=== PATIENT | female | born 1950 | race African-American/Black ===

== ENCOUNTER 2018-11-17 06:22 | Emergency (ER) | payer MEDICARE, OTHER ==
[~2018-11-17] VITALS: Ht 162.6 cm; Wt 63.5 kg
[~2018-11-17 06:22] MED LIST: ALENDRONATE SOD70 MG ORAL; BACTRIM DS TAB1 EAC1 ORAL; BACTRIM-DS1 EA PO; CYCLOBENZAPRINE10 MG ORAL; FOLIC ACID1 MG ORAL; IBUPROFEN600 MG ORAL; LANTUS SOL100 UNIT/1 SUBQ; LEVAQUIN750 MG ORAL; LEVEMIR FL100 UNIT/1 SUBQ; LEVOTHYROXINE50 MCG ORAL; METFORMIN HCL500 M1 ORAL; MULTIVITAMINS1 EAC2 ORAL; NORCO 5-325 TA1 EACH ORAL; OMEGA-3100 M1 PO; OMEPRAZOLE20 M2 ORAL; OMEPRAZOLE20 M3 ORAL; PREDNISONE10 MG ORAL; PREDNISONE5 MG ORAL; TRAMADOL HCL50 MG ORAL; VALIUM5 MG ORAL
[2018-11-17 06:29] VITALS: BP 121/70
[2018-11-17] MEDS ORDERED: Sodium Chloride 500ML 500 ML IV ONE (06:45)
[2018-11-17 07:16] LABS: ANION GAP 11 mmol/L (5-15); BLOOD UREA NITROGEN 25 mg/dL (7-18); CALCIUM 9.2 MG/DL (8.5-10.1); CARBON DIOXIDE 22 MMOL/L (21-32); CHLORIDE 102 MMOL/L (98-107); POTASSIUM 4.1 MMOL/L (3.5-5.1); SODIUM 135 MMOL/L (136-145)
[2018-11-17 07:18] LABS: BASOPHILS % (AUTO) 2.4 % (0.0-2.0); EOSINOPHILS % (AUTO) 1.7 % (0.0-3.0); HEMATOCRIT 32.5 % (37.0-47.0); HEMOGLOBIN 10.8 G/DL (12.0-16.0); LYMPHOCYTES % (AUTO) 37.9 % (20.0-45.0); MEAN CORPUSCULAR VOLUME 98 FL (80-99); MONOCYTES % (AUTO) 9.7 % (1.0-10.0); NEUTROPHILS % (AUTO) 48.3 % (45.0-75.0); PLATELET COUNT 150 K/UL (150-450); RED BLOOD COUNT 3.31 M/UL (4.20-5.40); RED CELL DISTRIBUTION WIDTH 11.9 % (11.6-14.8); WHITE BLOOD COUNT 6.9 K/UL (4.8-10.8)
[2018-11-17 07:21] LABS: ALANINE AMINOTRANSFERASE 68 U/L (12-78); ALBUMIN 3.4 G/DL (3.4-5.0); ALBUMIN/GLOBULIN RATIO 0.7 (1.0-2.7); ALKALINE PHOSPHATASE 50 U/L (46-116); ASPARTATE AMINO TRANSFERASE 72 U/L (15-37); BILIRUBIN,TOTAL 0.6 MG/DL (0.2-1.0)
[2018-11-17] MEDS ORDERED: METFORMIN HCL500 M1 ORAL (08:05)
[2018-11-17] MEDS ORDERED: SYNTHROID50 MCG ORAL (08:05)
[2018-11-17 08:12] VITALS: BP 136/65
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
== END 2018-11-17 08:22 | disposition home or self-care (01) ==
LOC: EDBD 06:22 → EMR 07:40
DX: Z76.0 Encounter for issue of repeat prescription (principal); F41.9 Anxiety disorder, unspecified; Z88.0 Allergy status to penicillin; E11.9 Type 2 diabetes mellitus without complications; K21.9 Gastro-esophageal reflux disease without esophagitis
CPT/HCPCS: 36415; 80053; 80307; 85025; 99284; G0480; 80329

== ENCOUNTER 2020-07-19 13:54 | Inpatient (IN) | payer MEDICARE, OTHER ==
[~2020-07-19] VITALS: Ht 154.9 cm; Wt 55.8 kg
[~2020-07-19 13:54] MED LIST changes: +SYNTHROID50 MCG ORAL
[2020-07-19 14:00] VITALS: BP 134/70
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
[2020-07-19] MEDS ORDERED: Metoclopramide 10mg/2ml Inj IVP ONE (14:15)
[2020-07-19] MEDS ORDERED: DiphenhydrAMINE 50mg/ml Inj IVP ONE (14:15)
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
[2020-07-19 14:47] LABS: HEMATOCRIT 22.3 % (37.0-47.0); HEMOGLOBIN 7.1 G/DL (12.0-16.0); MEAN CORPUSCULAR VOLUME 93 FL (80-99); PLATELET COUNT 131 K/UL (150-450); RED CELL DISTRIBUTION WIDTH 13.3 % (11.6-14.8); WHITE BLOOD COUNT 8.6 K/UL (4.8-10.8)
[2020-07-19 14:47] LABS: APPEARANCE,URINE SLIGHTLY CLOUDY; BILIRUBIN, URINE NEGATIVE (NEGATIVE); COLOR,URINE PALE YELLOW; GLUCOSE, URINE (UA) NEGATIVE (NEGATIVE); KETONES,URINE NEGATIVE (NEGATIVE); LEUKOCYTE ESTERASE ,URINE NEGATIVE (NEGATIVE); NITRITE,URINE NEGATIVE (NEGATIVE); PH,URINE 5 (4.5-8.0); PROTEIN,URINE 2+ (NEGATIVE); UROBILINOGEN,URINE NORMAL MG/DL (0.0-1.0)
[2020-07-19 14:55] LABS: INR 1.2 (0.9-1.1)
[2020-07-19 15:10] LABS: ANION GAP 19 mmol/L (5-15); BLOOD UREA NITROGEN 79 mg/dL (7-18); CALCIUM 9.3 MG/DL (8.5-10.1); CARBON DIOXIDE 15 MMOL/L (21-32); CHLORIDE 109 MMOL/L (98-107); CREATININE 5.5 MG/DL (0.55-1.30); POTASSIUM 3.7 MMOL/L (3.5-5.1); SODIUM 142 MMOL/L (136-145)
--- NOTE | 2020-07-19 15:26 | Diagnostic Imaging Report ---
Procedure: XRAY Chest 1v Reason for study: Shortness of breath. Comparison films: 10/31/2018. FINDINGS: A single one view chest is obtained. Vascularity is normal. The lung concepcion are clear bilaterally. Cardiac and mediastinal silhouette are within normal limits. CP angles are sharp. Old healed fracture deformity of the right humeral shaft noted. Fixation rods and screws noted in the proximal lumbar spine. IMPRESSION: NO ACUTE CARDIOPULMONARY DISEASE.
[2020-07-19 15:27] LABS: ALANINE AMINOTRANSFERASE 34 U/L (12-78); ALBUMIN 3.5 G/DL (3.4-5.0); ALBUMIN/GLOBULIN RATIO 0.8 (1.0-2.7); ALKALINE PHOSPHATASE 38 U/L (46-116); AMYLASE 117 U/L (25-115); ASPARTATE AMINO TRANSFERASE 39 U/L (15-37); BILIRUBIN,TOTAL 0.5 MG/DL (0.2-1.0); CREATINE KINASE 207 U/L (26-308); FERRITIN 20 NG/ML (8-388); LACTATE DEHYDROGENASE 229 U/L (81-234)
--- NOTE | 2020-07-19 15:40 | NUR ---
ED Nurse Note: Typing and screening specimen sent.
[2020-07-19 16:02] VITALS: BP 127/80
--- NOTE | 2020-07-19 16:02 | NUR ---
ED Nurse Note: Collected covid19 swab and repeat lactic acid then sent.
--- NOTE | 2020-07-19 17:38 | NUR ---
ED Nurse Note: REPORT GIVEN TO ARTURO MILIAN
[2020-07-19 17:50] VITALS: BP 135/70
--- NOTE | 2020-07-19 17:50 | NUR ---
ED Nurse Note: Patient transferred to Med Surg unit with all her belongings sent with her. Stable for transport.
--- NOTE | 2020-07-19 17:50 | NUR ---
NURSE NOTES: Received patient into room 406 bed 2,alert and oriented x4,respirations unlabored.Patient state she is blind in the right eye and has partial sight in the left eye.Patient will need assist.Will notify DR of patient room number and for orders Bed alarm on,call light within reach
[2020-07-19 18:21] VITALS: BP 140/70
[2020-07-19] MEDS ORDERED: HydrALAZINE 25mg tab ORAL PRN (19:00)
[2020-07-19] MEDS ORDERED: Metoclopramide 10mg/2ml Inj IVP PRN (19:00)
--- NOTE | 2020-07-19 19:25 | NUR ---
NURSE NOTES: Received report from Yary MORRIS.
--- NOTE | 2020-07-19 19:25 | NUR ---
NURSE NOTES: Received pt. in bed, awake, alert and oriented x4. Breathing even and unlabored. No sob noted. Denies any pain at this time. Pt. able to verbalize the reason of her admission. Body assessment done, no skin breakdown noted. Oriented to hospital policies and inside her room.Admission orders was in place by Dr. Zaragoza. Orders carried out. Pt. was placed NPO, made her aware and verbalized understanding. Started ivf of 1/2 NS x 50cc/hr, infusing well. Will continue with plan of care. Rojas stoll called and is aware of pt. being admitted.
[2020-07-19] MEDS ORDERED: Varibar Honey 250ml MC PRN (19:45)
[2020-07-19] MEDS ORDERED: Varibar Thin Liquid powder 148gm MC PRN (19:45)
[2020-07-19] MEDS ORDERED: Varibar Nectar 240ml MC PRN (19:45)
[2020-07-19] MEDS ORDERED: Varibar Pudding 230ml MC PRN (19:45)
--- NOTE | 2020-07-19 19:45 | NUR ---
NURSE HAND-OFF: VIC RN Important Events on Shift:[] Patient Status: [] Diet: [] Pending Orders: [] Pending Results/Labs:[] Pending MD notification:[] Latest Vital Signs: Temperature 97.7 , Pulse 86 , B/P 140 /70 , Respiratory Rate 18 , O2 SAT 99 , Room Air, O2 Flow Rate . Vital Sign Comment: [] Latest English Fall Score: Fall Risk: Safety Measures: Call light Within Reach, Bed Alarm , Side Rails Side Rails x2, Bed position . Fall Precautions: Yellow Socks Yellow Gown Door Sign Patient Fall Education Report given to [].
[2020-07-19] MEDS ORDERED: Dextrose 50% 25ml Syringe IV PRN (22:00)
[2020-07-19 22:43] VITALS: BP 107/67
[2020-07-19] MEDS: Insulin NovoLOG Flexpen S/S (insulin sensitive) SUBQ SCH (23:00)
[2020-07-19 23:03] VITALS: BP 107/77
[2020-07-19] MEDS ORDERED: D5 1/2NS 1,000 ML IV SCH (23:45)
--- NOTE | 2020-07-20 01:09 | NUR ---
NURSE NOTES: Pt. comfortable @ all times. Denies any pain. Due meds given. Slept @ long intervals. Vitals signs monitored. BS checked =106; IVF changed to D5 1/2 NS x 50 cc/hr as ordered. NPO instructed and verbalized understanding. Will continue to monitor.
[2020-07-20 04:00] VITALS: BP 119/74
[2020-07-20] MEDS: Sodium Citrate 30ml ORAL SCH ×4 (05:53→19:02)
[2020-07-20] MEDS: Insulin NovoLOG Flexpen S/S (insulin sensitive) SUBQ SCH ×3 (05:54→16:30)
[2020-07-20 06:36] LABS: HEMATOCRIT 20.5 % (37.0-47.0); MEAN CORPUSCULAR VOLUME 93 FL (80-99); PLATELET COUNT 107 K/UL (150-450); RED BLOOD COUNT 2.21 M/UL (4.20-5.40); RED CELL DISTRIBUTION WIDTH 12.7 % (11.6-14.8); WHITE BLOOD COUNT 7.5 K/UL (4.8-10.8)
[2020-07-20 06:45] LABS: HEMOGLOBIN 6.7 G/DL (12.0-16.0)
[2020-07-20 07:14] LABS: ALANINE AMINOTRANSFERASE 31 U/L (12-78); ALBUMIN 3.3 G/DL (3.4-5.0); ALBUMIN/GLOBULIN RATIO 0.8 (1.0-2.7); ALKALINE PHOSPHATASE 37 U/L (46-116); ANION GAP 17 mmol/L (5-15); ASPARTATE AMINO TRANSFERASE 36 U/L (15-37); BILIRUBIN,TOTAL 0.5 MG/DL (0.2-1.0); BLOOD UREA NITROGEN 69 mg/dL (7-18); CALCIUM 8.4 MG/DL (8.5-10.1); CARBON DIOXIDE 16 MMOL/L (21-32); CHLORIDE 116 MMOL/L (98-107); CHOLESTEROL 138 MG/DL (< 200); CREATINE KINASE 162 U/L (26-308); GAMMA GLUTAMYL TRANSPEPTIDASE 33 U/L (5-85); HDL CHOLESTEROL 33 MG/DL (40-60); PHOSPHORUS 3.3 MG/DL (2.5-4.9); POTASSIUM 3.9 MMOL/L (3.5-5.1); SODIUM 149 MMOL/L (136-145); TRIGLYCERIDES 104 MG/DL (30-150)
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
--- NOTE | 2020-07-20 07:35 | NUR ---
NURSE NOTES: Hgb was called in by lab=6.[address] Mohan and made aware, ordered to consult Dr. Nunez, collect stool for guaiac x 3. Orders taken and carried out. Called Dr. Nunez and made aware, ordered to transfuse x 1PRBC.Endorsed to Yary MORRIS.
--- NOTE | 2020-07-20 07:40 | NUR ---
NURSE HAND-OFF: Important Events on Shift:admission process, low hgb Patient Status: Diet: NPO except ice chips and meds Pending Orders: Pending Results/Labs: Pending MD notification: Latest Vital Signs: Temperature 98.4 , Pulse 85 , B/P 119 /74 , Respiratory Rate 18 , O2 SAT 95 , Room Air, O2 Flow Rate . Vital Sign Comment: Latest English Fall Score: 55 Fall Risk: High Risk Safety Measures: Call light Within Reach, Bed Alarm Zone 2, Side Rails Side Rails x2, Bed position Low and Locked. Fall Precautions: Yellow Socks Yellow Gown Door Sign Patient Fall Education Report given to Yary MORRIS.
[2020-07-20 07:50] LABS: % IRON SATURATION 19 % (15-50); IRON 73 ug/dL (50-175); TOTAL IRON BINDING CAPACITY 383 ug/dL (250-450)
[2020-07-20 08:00] VITALS: BP 145/75
--- NOTE | 2020-07-20 08:00 | NUR ---
NURSE NOTES: patient alert and oriented,respirations unlabored.IV fluids infusing as ordered.Dockery catheter is in place with yellow urine noted,sediments noted in drainage tube.Patient is NPO for schedule test.Bed alarm on,call light within reach.
[2020-07-20 08:18] LABS: INR 1.3 (0.9-1.1)
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
--- NOTE | 2020-07-20 09:25 | NUR ---
RD ASSESSMENT & RECOMMENDATIONS SEE CARE ACTIVITY FOR COMPLETE ASSESSMENT DAILY ESTIMATED NEEDS: Needs based on Renal, 52kg 25-35 kcals/kg 5505-1415 total kcals 1-1.5 g protein/kg 52-78 g total protein 25-30 mL/kg 1656-1761 total fluid mLs NUTRITION DIAGNOSIS: Altered nutrition related lab values r/t Clinical status as evidenced by Hgb 6.7, elev Na 149, elev BUN 69, elev Creat 5.0. CURRENT DIET: NPO PO DIET RECOMMENDATIONS: rec LOW NA DIET / texture per BUNCHER OPERATOR ADDITIONAL RECOMMENDATIONS: 1) Maintain daily wts on calibrated bed scale 2) F/up w/ H&P 3) Pt adm w/ renal failure-> monitor lytes 4) Add NEPRO qdaily w/ diet 5) Monitor BG, need for carb control diet
[2020-07-20] MEDS: Docusate 100mg cap ORAL SCH ×3 (09:44→19:02)
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
[2020-07-20] MEDS ORDERED: Iron Sucrose 200 MG in NS 110 ML IV ONE (11:00)
--- NOTE | 2020-07-20 11:49 | Diagnostic Imaging Report ---
EXAM: ULTRASOUND US Renal Comp CLINICAL HISTORY: Abdominal pain. COMPARISON: None TECHNIQUE: Ultrasound examination of the kidneys includes grayscale images, and color and spectral doppler analysis. FINDINGS: The right kidney measures 9.1 x 4.9 x 4.4 cm and the left kidney measures 7.7 x 4.4 x 3.3 cm. Kidneys appear echogenic likely reflecting medical renal disease. There is no hydronephrosis or stone seen bilaterally. Urinary bladder is empty with Nails catheter in place IMPRESSION: SMALL LEFT KIDNEY. BOTH KIDNEYS APPEAR ECHOGENIC LIKELY REFLECTING MEDICAL RENAL DISEASE. NO OBSTRUCTIVE UROPATHY. 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
[2020-07-20 12:00] VITALS: BP 142/70
--- NOTE | 2020-07-20 12:00 | History and Physical Report ---
DATE OF ADMISSION: 07/19/2020 TIME SEEN: 10 a.m. CONSULTANTS: 1. Dr. Nunze. 2. Almas Champion MD. 3. Severiano Stanton MD. CHIEF COMPLAINT: Failure to thrive, weakness, nausea, acute renal failure, severe anemia. BRIEF HISTORY: This is a 70-year-old female who lives at home presents with one week of increased weakness, nausea, and came to [place], diagnosed with severe anemia at 6.7, also acute renal failure, and failure to thrive. The patient was admitted to medical floor. Currently, calm in room, slightly weak, no complaint. REVIEW OF SYSTEMS: No chest pain. No shortness of breath. Slight nausea. No vomiting. No diarrhea. PAST MEDICAL HISTORY: Includes diabetes, arthritis, anemia. PAST SURGICAL HISTORY: Right eye. MEDICATIONS: Epoetin, allopurinol, docusate sodium, magnesium, levothyroxine, insulin, pantoprazole, hydralazine, Reglan. ALLERGIES: Penicillin. SOCIAL HISTORY: No smoking. No alcohol. No intravenous drug abuse. FAMILY HISTORY: Noncontributory. PHYSICAL EXAMINATION: GENERAL: Slightly anxious in bed, oriented x2, in no acute distress. VITAL SIGNS: Temperature 98, pulse 84, respiratory rate 18, blood pressure 119/74. CARDIOVASCULAR: No murmur. LUNGS: Distant and clear. ABDOMEN: Bowel sound positive. Nontender. Nondistended. EXTREMITIES: No cyanosis or edema. NEUROLOGIC: The patient moves all extremities, slightly weak. LABORATORY DATA: Labs at this time show hemoglobin and hematocrit of 7.1 and 22 now is 6.7 and 20, otherwise platelets 107, thrombocytopenia. BMP shows sodium 149, chloride 119, CO2 16, BUN and creatinine 5.0, glucose 133. Calcium 8.4, magnesium 1.5. BMP is 969. Albumin 3.3. INR is 1.3 and PTT is 25. Urinalysis shows 3+ blood, 2+ protein. Urine toxicology is negative. ASSESSMENT: 1. Acute renal failure. 2. Weakness. 3. Nausea. 4. Anemia. 5. Thrombocytopenia. 6. Failure to thrive. 7. Right eye blind. 8. Malnutrition. 9. Diabetes. 10. Arthritis. PLAN: 1. Transfuse as needed. 2. Nephrology followup. 3. IV fluids. 4. Blood sugar control. 5. Pain control. 6. 7. CBC and BMP in the morning. 8. Dietary evaluation. 9. PT evaluation. Danyel Mohan D.O. DR: Rafy JOB#: [id number] CC:
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
--- NOTE | 2020-07-20 15:09 | NUR ---
NURSE NOTES:patient stated that her blood type did not match the type and cross from the lab. Patient stated that she is O+ and not A+. patient is alert and oriented x4. Placed another order for the type and cross to verify patient type and cross.
[2020-07-20 16:00] VITALS: BP 127/63
--- NOTE | 2020-07-20 16:22 | Cardiology Report ---
APPROVED REPORT EXAM: Two-dimensional and M-mode echocardiogram with Doppler and color Doppler. INDICATION Congestive Heart Failure M-Mode DIMENSIONS IVSd1.0 (0.7-1.1cm)Left Atrium (MM)3.7 (1.6-4.0cm) LVDd4.1 (3.5-5.6cm)Aortic Root3.1 (2.0-3.7cm) PWd1.0 (0.7-1.1cm)Aortic Cusp Exc.2.0 (1.5-2.0cm) IVSs1.7 cmEPSS0.3 (>1.0cm) LVDs2.7 (2.5-4.0cm) PWs1.1 cm <Conclusion> Normal left ventricular chamber size, systolic function and wall motion. Left ventricular ejection fraction estimated to be 65-70%. Mild left ventricular hypertrophy by 2-D. No evidence of pericardial effusion. All other cardiac chamber sizes are within normal limits. Focal aortic valve sclerosis with adequate cusp excursion. Thickened mitral valve leaflets with normal excursion. Mild mitral annulus and aortic root calcification. Pulmonic valve not well visualized. Normal tricuspid valve structure. IVC at normal size and collapsing with respiration. A color flow and spectral Doppler study was performed and revealed: No aortic insufficiency. Trace mitral regurgitation. Mitral diastolic velocities suggest reduced left ventricular relaxation c/w mild LV diastolic dysfunction (Grade I ). Trace to mild tricuspid regurgitation. Tricuspid systolic velocities suggests peak right ventricular systolic pressure of 30 mmHg. Pulmonic regurgitation present.
--- NOTE | 2020-07-20 16:29 | Cardiology Report ---
APPROVED REPORT EKG Measurement Heart [id number] <Conclusion> Normal sinus rhythm Left anterior fascicular block Nonspecific ST and T wave abnormality Abnormal ECG
--- NOTE | 2020-07-20 16:32 | NUR ---
NURSE NOTES: Received phone call from [facility] Abi, she rechecked type and cross. Patient's blood type is A+ , unable to give o+ since there is A+ blood in [facility]. machine shorthand reporter endorsed to primary nurse Yary to follow up.
--- NOTE | 2020-07-20 16:46 | NUR ---
NURSE NOTES: Patient was typed and screen again to verify blood type,lab results state that patient is A positive.Patient still does no believe that this results is correct,patient refusing transfusion,will notify DR Mills
--- NOTE | 2020-07-20 17:50 | NUR ---
NURSE NOTES: DR Nunez and DR Dumont aware of patient concern regarding Blood transfusion and Blood type and Patient refusing blood transfusion. DR Nunez aware of order of patient to received Iron Sucrose IV and okay to give as ordered.Patient concern about constipation and wants to receive Iron Sucrose later.Patient wants to have a bowel movement first.
--- NOTE | 2020-07-20 19:40 | NUR ---
NURSE HAND-OFF: Colin MORRIS Important Events on Shift:[]Blood transfusion pending,patient refusing DRs aware Patient Status: [] Diet: [ Renal ] Pending Orders: [Blood transfusion ] Pending Results/Labs:[] Pending MD notification:[] Latest Vital Signs: Temperature 98.4 , Pulse 87 , B/P 127 /63 , Respiratory Rate 18 , O2 SAT 99 , Room Air, O2 Flow Rate . Vital Sign Comment: [] Latest English Fall Score: 55 Fall Risk: High Risk Safety Measures: Call light Within Reach, Bed Alarm Zone 2, Side Rails Side Rails x2, Bed position Low and Locked. Fall Precautions: Yellow Socks Yellow Gown Door Sign y Patient Fall Education Report given to [].
[2020-07-20 20:00] VITALS: BP 142/74
--- NOTE | 2020-07-20 20:02 | NUR ---
NURSE NOTES: Pt. received from ARTURO Pringle. Pt. AAOx4, on room air, breathing even and unlabored, no complaints of pain, no indications of respiratory distress at this time. Pt. complaining of constipation, will follow up with ordered interventions. Endorsed by day shift RN pt refused blood transfusion, MD Nunez and MD Champion aware, will discuss concerns with pt. IV noted left AC 20g intact and patent running D5W at 75 cc. Bed low and locked, side rails x2 up, bed alarm active, and call light in reach.
[2020-07-20] MEDS: Epoetin Alfa-EPBX (NON ESRD)10,000 unit/ml vial SUBQ SCH (20:57)
--- NOTE | 2020-07-20 21:15 | NUR ---
NURSE NOTES: Discussed with pt. concern for need for venofer and blood transfusion. Pt. concerned with wanting strong bowel movement before receiving venofer. Discussed risks vs. benefits regarding not receiving interventions for low hemoglobin and pt. acknowledged and verbalized understanding. Will continue to give pt. education.
--- NOTE | 2020-07-20 23:00 | NUR ---
NURSE NOTES: Pt. with small walnut sized bowel movement, still complaining of constipation and abdominal discomfort. Discussed MD's order for venofer and pt. continues to refuse administration until complete relief of abdominal symptoms. Discussed concerns with low hemoglobin and need to follow up with MD's orders.
[2020-07-21] VITALS: BP 139/69
[2020-07-21] MEDS: Sodium Citrate 30ml ORAL SCH ×5 (00:50→23:34)
[2020-07-21 04:00] VITALS: BP 133/69
[2020-07-21] MEDS: Insulin NovoLOG Flexpen S/S (insulin sensitive) SUBQ SCH ×3 (05:49→16:35)
--- NOTE | 2020-07-21 06:31 | NUR ---
NURSE NOTES: Provided education on blood transfusion procedure, discussed pt's past type in screen in 2018 documented in pt.'s chart indicating pt. is A positive, and reinforced indication for blood transfusion as related to low hemoglobin. Discussed with pt. to voice concerns with Dr. Nunez.
[2020-07-21 06:48] LABS: HEMATOCRIT 18.3 % (37.0-47.0); MEAN CORPUSCULAR VOLUME 91 FL (80-99); PLATELET COUNT 87 K/UL (150-450); RED BLOOD COUNT 2.01 M/UL (4.20-5.40); RED CELL DISTRIBUTION WIDTH 12.5 % (11.6-14.8); WHITE BLOOD COUNT 9.1 K/UL (4.8-10.8)
[2020-07-21 06:50] LABS: HEMOGLOBIN 6.2 G/DL (12.0-16.0)
--- NOTE | 2020-07-21 06:53 | NUR ---
NURSE NOTES: Critical lab of hgb 6.2 received from Elke in lab, will notify primary and Dr. Nunez.
--- NOTE | 2020-07-21 06:59 | NUR ---
NURSE NOTES: Message left for Dr. Mohan and Dr. Saucedo, awaiting return call and orders.
[2020-07-21 07:08] LABS: CALCIUM 8.2 MG/DL (8.5-10.1); CREATININE 4.9 MG/DL (0.55-1.30); POTASSIUM 3.8 MMOL/L (3.5-5.1)
--- NOTE | 2020-07-21 07:14 | NUR ---
NURSE HAND-OFF: Important Events on Shift:[small bowel movement with first ob stool sent, pt. with hbg 6.[address] Mohan and Dr Nunez, awaiting return call, provided education regarding needed blood transfusion] Patient Status: Awake and alert Diet: renal Pending Orders: na Pending Results/Labs:ob stool Pending MD notification: notification of hgb 6.2 Latest Vital Signs: Temperature 97.0 , Pulse 89 , B/P 133 /69 , Respiratory Rate 18 , O2 SAT 95 , Room Air, O2 Flow Rate . Vital Sign Comment: stable Latest English Fall Score: 55 Fall Risk: High Risk Safety Measures: Call light Within Reach, Bed Alarm Zone 1, Side Rails Side Rails x2, Bed position Low and Locked. Fall Precautions: Yellow Socks Yellow Gown Door Sign Patient Fall Education Report given to .
--- NOTE | 2020-07-21 07:30 | NUR ---
NURSE NOTES: Received patient in bed eating breakfast, patient is awake, alert, oriented x4, no sign of distress, on RA,Denies any pain or discomfort at this time,IVF patent and infusing well, explained patient the doctor ordered 2 Units of blood transfusion her HGB IS 6.2 But patient stated, I'm going to think about it , I will let you know if I'm ready . On fall precaution, Bed low and locked, side rails x2 up, bed alarm active, and call light in reach. kiana faye
--- NOTE | 2020-07-21 07:49 | NUR ---
HAND-OFF: Report given to ARTURO Smith; 2 units pRBC ordered from Dr. Nunez.
[2020-07-21 08:09] VITALS: BP 125/67
[2020-07-21] MEDS: Nephrovite tab (Rena-Vite) ORAL SCH (08:51)
--- NOTE | 2020-07-21 08:51 | NUR ---
nurse notes im giving medications to patient , and explaining patient the necessity of getting blood transfusion patient stated I will let you know ,explained also to patient Dr Couch ordered 2 Units of BT, But still patient stated I dont want to get it yet, I will let you know so still refusing blood transfusion kiana faye
[2020-07-21] MEDS: Docusate 100mg cap ORAL SCH ×3 (08:52→17:22)
[2020-07-21] MEDS: Thiamine 100mg tab ORAL SCH (08:52)
[2020-07-21 12:11] VITALS: BP 110/59
--- NOTE | 2020-07-21 12:20 | NUR ---
nurse notes tried to convice again for Blood transfusion patient still not decided kiana faye
--- NOTE | 2020-07-21 13:29 | General Progress Note ---
Subjective Constitutional: Reports: weakness Allergies: Coded Allergies: PENICILLINS (Verified Allergy, Severe, Rash, 12/23/13) PENICILLIN G (Unverified Allergy, Unknown, 11/17/18) All Systems: reviewed and negative except above Subjective calm in room, refusing transfusion Objective Last 24 Hour Vital Signs Date Time Temp Pulse Resp B/P (MAP) Pulse Ox O2 Delivery O2 Flow Rate FiO2 07/21/20 12:11 98.5 76 18 110/59 (76) 98 07/21/20 08:09 98.4 88 19 125/67 (86) 95 07/21/20 07:30 Room Air Room Air 07/21/20 04:00 97.0 89 18 133/69 (90) 95 07/21/20 00:00 97.9 91 20 139/69 (92) 100 07/20/20 21:00 Room Air Room Air 07/20/20 20:00 97.5 89 18 142/74 (96) 99 07/20/20 16:00 98.4 87 18 127/63 (84) 99 Intake and Output 07/20/20 07/21/20 19:00 07:00 Intake Total 1635 ml 1300 ml Output Total 600 ml 800 ml Balance 1035 ml 500 ml Intake Oral 960 ml 400 ml IV Total 675 ml 900 ml Output Urine Total 600 ml 800 ml # Bowel Movements 1 Laboratory Tests 07/20/20 23:00: Stool Occult Blood Positive 07/21/20 04:00: Urine Eosinophils None seen 07/21/20 05:33: POC Whole Blood Glucose 145H 07/21/20 05:50: White Blood Count 9.1, Red Blood Count 2.01L, Hemoglobin 6.2*L, Hematocrit 18.3L , Mean Corpuscular Volume 91, Mean Corpuscular Hemoglobin 30.7, Mean Corpuscular Hemoglobin Concent 33.6, Red Cell Distribution Width 12.5, Platelet Count 87L, Mean Platelet Volume 5.4L, Neutrophils (%) (Auto) , Lymphocytes (%) (Auto) , Monocytes (%) (Auto) , Eosinophils (%) (Auto) , Basophils (%) (Auto) , Differential Total Cells Counted 100, Neutrophils % (Manual) 56, Lymphocytes % (Manual) 37, Monocytes % (Manual) 7, Eosinophils % (Manual) 0, Basophils % (Manual) 0, Band Neutrophils 0, Platelet Estimate DecreasedL, Platelet Morp hology Normal, Hypochromasia 4+, Anisocytosis 1+, Spherocytes 2+, Sodium Level 138#, Potassium Level 3.8, Chloride Level 106, Carbon Dioxide Level 18L, Anion Gap 14, Blood Urea Nitrogen 60H, Creatinine 4.9H, Estimat Glomerular Filtration Rate 10.7, Glucose Level 143H, Calcium Level 8.2L Height (Feet): 5 Height (Inches): 1.00 Weight (Pounds): 120 General Appearance: lethargic EENT: normal ENT inspection Neck: normal alignment Cardiovascular: normal peripheral pulses, normal rate, regular rhythm Respiratory/Chest: chest wall non-tender, lungs clear, normal breath sounds Abdomen: normal bowel sounds, non tender, soft Extremities: normal inspection Edema: no edema noted Arm (L), no edema noted Arm (R), no edema noted Leg (L), no edema noted Leg (R), no edema noted Pedal (L), no edema noted Pedal (R), no edema noted Generalized Neurologic: responsive, motor weakness Skin: normal pigmentation, warm/dry Assessment/Plan Problem List: (1) Weakness ICD Codes: R53.1 - Weakness SNOMED: 94229531 (2) DM (diabetes mellitus) ICD Codes: E11.9 - Type 2 diabetes mellitus without complications SNOMED: 81143625 (3) Anemia ICD Codes: D64.9 - Anemia, unspecified SNOMED: 771527129 Qualifiers: Qualified Codes: D64.9 - Anemia, unspecified (4) Acute renal failure ICD Codes: N17.9 - Acute kidney failure, unspecified SNOMED: 35694127 Qualifiers: Qualified Codes: N17.9 - Acute kidney failure, unspecified (5) FTT (failure to thrive) in adult ICD Codes: R62.7 - Adult failure to thrive SNOMED: 511313676 Status: unchanged Assessment/Plan: pt diet gi f/u transfuse prn cbc bmp am psyc Danyel Tate DO Jul 21, 2020 13:29
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
[2020-07-21] MEDS ORDERED: LORazepam 1mg tab ORAL PRN (15:15)
--- NOTE | 2020-07-21 15:26 | Nephrology Progress Note ---
Assessment/Plan Problem List: (1) Renal failure (ARF), acute on chronic (2) Acute renal failure (3) Anemia in chronic kidney disease (CKD) (4) FTT (failure to thrive) in adult (5) DM (diabetes mellitus) Assessment Renal failure most likely acute on chronic Anemia, most likely anemia of chronic disease History of diabetes, Plan 2D echocardiogram monitor results noted Kidney ultrasound, results noted Nails catheter Urine studies Avoid nephrotoxic's Anemia work-up Subcu Epogen IV iron Transfusion, patient refused transfusion. She does not believe that the type and crossmatch at the [facility] matches her blood group and type Per orders Kidney ultrasound results: SMALL LEFT KIDNEY. BOTH KIDNEYS APPEAR ECHOGENIC LIKELY REFLECTING MEDICAL RENAL DISEASE. NO OBSTRUCTIVE UROPATHY. 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 2D echocardiogram results: Normal left ventricular chamber size, systolic function and wall motion. Left ventricular ejection fraction estimated to be 65-70%. Mild left ventricular hypertrophy by 2-D. Subjective ROS Limited/Unobtainable: No Constitutional: Reports: malaise, weakness Objective Objective Last 24 Hour Vital Signs Date Time Temp Pulse Resp B/P (MAP) Pulse Ox O2 Delivery O2 Flow Rate FiO2 07/21/20 12:11 98.5 76 18 110/59 (76) 98 07/21/20 08:09 98.4 88 19 125/67 (86) 95 07/21/20 07:30 Room Air Room Air 07/21/20 04:00 97.0 89 18 133/69 (90) 95 07/21/20 00:00 97.9 91 20 139/69 (92) 100 07/20/20 21:00 Room Air Room Air 07/20/20 20:00 97.5 89 18 142/74 (96) 99 07/20/20 16:00 98.4 87 18 127/63 (84) 99 Intake and Output 07/20/20 07/21/20 19:00 07:00 Intake Total 1635 ml 1300 ml Output Total 600 ml 800 ml Balance 1035 ml 500 ml Intake Oral 960 ml 400 ml IV Total 675 ml 900 ml Output Urine Total 600 ml 800 ml # Bowel Movements 1 Laboratory Tests 07/20/20 23:00: Stool Occult Blood Positive 07/21/20 04:00: Urine Eosinophils None seen 07/21/20 05:33: POC Whole Blood Glucose 145H 07/21/20 05:50: White Blood Count 9.1, Red Blood Count 2.01L, Hemoglobin 6.2*L, Hematocrit 18.3L , Mean Corpuscular Volume 91, Mean Corpuscular Hemoglobin 30.7, Mean Corpuscular Hemoglobin Concent 33.6, Red Cell Distribution Width 12.5, Platelet Count 87L, Mean Platelet Volume 5.4L, Neutrophils (%) (Auto) , Lymphocytes (%) (Auto) , Monocytes (%) (Auto) , Eosinophils (%) (Auto) , Basophils (%) (Auto) , Differential Total Cells Counted 100, Neutrophils % (Manual) 56, Lymphocytes % (Manual) 37, Monocytes % (Manual) 7, Eosinophils % (Manual) 0, Basophils % (Manual) 0, Band Neutrophils 0, Platelet Estimate DecreasedL, Platelet Morphology Normal, Hypochromasia 4+, Anisocytosis 1+, Spherocytes 2+, Sodium Level 138#, Potassium Level 3.8, Chloride Level 106, Carbon Dioxide Level 18L, Anion Gap 14, Blood Urea Nitrogen 60H, Creatinine 4.9H, Estimat Glomerular Filtration Rate 10.7, Glucose Level 143H, Calcium Level 8.2L Height (Feet): 5 Height (Inches): 1.00 Weight (Pounds): 120 General Appearance: no apparent distress, lethargic Cardiovascular: normal rate Respiratory/Chest: decreased breath sounds Abdomen: soft Almas Champion MD Jul 21, 2020 15:26
[2020-07-21 16:09] VITALS: BP 103/54
[2020-07-21] MEDS: Memantine 5 MG TAB ORAL SCH (17:22)
--- NOTE | 2020-07-21 18:25 | NUR ---
NURSE NOTES Patient agreed to have blood transfusion consent signed CHANTEL MORRIS
--- NOTE | 2020-07-21 19:20 | NUR ---
NURSE HAND-OFF: Important Events on Shift:[ Patient signed consent for blood transfusion] Patient Status: [on going] Diet: [renal diet] Pending Orders: [ blood transfusion] Pending Results/Labs:[labs in am] Pending MD notification:[none] Latest Vital Signs: Temperature 98.8 , Pulse 75 , B/P 103 /54 , Respiratory Rate 17 , O2 SAT 98 , Room Air, O2 Flow Rate . Vital Sign Comment: [stable] Latest English Fall Score: 55 Fall Risk: High Risk Safety Measures: Call light Within Reach, Bed Alarm Zone 1, Side Rails Side Rails x2, Bed position Low and Locked. Fall Precautions: Yellow Socks Yellow Gown Door Sign Patient Fall Education Report given to [ARTURO Lunsford]. ARTURO GOLDEN
[2020-07-21 20:00] VITALS: BP 128/63
--- NOTE | 2020-07-21 20:06 | NUR ---
NURSE NOTES: RECEIVED PATIENT ARTURO ACUNA. PATIENT IS AWAKE, AAOX4, ON ROOM AIR, NO ACUTE DISTRESS NOTED. PIV ON LEFT AC 20G INTACT AND PATENT. NAILS CATH IN PLACE, DRAINING WELL, YELLOW URINE NOTED. BLOOD TRANSFUSION PENDING, AWAITING FOR BLOOD BANK TO PREPARE ORDERS. WILL FOLLOW UP. BED IS LOCKED AND LOW, BED ALARMS ACTIVE, SIDE RAILS UPX2 AND CALL LIGHT IS WITHIN REACH. WILL CONTINUE TO MONITOR.
[2020-07-21] MEDS: Iron Sucrose 100 MG in NS 55 ML IV SCH (21:00)
--- NOTE | 2020-07-21 22:10 | NUR ---
NURSE NOTES: PREPARING PATIENT FOR 1 UNIT OF BLOOD TRANSFUSION. PRE-TRANFUSION VS: BP 138/61, HR 91, TEMP. 99.0. PATIENT CONSENT REVIEWED. BLOOD TRANSFUSION EDUCATION GIVEN. BLOOD WAS VERIFIED BY 2-RNS. WILL CONTINUE TO MONITOR PATIENT CLOSELY.
--- NOTE | 2020-07-21 22:30 | NUR ---
NURSE NOTES: 15-MINUTES POST BLOOD TRANSFUSION VS: BP 141/66, HR 89, TEMP. 99.0. NO ADVERSE REACTIONS OBSERVED. PATIENT IS IN STABLE CONDITION. INCREASED INFUSION RATE FROM 70 TO 100ML. PATIENT IS TOLERATING TRANSFUSION WELL. WILL CONTINUE TO MONITOR CLOSELY.
[2020-07-22] VITALS: BP 141/66
--- NOTE | 2020-07-22 02:10 | NUR ---
NURSE NOTES: POST TRANSFUSION VS: BP 154/81, HR 89, TEMP. 99.3. NO ADVERSE REACTIONS NOTED. PATIENT IS IN STABLE CONDITION.
--- NOTE | 2020-07-22 03:00 | NUR ---
NURSE NOTES: PATIENT IS RECEIVING ANOTHER 1 UNIT OF PRBC ORDERED. PRE-TRANSFUSION VS: BP 153/71, HR 91, TEMP 97.7. PATIENT CONSENT REVIEWED. BLOOD TRANSFUSION EDUCATION GIVEN. BLOOD WAS VERIFIED BY 2-RNS METHOD WITH CHARGE NURSE WEST. WILL CONTINUE TO MONITOR PATIENT CLOSELY.
--- NOTE | 2020-07-22 03:20 | NUR ---
NURSE NOTES: 15 MINUTES POST TRANSFUSION VS: BP 150/76, HR 90, TEMP. 97.7. PATIENT DENIES SOB, DENIES CHILLS, DENIES CHEST PAIN AND LOWER BACK PAIN. NO ADVERSE REACTIONS NOTED. PATIENT IS IN STABLE CONDITION. WILL CONTINUE TO MONITOR PATIENT CLOSELY.
[2020-07-22 04:00] VITALS: BP 152/78
--- NOTE | 2020-07-22 04:00 | NUR ---
NURSE NOTES: INCREASED BLOOD INFUSION RATE FROM 100 TO 120ML. PATIENT IS TOLERATING TRANSFUSION WELL. WILL CONTINUE TO MONITOR CLOSELY.
[2020-07-22] MEDS: Sodium Citrate 30ml ORAL SCH ×3 (05:45→17:33)
[2020-07-22] MEDS: Insulin NovoLOG Flexpen S/S (insulin sensitive) SUBQ SCH ×3 (05:45→17:33)
--- NOTE | 2020-07-22 05:50 | NUR ---
NURSE NOTES: BLOOD TRANSFUSION COMPLETED. PATIENT IS IN STABLE CONDITION. NO ADVERSE REACTIONS NOTED. WILL CONTINUE TO MONITOR.
--- NOTE | 2020-07-22 07:18 | NUR ---
NURSE NOTES: Received report from Izzy, RN. Patient received lying in hospital bed sitting upright. Patient is AAO x 4, able to make needs known, on bedrest, on RA in no apparent respiratory distress. Pt has purulent drainage on R eye. C/o slight nausea and pain of 5/10 on abdominal area. Refuses pain medications at this time. 2units of PRBCs received last night. Pending lab results for H/H. Pt has desai in place draining yellow clear urine. pIV to LFA 20g asymptomatic, patent. Bed locked, in lowest position, and call light within reach. Will continue POC.
--- NOTE | 2020-07-22 07:36 | Initial Psychiatric Evaluation ---
Psychiatry Consultation Psychiatry Consultation Chief Complaint: Generalized Weakness History of Present Illness: 70-year-old female patient does have some confusion and some disorganized th ought process and generalized weakness seems not understand the severity of her medical illness. 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 Allergies: Coded Allergies: PENICILLINS (Verified Allergy, Severe, Rash, 12/23/13) PENICILLIN G (Unverified Allergy, Unknown, 11/17/18) Medication History Scheduled Folic Acid* (Folic Acid*), 1 MG ORAL DAILY, (Reported) Levothyroxine Sodium* (Levothyroxine Sodium*), 50 MCG ORAL DAILY, (Reported) Metformin Hcl* (Metformin Hcl*), 500 MG ORAL TWICE A DAY Multivitamins* (Multivitamins*), 1 TAB ORAL DAILY, (Reported) Omeprazole (Omeprazole), 20 MG ORAL BID, (Reported) Scheduled PRN Tramadol Hcl* (Ultram*), 50 MG ORAL Q6H PRN for For Pain Discontinued Medications Alendronate Sodium* (Fosamax*), 70 MG ORAL ONCE A WEEK, (Reported) Discontinued Reason: Pt stopped taking med Insulin Detemir (Levemir Flexpen), 18 UNITS SUBQ BEDTIME Discontinued Reason: Pt stopped taking med Insulin Glargine (Lantus), 10 SUBQ BEFORE MEALS AND HS, (Reported) Discontinued Reason: Pt stopped taking med Insulin Glargine (Lantus), 10 SUBQ BEDTIME, (Reported) Discontinued Reason: Pt stopped taking med Insulin Glargine (Lantus), 0 SUBQ BEDTIME, (Reported) Discontinued Reason: Pt stopped taking med Levofloxacin* (Levaquin*), 750 MG ORAL DAILY, (Reported) Discontinued Reason: Pt stopped taking med Rye-3 Fatty Acids (Rye-3), 100 MG PO, (Reported) Discontinued Reason: Pt stopped taking med Prednisone (Prednisone), 5 MG ORAL DAILY Discontinued Reason: Pt stopped taking med Prednisone* (Prednisone*), 10 MG ORAL DAILY, (Reported) Discontinued Reason: Pt stopped taking med Objective Data Height (Feet): 5 Height (Inches): 1.00 Weight (Pounds): 120 Appearance: well groomed Behavior Mannerisms: poor eye contact Affect: constricted Mood: euthymic Speech: dysarthric Thought Process: logical Thought Content: delusions of grandiosity Perceptual Disturbances: auditory Suicidal Ideation: no plan Assessment/Plan Assessment/Plan: Patient appears to be still confused disorganized at times still does not understand the severity of her medical illness will continue to help her with anxiety to reduce agitation and anxiety Linda Jack MD Jul 22, 2020 07:36
--- NOTE | 2020-07-22 07:36 | NUR ---
NURSE HAND-OFF: Important Events on Shift: 2 UNITS PRBC TRANSFUSED Patient Status: STABLE Diet: CCHO MED Pending Orders: N.A Pending Results/Labs: CBC,CMP Pending MD notification: N/A Latest Vital Signs: Temperature 98.1 , Pulse 89 , B/P 152 /78 , Respiratory Rate 20 , O2 SAT 99 , Room Air, O2 Flow Rate . Vital Sign Comment: STABLE Latest English Fall Score: 55 Fall Risk: High Risk Safety Measures: Call light Within Reach, Bed Alarm Zone 1, Side Rails Side Rails x2, Bed position Low and Locked. Fall Precautions: Yellow Socks Yellow Gown Door Sign Patient Fall Education Report given to ARTURO JACOB.
[2020-07-22 08:00] VITALS: BP 137/71
[2020-07-22] MEDS: Thiamine 100mg tab ORAL SCH (08:53)
[2020-07-22] MEDS: Nephrovite tab (Rena-Vite) ORAL SCH (08:53)
[2020-07-22] MEDS: Docusate 100mg cap ORAL SCH ×3 (08:53→17:33)
[2020-07-22] MEDS: Memantine 5 MG TAB ORAL SCH ×2 (08:53→17:33)
[2020-07-22 09:24] LABS: HEMATOCRIT 27.8 % (37.0-47.0); HEMOGLOBIN 9.5 G/DL (12.0-16.0); MEAN CORPUSCULAR VOLUME 88 FL (80-99); PLATELET COUNT 90 K/UL (150-450); RED BLOOD COUNT 3.15 M/UL (4.20-5.40); RED CELL DISTRIBUTION WIDTH 13.3 % (11.6-14.8)
[2020-07-22 09:33] LABS: CALCIUM 8.2 MG/DL (8.5-10.1); CREATININE 4.9 MG/DL (0.55-1.30); POTASSIUM 3.3 MMOL/L (3.5-5.1)
[2020-07-22 09:48] LABS: ALANINE AMINOTRANSFERASE 26 U/L (12-78); ALBUMIN 2.6 G/DL (3.4-5.0); ALKALINE PHOSPHATASE 39 U/L (46-116); ASPARTATE AMINO TRANSFERASE 34 U/L (15-37); BILIRUBIN,DIRECT 0.3 MG/DL (0.0-0.3); BILIRUBIN,TOTAL 1.1 MG/DL (0.2-1.0); PHOSPHORUS 2.9 MG/DL (2.5-4.9)
--- NOTE | 2020-07-22 10:48 | Nephrology Progress Note ---
Assessment/Plan Problem List: (1) Renal failure (ARF), acute on chronic (2) Acute renal failure (3) Anemia in chronic kidney disease (CKD) (4) FTT (failure to thrive) in adult (5) DM (diabetes mellitus) Assessment Renal failure most likely acute on chronic Anemia, most likely anemia of chronic disease History of diabetes, Plan July 22: Patient transfused 2 units of packed RBCs. Hemoglobin higher. Blood pressure medication adjusted. IV fluid discontinued. Nails catheter discontinued. Potassium supplement given. GFR 10. Continue to monitor renal parameters and electrolytes. Will discuss again the need for dialysis treatment. Physical therapy treatment ordered. Previously: 2D echocardiogram monitor results noted Kidney ultrasound, results noted Nails catheter Urine studies Avoid nephrotoxic's Anemia work-up Subcu Epogen IV iron Transfusion, patient refused transfusion. She does not believe that the type and crossmatch at the [facility] matches her blood group and type Per orders Kidney ultrasound results: SMALL LEFT KIDNEY. BOTH KIDNEYS APPEAR ECHOGENIC LIKELY REFLECTING MEDICAL RENAL DISEASE. NO OBSTRUCTIVE UROPATHY. 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 2D echocardiogram results: Normal left ventricular chamber size, systolic function and wall motion. Left ventricular ejection fraction estimated to be 65-70%. Mild left ventricular hypertrophy by 2-D. Subjective ROS Limited/Unobtainable: No Constitutional: Reports: malaise Objective Objective Last 24 Hour Vital Signs Date Time Temp Pulse Resp B/P (MAP) Pulse Ox O2 Delivery O2 Flow Rate FiO2 07/22/20 08:00 97.9 92 19 137/71 (93) 98 07/22/20 04:00 98.1 89 20 152/78 (102) 99 07/22/20 00:00 99.0 89 18 141/66 (91) 100 07/21/20 21:00 Room Air Room Air 07/21/20 20:00 97.5 91 18 128/63 (84) 99 07/21/20 16:09 98.8 75 17 103/54 (70) 98 07/21/20 12:11 98.5 76 18 110/59 (76) 98 Intake and Output 07/21/20 07/22/20 19:00 07:00 Intake Total 1310 ml Output Total 1600 ml Balance 1310 ml -1600 ml IV Total 750 ml Other 560 ml Output Urine Total 1600 ml # Bowel Movements 1 Laboratory Tests 07/22/20 08:30: White Blood Count 10.0, Red Blood Count 3.15L, Hemoglobin 9.5#L, Hematocrit 27.8#L, Mean Corpuscular Volume 88, Mean Corpuscular Hemoglobin 30.2, Mean Corpuscular Hemoglobin Concent 34.2, Red Cell Distribution Width 13.3, Platelet Count 90L, Mean Platelet Volume 6.4L, Neutrophils (%) (Auto) , Lymphocytes (%) (Auto) , Monocytes (%) (Auto) , Eosinophils (%) (Auto) , Basophils (%) (Auto) , Differential Total Cells Counted 100, Neutrophils % (Manual) 67, Lymphocytes % (Manual) 27, Monocytes % (Manual) 5, Eosinophils % (Manual) 0, Basophils % (Manual) 1, Band Neutrophils 0, Platelet Estimate DecreasedL, Platelet Morphology Normal, Hypochromasia 1+, Uric Acid 7.9H, Phosphorus Level 2.9, Total Bilirubin 1.1H, Direct Bilirubin 0.3, Aspartate Amino Transf (AST/SGOT) 34, Alanine Aminotransferase (ALT/SGPT) 26, Alkaline Phosphatase 39L, Total Protein 6.2L, Albumin 2.6L 07/22/20 08:45: Sodium Level 136, Potassium Level 3.3L, Chloride Level 101, Carbon Dioxide Level 18L, Anion Gap 17H, Blood Urea Nitrogen 60H, Creatinine 4.9H, Estimat Glomerular Filtration Rate 10.7, Glucose Level 244#H, Calcium Level 8.2L Height (Feet): 5 Height (Inches): 1.00 Weight (Pounds): 120 General Appearance: no apparent distress, other - Feels stronger Cardiovascular: normal rate Respiratory/Chest: decreased breath sounds Abdomen: soft Almas Champion MD Jul 22, 2020 10:48
--- NOTE | 2020-07-22 11:02 | General Progress Note ---
Subjective Constitutional: Reports: weakness Allergies: Coded Allergies: PENICILLINS (Verified Allergy, Severe, Rash, 12/23/13) PENICILLIN G (Unverified Allergy, Unknown, 11/17/18) All Systems: reviewed and negative except above Subjective sleepy in bed Objective Last 24 Hour Vital Signs Date Time Temp Pulse Resp B/P (MAP) Pulse Ox O2 Delivery O2 Flow Rate FiO2 07/22/20 08:00 97.9 92 19 137/71 (93) 98 07/22/20 04:00 98.1 89 20 152/78 (102) 99 07/22/20 00:00 99.0 89 18 141/66 (91) 100 07/21/20 21:00 Room Air Room Air 07/21/20 20:00 97.5 91 18 128/63 (84) 99 07/21/20 16:09 98.8 75 17 103/54 (70) 98 07/21/20 12:11 98.5 76 18 110/59 (76) 98 Intake and Output 07/21/20 07/22/20 19:00 07:00 Intake Total 1310 ml Output Total 1600 ml Balance 1310 ml -1600 ml IV Total 750 ml Other 560 ml Output Urine Total 1600 ml # Bowel Movements 1 Laboratory Tests 07/22/20 08:30: White Blood Count 10.0, Red Blood Count 3.15L, Hemoglobin 9.5#L, Hematocrit 27.8#L, Mean Corpuscular Volume 88, Mean Corpuscular Hemoglobin 30.2, Mean Corpuscular Hemoglobin Concent 34.2, Red Cell Distribution Width 13.3, Platelet Count 90L, Mean Platelet Volume 6.4L, Neutrophils (%) (Auto) , Lymphocytes (%) (Auto) , Monocytes (%) (Auto) , Eosinophils (%) (Auto) , Basophils (%) (Auto) , Differential Total Cells Counted 100, Neutrophils % (Manual) 67, Lymphocytes % (Manual) 27, Monocytes % (Manual) 5, Eosinophils % (Manual) 0, Basophils % (Manual) 1, Band Neutrophils 0, Platelet Estimate DecreasedL, Platelet Morphology Normal, Hypochromasia 1+, Uric Acid 7.9H, Phosphorus Level 2.9, Total Bilirubin 1.1H, Direct Bilirubin 0.3, Aspartate Amino Transf (AST/SGOT) 34, Alanine Aminotransferase (ALT/SGPT) 26, Alkaline Phosphatase 39L, Total Protein 6.2L, Albumin 2.6L 07/22/20 08:45: Sodium Level 136, Potassium Level 3.3L, Chloride Level 101, Carbon Dioxide Level 18L, Anion Gap 17H, Blood Urea Nitrogen 60H, Creatinine 4.9H, Estimat Glomerular Filtration Rate 10.7, Glucose Level 244#H, Calcium Level 8.2L Height (Feet): 5 Height (Inches): 1.00 Weight (Pounds): 120 General Appearance: lethargic EENT: normal ENT inspection Neck: normal alignment Cardiovascular: normal peripheral pulses, normal rate, regular rhythm Respiratory/Chest: chest wall non-tender, lungs clear, normal breath sounds Abdomen: normal bowel sounds, non tender, soft Extremities: normal inspection Edema: no edema noted Arm (L), no edema noted Arm (R), no edema noted Leg (L), no edema noted Leg (R), no edema noted Pedal (L), no edema noted Pedal (R), no edema noted Generalized Neurologic: motor weakness Skin: normal pigmentation, warm/dry Assessment/Plan Problem List: (1) Weakness ICD Codes: R53.1 - Weakness SNOMED: 82643562 (2) DM (diabetes mellitus) ICD Codes: E11.9 - Type 2 diabetes mellitus without complications SNOMED: 60660102 (3) Anemia ICD Codes: D64.9 - Anemia, unspecified SNOMED: 708568615 Qualifiers: Qualified Codes: D64.9 - Anemia, unspecified (4) Acute renal failure ICD Codes: N17.9 - Acute kidney failure, unspecified SNOMED: 78530337 Qualifiers: Qualified Codes: N17.9 - Acute kidney failure, unspecified (5) FTT (failure to thrive) in adult ICD Codes: R62.7 - Adult failure to thrive SNOMED: 441303601 Status: stable, progressing Assessment/Plan: pt diet gi f/u transfuse prn cbc bmp am dc plan w Danyel Cobian DO Jul 22, 2020 11:02
[2020-07-22 12:00] VITALS: BP 143/83
--- NOTE | 2020-07-22 12:11 | NUR ---
DISCHARGE PLANNING PATIENT HAS BEEN REFERRED TO [facility] P: [phone] EMAIL: [email or web address]
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
--- NOTE | 2020-07-22 13:38 | NUR ---
CASE MANAGEMENT:REVIEW SI;ACUTE RENAL FAILURE. FTT. DM. 99.0 92 20 152/78 98% ON RA K+ 3.3 BUN 60 CR 4.9 BG 244 IS;BICITRA PO TID REGLAN PO TID K-DUR PO ONCE IRON SUCROSE IV QD THIAMINE PO QD EPOETIN DEAN SUBQ M-W-F SYNTHROID PO QD PROTONIX PO Q12 INSULIN NOVOLOG SUBQ TID TRANSFUSED 2 UNITS PRBC (07/21/20) MED SURG STATUS DCP;FROM HOME PLAN; DC PLAN HOME WITH [facility]
--- NOTE | 2020-07-22 13:50 | NUR ---
PT EVALUATION NOTE Patient seen for initial evaluation and treatment initiated. Patient presents with generalized weakness and impaired ability to perform mobility tasks safely. Patient requires mod assist to come to sitting at EOB. Sitting balance is fair with tendency of patient to lean backwards and requiring intermittent assistance to maintain sitting balance. Patient with limited sitting tolerance, c/o fatigue and declined OOB activities. Patient will benefit from skilled inpatient PT intervention to increase strength and postural stability for improved level of functional mobility. Recommend discharge to SNF for continued rehab once medically cleared by MD. Patient lives alone in a second floor apartment without elevator access. Patient may benefit from use of a FWW for household ambulation vs crutches. Addendum: 07/22/20 at 1435 by DESTINY HEARD PT Amended: Links added.
[2020-07-22 16:00] VITALS: BP 139/75
--- NOTE | 2020-07-22 16:16 | NUR ---
*-*DISCHARGE PLANNING*-* PATIENT HAS BEEN REFERRED TO: [facility] P: [phone] [facility] P: [phone] [facility] P: [phone]
--- NOTE | 2020-07-22 16:33 | NUR ---
*-*DISCHARGE PLANNING*-* PATIENT HAS BEEN REFERRED TO: [facility] P: [phone] FOR NURSE TO NURSE REPORT ROOM# 214. [facility] SET FOR WILL CALL S/W ROOSEVELT [id number]
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
--- NOTE | 2020-07-22 16:45 | NUR ---
TACTICAL AIR CONTROL PARTY MANAGER NOTE S/W PATIENT AT BEDSIDE IN RE TO RECOMMENDATION FOR SNF PLACEMENT. PATIENT UNSURE OF PLACEMENT AT THIS TIME AND WANTS TO WAIT FOR HER DAUGHTER TO DISCUSS SNF. PATIENT REQUESTED THAT THIS CM CALL HER BROTHER ESEQUIEL @ [phone]. S/W ESEQUIEL AND INFORMED OF SNF ORDER. PER ESEQUIEL, HE WILL CONTACT PATIENTS DAUGHTER AND HAVE HER CALL [facility] TO SPEAK WITH THIS CM RN ENDOSCOPY. CALL BACK RECEIVED FROM PATIENTS DAUGHTER AMANADYRESTUARDO AND INFORMED OF SNF ORDER. PATIENTS DAUGHTER IN AGREEMENT.DAUGHTER ALSO PROVIDED CONTACT # [phone].
--- NOTE | 2020-07-22 17:16 | NUR ---
CHANGE MANAGEMENT LEAD NOTE DR LITTLE INFORMED PATIENT ACCEPTED TO [facility] CRDonn BURGESS
--- NOTE | 2020-07-22 18:33 | NUR ---
NURSE HAND-OFF: Important Events on Shift: Pt seen by PT today and recommended for SNF placement d/t only able to sit on EOB. Dockery catheter DC'd during shift. Attempted to have BM today but was unsuccessful. K repleted, josefina BS 187 Patient Status: stable Diet: CCHO Med Pending Orders: n/a Pending Results/Labs: labs in AM tomorrow Pending MD notification: n/a Latest Vital Signs: Temperature 97.4 , Pulse 81 , B/P 139 /75 , Respiratory Rate 18 , O2 SAT 97 , Room Air, O2 Flow Rate . Vital Sign Comment: stable, continue to monitor Latest English Fall Score: 55 Fall Risk: High Risk Safety Measures: Call light Within Reach, Bed Alarm Zone 1, Side Rails Side Rails x2, Bed position Low and Locked. Fall Precautions: Yellow Socks Yellow Gown Door Sign Patient Fall Education.
--- NOTE | 2020-07-22 19:25 | NUR ---
HAND-OFF: Report given to ARTURO Magana. Endorsed POC.
[2020-07-22 20:00] VITALS: BP 152/84
[2020-07-22] MEDS: Iron Sucrose 100 MG in NS 55 ML IV SCH (20:56)
[2020-07-22] MEDS: Epoetin Alfa-EPBX (NON ESRD)10,000 unit/ml vial SUBQ SCH (20:56)
[2020-07-22] MEDS: Erythromycin Opth Ointment 1gm RIGHT EYE SCH (20:58)
[2020-07-23] VITALS (7 sets, daily range): BP systolic 134–154; BP diastolic 69–86
[2020-07-23 05:35] LABS: HEMATOCRIT 27.8 % (37.0-47.0); HEMOGLOBIN 9.6 G/DL (12.0-16.0); MEAN CORPUSCULAR VOLUME 87 FL (80-99); PLATELET COUNT 84 K/UL (150-450); RED BLOOD COUNT 3.17 M/UL (4.20-5.40); RED CELL DISTRIBUTION WIDTH 13.4 % (11.6-14.8); WHITE BLOOD COUNT 9.4 K/UL (4.8-10.8)
[2020-07-23] MEDS: Insulin NovoLOG Flexpen S/S (insulin sensitive) SUBQ SCH ×3 (05:50→17:09)
[2020-07-23 06:13] LABS: ALBUMIN 2.6 G/DL (3.4-5.0); ALBUMIN/GLOBULIN RATIO 0.7 (1.0-2.7); BILIRUBIN,TOTAL 0.5 MG/DL (0.2-1.0); CALCIUM 8.4 MG/DL (8.5-10.1); CREATININE 4.9 MG/DL (0.55-1.30); PHOSPHORUS 3.3 MG/DL (2.5-4.9); POTASSIUM 3.6 MMOL/L (3.5-5.1)
--- NOTE | 2020-07-23 07:30 | NUR ---
RD ASSESSMENT & RECOMMENDATIONS SEE CARE ACTIVITY FOR COMPLETE ASSESSMENT DAILY ESTIMATED NEEDS: Needs based on ARF without HD, 52kg 25-35 kcals/kg 9715-4385 total kcals 0.6-1.0 g protein/kg 30-52 (increase w/ renal improvement) g total protein 25-30 mL/kg 9177-2812 total fluid mLs NUTRITION DIAGNOSIS: Altered nutition related lab values r/t clinical status, DM as evidenced by Hgb 6.7->9.6, elev Na 149 -> wnl, elev BUN 69->63, elev Creat 5.0->4.9, elev BGs (133, 244, 143). 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
--- NOTE | 2020-07-23 07:43 | NUR ---
NURSE HAND-OFF: Important Events on Shift: STABLE Patient Status: STABLE Diet: RENAL Pending Orders: N/A Pending Results/Labs: [facility] Pending MD notification:N/A Latest Vital Signs: Temperature 98.6 , Pulse 91 , B/P 154 /86 , Respiratory Rate 18 , O2 SAT 97 , Room Air, O2 Flow Rate . Vital Sign Comment: STABLE Latest English Fall Score: 55 Fall Risk: High Risk Safety Measures: Call light Within Reach, Bed Alarm Zone 1, Side Rails Side Rails x2, Bed position Low and Locked. Fall Precautions: Yellow Socks Yellow Gown Door Sign Patient Fall Education Report given to ARTURO MILIAN.
--- NOTE | 2020-07-23 08:00 | NUR ---
NURSE NOTES: Patient is awake and alert and oriented,respirations unlabored. Patient sitting up up in bed and eating breakfast.patient state she is feeling better.Bed alarm is on,call light within reach.
[2020-07-23] MEDS: Erythromycin Opth Ointment 1gm RIGHT EYE SCH ×4 (08:51→21:41)
[2020-07-23] MEDS: Thiamine 100mg tab ORAL SCH (08:51)
[2020-07-23] MEDS: Nephrovite tab (Rena-Vite) ORAL SCH (08:51)
[2020-07-23] MEDS: Memantine 5 MG TAB ORAL SCH ×2 (08:52→18:53)
[2020-07-23] MEDS: Lacri-Lube Opth Oint 3.5gm BOTH EYES SCH ×3 (08:52→19:00)
[2020-07-23] MEDS: Docusate 100mg cap ORAL SCH ×3 (08:52→18:53)
[2020-07-23] MEDS: Sodium Citrate 30ml ORAL SCH ×3 (08:55→18:53)
--- NOTE | 2020-07-23 09:50 | General Progress Note ---
Subjective Constitutional: Reports: weakness Allergies: Coded Allergies: PENICILLINS (Verified Allergy, Severe, Rash, 12/23/13) PENICILLIN G (Unverified Allergy, Unknown, 11/17/18) All Systems: reviewed and negative except above Subjective sleepy in bed Objective Last 24 Hour Vital Signs Date Time Temp Pulse Resp B/P (MAP) Pulse Ox O2 Delivery O2 Flow Rate FiO2 07/23/20 04:00 98.6 91 18 154/86 (108) 97 07/23/20 00:00 98.1 89 18 151/78 (102) 98 07/22/20 21:00 Room Air Room Air 07/22/20 20:00 98.7 90 18 152/84 (106) 99 07/22/20 16:00 97.4 81 18 139/75 (96) 97 07/22/20 12:00 98.6 88 17 143/83 (103) 98 Intake and Output 07/22/20 07/23/20 19:00 07:00 Intake Total 240 ml Output Total 950 ml Balance -710 ml IV Total 240 ml Output Urine Total 950 ml # Voids 2 # Bowel Movements 3 Laboratory Tests 07/23/20 04:30: White Blood Count 9.4, Red Blood Count 3.17L, Hemoglobin 9.6L, Hematocrit 27.8L, Mean Corpuscular Volume 87, Mean Corpuscular Hemoglobin 30.4, Mean Corpuscular Hemoglobin Concent 34.8, Red Cell Distribution Width 13.4, Platelet Count 84L, Mean Platelet Volume 5.9L, Neutrophils (%) (Auto) , Lymphocytes (%) (Auto) , Monocytes (%) (Auto) , Eosinophils (%) (Auto) , Basophils (%) (Auto) , Neutrophils % (Manual) [Pending], Lymphocytes % (Manual) [Pending], Platelet Estimate [Pending], Platelet Morphology [Pending], Sodium Level 138, Potassium Level 3.6, Chloride Level 102, Carbon Dioxide Level 21, Anion Gap 15, Blood Urea Nitrogen 63H, Creatinine 4.9H, Estimat Glomerular Filtration Rate 10.7, Glucose Level 133#H, Uric Acid 6.9, Calcium Level 8.4L, Phosphorus Level 3.3, Magnesium Level 1.8, Total Bilirubin 0.5, Aspartate Amino Transf (AST/SGOT) 40H, Alanine Aminotransferase (ALT/SGPT) 29, Alkaline Phosphatase 38L, C-Reactive Protein, Quantitative 0.8, Pro-B-Type Natriuretic Peptide 1097H, Total Protein 6.4, Albumin 2.6L, Globulin 3.8, Albumin/Globulin Ratio 0.7L Height (Feet): 5 Height (Inches): 1.00 Weight (Pounds): 120 General Appearance: lethargic EENT: normal ENT inspection Neck: normal alignment Cardiovascular: normal peripheral pulses, normal rate, regular rhythm Respiratory/Chest: chest wall non-tender, lungs clear, normal breath sounds Abdomen: normal bowel sounds, non tender, soft Extremities: normal inspection Edema: no edema noted Arm (L), no edema noted Arm (R), no edema noted Leg (L), no edema noted Leg (R), no edema noted Pedal (L), no edema noted Pedal (R), no edema noted Generalized Neurologic: motor weakness Skin: normal pigmentation, warm/dry Assessment/Plan Problem List: (1) Weakness ICD Codes: R53.1 - Weakness SNOMED: 95509416 (2) DM (diabetes mellitus) ICD Codes: E11.9 - Type 2 diabetes mellitus without complications SNOMED: 86493131 (3) Anemia ICD Codes: D64.9 - Anemia, unspecified SNOMED: 076822756 Qualifiers: Qualified Codes: D64.9 - Anemia, unspecified (4) Acute renal failure ICD Codes: N17.9 - Acute kidney failure, unspecified SNOMED: 99384296 Qualifiers: Qualified Codes: N17.9 - Acute kidney failure, unspecified (5) FTT (failure to thrive) in adult ICD Codes: R62.7 - Adult failure to thrive SNOMED: 801803549 Status: stable, progressing Assessment/Plan: pt diet gi f/u transfuse prn cbc bmp am dc plan w Danyel Cobian DO Jul 23, 2020 09:50
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
--- NOTE | 2020-07-23 12:33 | Initial Psychiatric Evaluation ---
Psychiatry Consultation Psychiatry Consultation Chief Complaint: Generalized Weakness History of Present Illness: 70-year-old female patient she has altered mental status confusion generalized weakness and failure to thrive she has a declining cognition below her baseline secondary to the stress of her medical illnesses why her attending has requested daily psychiatric consultation she was seen and assessed at bedside still confused disorganized and poor insight into her medical and psychiatric condition Mental status examination: This is a 70-year-old female her appearance is disheveled to irritable agitated affect restricted intellect for mood depressed anxious motor activity psychomotor agitation attention span is poor because she cannot do [facility] backwards orientation x2 person place not time situation speech nonsensical thought processes are illogical thought content Insight and judgment is poor Allergies: Coded Allergies: PENICILLINS (Verified Allergy, Severe, Rash, 12/23/13) PENICILLIN G (Unverified Allergy, Unknown, 11/17/18) Medication History Scheduled Folic Acid* (Folic Acid*), 1 MG ORAL DAILY, (Reported) Levothyroxine Sodium* (Levothyroxine Sodium*), 50 MCG ORAL DAILY, (Reported) Metformin Hcl* (Metformin Hcl*), 500 MG ORAL TWICE A DAY Multivitamins* (Multivitamins*), 1 TAB ORAL DAILY, (Reported) Omeprazole (Omeprazole), 20 MG ORAL BID, (Reported) Scheduled PRN Tramadol Hcl* (Ultram*), 50 MG ORAL Q6H PRN for For Pain Discontinued Medications Alendronate Sodium* (Fosamax*), 70 MG ORAL ONCE A WEEK, (Reported) Discontinued Reason: Pt stopped taking med Insulin Detemir (Levemir Flexpen), 18 UNITS SUBQ BEDTIME Discontinued Reason: Pt stopped taking med Insulin Glargine (Lantus), 10 SUBQ BEFORE MEALS AND HS, (Reported) Discontinued Reason: Pt stopped taking med Insulin Glargine (Lantus), 10 SUBQ BEDTIME, (Reported) Discontinued Reason: Pt stopped taking med Insulin Glargine (Lantus), 0 SUBQ BEDTIME, (Reported) Discontinued Reason: Pt stopped taking med Levofloxacin* (Levaquin*), 750 MG ORAL DAILY, (Reported) Discontinued Reason: Pt stopped taking med [place]-3 Fatty Acids ([place]-3), 100 MG PO, (Reported) Discontinued Reason: Pt stopped taking med Prednisone (Prednisone), 5 MG ORAL DAILY Discontinued Reason: Pt stopped taking med Prednisone* (Prednisone*), 10 MG ORAL DAILY, (Reported) Discontinued Reason: Pt stopped taking med Objective Data Height (Feet): 5 Height (Inches): 1.00 Weight (Pounds): 120 Assessment/Plan Assessment/Plan: Patient appears to be still confused disorganized at times still does not understand the severity of her medical illness will continue to help her with anxiety to reduce agitation and anxiety Linda Jack MD Jul 23, 2020 12:33
--- NOTE | 2020-07-23 13:28 | Hematology/Onc Progress Note ---
Assessment/Plan Assessment/Plan Assessment and Recs # Anemia due to iron deficiency v gi bleed v chronic disease --> anemia panel has been reviewed --> hgb goal >7 --> has been started on epogen and iron --> hgb trennd 7.1-->6.7-->9.6 --> r/o hemolysis --> stool ob++ --> blood transfusions: 2 units 07/21, # Thrombocytopenia rule out underlying infection, consumptive process, does have hepatitis C --> plt trend 131-->106 --> hiv negative, hep C++ --> us abd as needed --> baseline of 90--120 is noted --> if bleeding, consider plt transfusion # Coagulopathy likely related to chronic hep c --> rx underlying hep c once discharged # Acute renal failure --> as per renal --> workup as needed --> hd prn # Abd pain, genearlized weakness --> per gi care # Dvt ppx scds Appreciate consultation and dw Rn Subjective Allergies: Coded Allergies: PENICILLINS (Verified Allergy, Severe, Rash, 12/23/13) PENICILLIN G (Unverified Allergy, Unknown, 11/17/18) Subjective 07/23 s/p 2 units, hgb 9.6, hiv negative, iv iron, no distress Objective Objective Current Medications Medications (Trade) Dose Ordered Sig/Irma Route PRN Reason Start Time Stop Time Status Last Admin Dose Admin Allopurinol (allopurinoL) 300 mg DAILY ORAL 07/20/20 10:00 08/19/20 09:59 07/23/20 08:51 Artificial Tears (Lacri-Lube) 1 applic BID BOTH EYES 07/23/20 09:00 08/22/20 08:59 07/23/20 10:14 Dextrose (Dextrose 50%) 25 ml Q30M PRN IV Hypoglycemia 07/19/20 22:00 08/18/20 21:56 Dextrose (Dextrose 50%) 50 ml Q30M PRN IV hypoglycemia 07/19/20 22:00 08/18/20 21:59 Docusate Sodium (Colace) 100 mg THREE TIMES A DAY ORAL 07/20/20 09:00 08/19/20 08:59 07/23/20 13:12 Epoetin Jose (Epoetin Jose-EPBX(NON ESRD)) 10,000 unit SAT-SAT-SAT SUBQ 07/20/20 21:00 10/18/20 20:59 07/22/20 20:56 Erythromycin (Ilotycin) 1 applic FOUR TIMES A DAY RIGHT EYE 07/22/20 21:00 07/29/20 20:59 07/23/20 13:12 Hydralazine HCl (Apresoline) 25 mg Q4H PRN ORAL bp over 160 syst 07/19/20 19:00 10/17/20 18:59 Insulin Aspart (NovoLOG) No Dose BEFORE MEALS SUBQ 07/19/20 23:00 10/17/20 22:59 07/23/20 12:11 Iron Sucrose 100 mg/Sodium Chloride 60 ml @ 240 mls/hr BEDTIME IV 07/21/20 21:00 07/25/20 21:14 07/22/20 20:56 Levothyroxine Sodium (Synthroid) 50 mcg ACBREAKFAST ORAL 07/20/20 06:30 08/19/20 06:29 07/23/20 05:50 Lorazepam (Ativan) 1 mg Q6H PRN ORAL For Anxiety 07/21/20 15:15 07/28/20 15:14 Memantine (Namenda) 5 mg BID ORAL 07/21/20 18:00 08/20/20 17:59 07/23/20 08:52 Metoclopramide HCl (Reglan) 5 mg BEFORE MEALS ORAL 07/22/20 11:30 08/21/20 11:29 07/23/20 12:08 Metoclopramide HCl (Reglan) 10 mg Q6H PRN IVP Nausea & Vomiting 07/19/20 19:00 08/18/20 18:59 Pantoprazole (Protonix) 40 mg EVERY 12 HOURS ORAL 07/19/20 21:00 08/18/20 20:59 07/23/20 08:52 Sodium Citrate (Bicitra) 30 ml TID ORAL 07/22/20 13:00 08/19/20 00:00 07/23/20 13:12 Thiamine HCl (Vitamin B1) 100 mg DAILY ORAL 07/21/20 09:00 08/20/20 08:59 07/23/20 08:51 Vitamin B Complex/ Vit C/Folic Acid (Nephrovite) 1 tab DAILY ORAL 07/21/20 09:00 08/20/20 08:59 07/23/20 08:51 Last 24 Hour Vital Signs Date Time Temp Pulse Resp B/P (MAP) Pulse Ox O2 Delivery O2 Flow Rate FiO2 07/23/20 12:16 98.4 88 18 134/69 (90) 98 07/23/20 09:00 Room Air Room Air 07/23/20 08:00 98.6 91 18 134/70 (91) 98 07/23/20 04:00 98.6 91 18 154/86 (108) 97 07/23/20 00:00 98.1 89 18 151/78 (102) 98 07/22/20 21:00 Room Air Room Air 07/22/20 20:00 98.7 90 18 152/84 (106) 99 07/22/20 16:00 97.4 81 18 139/75 (96) 97 07/22/20 12:00 98.6 88 17 143/83 (103) 98 07/22/20 09:00 Room Air Room Air 07/22/20 08:00 97.9 92 19 137/71 (93) 98 07/22/20 04:00 98.1 89 20 152/78 (102) 99 07/22/20 00:00 99.0 89 18 141/66 (91) 100 07/21/20 21:00 Room Air Room Air 07/21/20 20:00 97.5 91 18 128/63 (84) 99 07/21/20 16:09 98.8 75 17 103/54 (70) 98 Intake and Output 07/22/20 07/23/20 19:00 07:00 Intake Total 240 ml Output Total 950 ml Balance -710 ml IV Total 240 ml Output Urine Total 950 ml # Voids 2 # Bowel Movements 3 Labs Test 07/20/20 23:00 07/21/20 04:00 07/21/20 05:33 07/21/20 05:50 Stool Occult Blood Positive (NEGATIVE) Urine Eosinophils None seen (NONE SEEN) POC Whole Blood Glucose 145 MG/DL (74-106) White Blood Count 9.1 K/UL (4.8-10.8) Red Blood Count 2.01 M/UL (4.20-5.40) Hemoglobin 6.2 G/DL (12.0-16.0) Hematocrit 18.3 % (37.0-47.0) Mean Corpuscular Volume 91 FL (80-99) Mean Corpuscular Hemoglobin 30.7 PG (27.0-31.0) Mean Corpuscular Hemoglobin Concent 33.6 G/DL (32.0-36.0) Red Cell Distribution Width 12.5 % (11.6-14.8) Platelet Count 87 K/UL (150-450) Mean Platelet Volume 5.4 FL (6.5-10.1) Neutrophils (%) (Auto) % (45.0-75.0) Lymphocytes (%) (Auto) % (20.0-45.0) Monocytes (%) (Auto) % (1.0-10.0) Eosinophils (%) (Auto) % (0.0-3.0) Basophils (%) (Auto) % (0.0-2.0) Differential Total Cells Counted 100 Neutrophils % (Manual) 56 % (45-75) Lymphocytes % (Manual) 37 % (20-45) Monocytes % (Manual) 7 % (1-10) Eosinophils % (Manual) 0 % (0-3) Basophils % (Manual) 0 % (0-2) Band Neutrophils 0 % (0-8) Platelet Estimate Decreased Platelet Morphology Normal Hypochromasia 4+ Anisocytosis 1+ Spherocytes 2+ Sodium Level 138 MMOL/L (136-145) Potassium Level 3.8 MMOL/L (3.5-5.1) Chloride Level 106 MMOL/L (98-107) Carbon Dioxide Level 18 MMOL/L (21-32) Anion Gap 14 mmol/L (5-15) Blood Urea Nitrogen 60 mg/dL (7-18) Creatinine 4.9 MG/DL (0.55-1.30) Estimat Glomerular Filtration Rate 10.7 mL/min (>60) Glucose Level 143 MG/DL (74-106) Calcium Level 8.2 MG/DL (8.5-10.1) Test 07/22/20 08:30 07/22/20 08:45 07/23/20 04:30 White Blood Count 10.0 K/UL (4.8-10.8) 9.4 K/UL (4.8-10.8) Red Blood Count 3.15 M/UL (4.20-5.40) 3.17 M/UL (4.20-5.40) Hemoglobin 9.5 G/DL (12.0-16.0) 9.6 G/DL (12.0-16.0) Hematocrit 27.8 % (37.0-47.0) 27.8 % (37.0-47.0) Mean Corpuscular Volume 88 FL (80-99) 87 FL (80-99) Mean Corpuscular Hemoglobin 30.2 PG (27.0-31.0) 30.4 PG (27.0-31.0) Mean Corpuscular Hemoglobin Concent 34.2 G/DL (32.0-36.0) 34.8 G/DL (32.0-36.0) Red Cell Distribution Width 13.3 % (11.6-14.8) 13.4 % (11.6-14.8) Platelet Count 90 K/UL (150-450) 84 K/UL (150-450) Mean Platelet Volume 6.4 FL (6.5-10.1) 5.9 FL (6.5-10.1) Neutrophils (%) (Auto) % (45.0-75.0) % (45.0-75.0) Lymphocytes (%) (Auto) % (20.0-45.0) % (20.0-45.0) Monocytes (%) (Auto) % (1.0-10.0) % (1.0-10.0) Eosinophils (%) (Auto) % (0.0-3.0) % (0.0-3.0) Basophils (%) (Auto) % (0.0-2.0) % (0.0-2.0) Differential Total Cells Counted 100 100 Neutrophils % (Manual) 67 % (45-75) 74 % (45-75) Lymphocytes % (Manual) 27 % (20-45) 17 % (20-45) Monocytes % (Manual) 5 % (1-10) 8 % (1-10) Eosinophils % (Manual) 0 % (0-3) 1 % (0-3) Basophils % (Manual) 1 % (0-2) 0 % (0-2) Band Neutrophils 0 % (0-8) 0 % (0-8) Platelet Estimate Decreased Decreased Platelet Morphology Normal Normal Hypochromasia 1+ Uric Acid 7.9 MG/DL (2.6-7.2) 6.9 MG/DL (2.6-7.2) Phosphorus Level 2.9 MG/DL (2.5-4.9) 3.3 MG/DL (2.5-4.9) Total Bilirubin 1.1 MG/DL (0.2-1.0) 0.5 MG/DL (0.2-1.0) Direct Bilirubin 0.3 MG/DL (0.0-0.3) Aspartate Amino Transf (AST/SGOT) 34 U/L (15-37) 40 U/L (15-37) Alanine Aminotransferase (ALT/SGPT) 26 U/L (12-78) 29 U/L (12-78) Alkaline Phosphatase 39 U/L (46-116) 38 U/L (46-116) Total Protein 6.2 G/DL (6.4-8.2) 6.4 G/DL (6.4-8.2) Albumin 2.6 G/DL (3.4-5.0) 2.6 G/DL (3.4-5.0) Sodium Level 136 MMOL/L (136-145) 138 MMOL/L (136-145) Potassium Level 3.3 MMOL/L (3.5-5.1) 3.6 MMOL/L (3.5-5.1) Chloride Level 101 MMOL/L (98-107) 102 MMOL/L (98-107) Carbon Dioxide Level 18 MMOL/L (21-32) 21 MMOL/L (21-32) Anion Gap 17 mmol/L (5-15) 15 mmol/L (5-15) Blood Urea Nitrogen 60 mg/dL (7-18) 63 mg/dL (7-18) Creatinine 4.9 MG/DL (0.55-1.30) 4.9 MG/DL (0.55-1.30) Estimat Glomerular Filtration Rate 10.7 mL/min (>60) 10.7 mL/min (>60) Glucose Level 244 MG/DL (74-106) 133 MG/DL (74-106) Calcium Level 8.2 MG/DL (8.5-10.1) 8.4 MG/DL (8.5-10.1) Red Blood Cell Morphology Normal Magnesium Level 1.8 MG/DL (1.8-2.4) C-Reactive Protein, Quantitative 0.8 mg/dL (0.00-0.90) Pro-B-Type Natriuretic Peptide 1097 pg/mL (0-125) Globulin 3.8 g/dL Albumin/Globulin Ratio 0.7 (1.0-2.7) Height (Feet): 5 Height (Inches): 1.00 Weight (Pounds): 120 Objective PE General: thin, Chronically Ill HEENT: right eye other - Enucleated; left eye Scleral Injection - Green discharge Resp: lungs clear, normal breath sounds Cardiovascular: regular rate, rhythm Gastrointestinal: no guarding, no rebound, tenderness Musculoskeletal: back normal, moves extm spontaneously Neurologic: alert, oriented - X2, sensory intact, motor weakness - Generalized, speech normal Psychiatric: no suicidal/homicidal ideation, depressed affect, anxious Skin: warm/dry Yohan Nunez MD Jul 23, 2020 13:28
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
--- NOTE | 2020-07-23 15:08 | Nephrology Progress Note ---
Assessment/Plan Problem List: (1) Renal failure (ARF), acute on chronic (2) Acute renal failure (3) Anemia in chronic kidney disease (CKD) (4) FTT (failure to thrive) in adult (5) DM (diabetes mellitus) Assessment Renal failure most likely acute on chronic Anemia, most likely anemia of chronic disease History of diabetes, Plan July 23: Clinically stable. Labs reviewed.. Medication list reviewed. Discussed regarding initiation of dialysis. Patient is still indecisive. July 22: Patient transfused 2 units of packed RBCs. Hemoglobin higher. B lood pressure medication adjusted. IV fluid discontinued. Nails catheter discontinued. Potassium supplement given. GFR 10. Continue to monitor renal parameters and electrolytes. Will discuss again the need for dialysis treatment. Physical therapy treatment ordered. Previously: 2D echocardiogram monitor results noted Kidney ultrasound, results noted Nails catheter Urine studies Avoid nephrotoxic's Anemia work-up Subcu Epogen IV iron Transfusion, patient refused transfusion. She does not believe that the type and crossmatch at the [employer] matches her blood group and type Per orders Kidney ultrasound results: SMALL LEFT KIDNEY. BOTH KIDNEYS APPEAR ECHOGENIC LIKELY REFLECTING MEDICAL RENAL DISEASE. NO OBSTRUCTIVE UROPATHY. 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 2D echocardiogram results: Normal left ventricular chamber size, systolic function and wall motion. Left ventricular ejection fraction estimated to be 65-70%. Mild left ventricular hypertrophy by 2-D. Subjective ROS Limited/Unobtainable: No Constitutional: Reports: malaise Objective Objective Last 24 Hour Vital Signs Date Time Temp Pulse Resp B/P (MAP) Pulse Ox O2 Delivery O2 Flow Rate FiO2 07/23/20 12:16 98.4 88 18 134/69 (90) 98 07/23/20 09:00 Room Air Room Air 07/23/20 08:00 98.6 91 18 134/70 (91) 98 07/23/20 04:00 98.6 91 18 154/86 (108) 97 07/23/20 00:00 98.1 89 18 151/78 (102) 98 07/22/20 21:00 Room Air Room Air 07/22/20 20:00 98.7 90 18 152/84 (106) 99 07/22/20 16:00 97.4 81 18 139/75 (96) 97 Intake and Output 07/22/20 07/23/20 19:00 07:00 Intake Total 240 ml Output Total 950 ml Balance -710 ml IV Total 240 ml Output Urine Total 950 ml # Voids 2 # Bowel Movements 3 Current Medications Medications (Trade) Dose Ordered Sig/Irma Route PRN Reason Start Time Stop Time Status Last Admin Dose Admin Allopurinol (allopurinoL) 300 mg DAILY ORAL 07/20/20 10:00 08/19/20 09:59 07/23/20 08:51 Artificial Tears (Lacri-Lube) 1 applic BID BOTH EYES 07/23/20 09:00 08/22/20 08:59 07/23/20 10:14 Dextrose (Dextrose 50%) 25 ml Q30M PRN IV Hypoglycemia 07/19/20 22:00 08/18/20 21:56 Dextrose (Dextrose 50%) 50 ml Q30M PRN IV hypoglycemia 07/19/20 22:00 08/18/20 21:59 Docusate Sodium (Colace) 100 mg THREE TIMES A DAY ORAL 07/20/20 09:00 08/19/20 08:59 07/23/20 13:12 Epoetin Jose (Epoetin Jose-EPBX(NON ESRD)) 10,000 unit MON-SAT-SAT SUBQ 07/20/20 21:00 10/18/20 20:59 07/22/20 20:56 Erythromycin (Ilotycin) 1 applic FOUR TIMES A DAY RIGHT EYE 07/22/20 21:00 07/29/20 20:59 07/23/20 13:12 Hydralazine HCl (Apresoline) 25 mg Q4H PRN ORAL bp over 160 syst 07/19/20 19:00 10/17/20 18:59 Insulin Aspart (NovoLOG) No Dose BEFORE MEALS SUBQ 07/19/20 23:00 10/17/20 22:59 07/23/20 12:11 Iron Sucrose 100 mg/Sodium Chloride 60 ml @ 240 mls/hr BEDTIME IV 07/21/20 21:00 07/25/20 21:14 07/22/20 20:56 Levothyroxine Sodium (Synthroid) 50 mcg ACBREAKFAST ORAL 07/20/20 06:30 08/19/20 06:29 07/23/20 05:50 Lorazepam (Ativan) 1 mg Q6H PRN ORAL For Anxiety 07/21/20 15:15 07/28/20 15:14 Memantine (Namenda) 5 mg BID ORAL 07/21/20 18:00 08/20/20 17:59 07/23/20 08:52 Metoclopramide HCl (Reglan) 5 mg BEFORE MEALS ORAL 07/22/20 11:30 08/21/20 11:29 07/23/20 12:08 Metoclopramide HCl (Reglan) 10 mg Q6H PRN IVP Nausea & Vomiting 07/19/20 19:00 08/18/20 18:59 Pantoprazole (Protonix) 40 mg EVERY 12 HOURS ORAL 07/19/20 21:00 08/18/20 20:59 07/23/20 08:52 Sodium Citrate (Bicitra) 30 ml TID ORAL 07/22/20 13:00 08/19/20 00:00 07/23/20 13:12 Thiamine HCl (Vitamin B1) 100 mg DAILY ORAL 07/21/20 09:00 08/20/20 08:59 07/23/20 08:51 Vitamin B Complex/ Vit C/Folic Acid (Nephrovite) 1 tab DAILY ORAL 07/21/20 09:00 08/20/20 08:59 07/23/20 08:51 Laboratory Tests 07/23/20 04:30: White Blood Count 9.4, Red Blood Count 3.17L, Hemoglobin 9.6L, Hematocrit 27.8L, Mean Corpuscular Volume 87, Mean Corpuscular Hemoglobin 30.4, Mean Corpuscular Hemoglobin Concent 34.8, Red Cell Distribution Width 13.4, Platelet Count 84L, Mean Platelet Volume 5.9L, Neutrophils (%) (Auto) , Lymphocytes (%) (Auto) , Monocytes (%) (Auto) , Eosinophils (%) (Auto) , Basophils (%) (Auto) , Differential Total Cells Counted 100, Neutrophils % (Manual) 74, Lymphocytes % (Manual) 17L, Monocytes % (Manual) 8, Eosinophils % (Manual) 1, Basophils % (Manual) 0, Band Neutrophils 0, Platelet Estimate DecreasedL, Platelet Morphology Normal, Red Blood Cell Morphology Normal, Sodium Level 138, Potassium Level 3.6, Chloride Level 102, Carbon Dioxide Level 21, Anion Gap 15, Blood Urea Nitrogen 63H, Creatinine 4.9H, Estimat Glomerular Filtration Rate 10.7, Glucose Level 133#H, Uric Acid 6.9, Calcium Level 8.4L, Phosphorus Level 3.3, Magnesium Level 1.8, Total Bilirubin 0.5, Aspartate Amino Transf (AST/SGOT) 40H, Alanine Aminotransferase (ALT/SGPT) 29, Alkaline Phosphatase 38L, C-Reactive Protein, Quantitative 0.8, Pro-B-Type Natriuretic Peptide 1097H, Total Protein 6.4, Albumin 2.6L, Globulin 3.8, Albumin/Globulin Ratio 0.7L Height (Feet): 5 Height (Inches): 1.00 Weight (Pounds): 120 General Appearance: no apparent distress Cardiovascular: normal rate Respiratory/Chest: decreased breath sounds Abdomen: soft Objective No change Almas Champion MD Jul 23, 2020 15:08
--- NOTE | 2020-07-23 18:00 | NUR ---
NURSE NOTES: Patient resting no complaints at this time.Bed alarm on,call light within reach.
--- NOTE | 2020-07-23 19:44 | NUR ---
NURSE HAND-OFF: Angelito MORRIS Important Events on Shift:[] Patient Status: [] Diet: []renal diet Pending Orders: [] Pending Results/Labs:[] Pending MD notification:[] Latest Vital Signs: Temperature 98.2 , Pulse 88 , B/P 137 /72 , Respiratory Rate 18 , O2 SAT 100 , Room Air, O2 Flow Rate . Vital Sign Comment: [] Latest English Fall Score: 55 Fall Risk: High Risk Safety Measures: Call light Within Reach, Bed Alarm Zone 1, Side Rails Side Rails x2, Bed position Low and Locked. Fall Precautions: Yellow Socks y Yellow Gown y Door Sign y Patient Fall Education Report given to []. Important Events on Shift:[] Patient Status: [] Diet: [] Pending Orders: [] Pending Results/Labs:[] Pending MD notification:[] Latest Vital Signs: Temperature 98.2 , Pulse 88 , B/P 137 /72 , Respiratory Rate 18 , O2 SAT 100 , Room Air, O2 Flow Rate . Vital Sign Comment: [] Latest Enlgish Fall Score: 55 Fall Risk: High Risk Safety Measures: Call light Within Reach, Bed Alarm Zone 1, Side Rails Side Rails x2, Bed position Low and Locked. Fall Precautions: Yellow Socks y Yellow Gown y Door Sign y Patient Fall Education Report given to [].
--- NOTE | 2020-07-23 20:00 | NUR ---
NURSE NOTES: Patient received in bed, awake. No signs of acute distress. IV is intact. Call light in reach. Will continue with plan of care.
[2020-07-23] MEDS: Iron Sucrose 100 MG in NS 55 ML IV SCH (20:12)
[2020-07-24 04:27] VITALS: BP 149/79
[2020-07-24] MEDS: Insulin NovoLOG Flexpen S/S (insulin sensitive) SUBQ SCH ×3 (06:04→16:41)
[2020-07-24 07:22] LABS: HEMATOCRIT 25.3 % (37.0-47.0); HEMOGLOBIN 8.7 G/DL (12.0-16.0); MEAN CORPUSCULAR VOLUME 88 FL (80-99); PLATELET COUNT 89 K/UL (150-450); RED BLOOD COUNT 2.86 M/UL (4.20-5.40); RED CELL DISTRIBUTION WIDTH 13.2 % (11.6-14.8); WHITE BLOOD COUNT 9.1 K/UL (4.8-10.8)
--- NOTE | 2020-07-24 07:32 | NUR ---
NURSE HAND-OFF: Important Events on Shift:[none] Patient Status: [eating, stable] Diet: [Renal] Pending Orders: [n/a] Pending Results/Labs:[see labs] Pending MD notification:[] Latest Vital Signs: Temperature 98.4 , Pulse 86 , B/P 149 /79 , Respiratory Rate 18 , O2 SAT 99 , Room Air, O2 Flow Rate . Vital Sign Comment: [stable] Latest English Fall Score: 55 Fall Risk: High Risk Safety Measures: Call light Within Reach, Bed Alarm Zone 1, Side Rails Side Rails x2, Bed position Low and Locked. Fall Precautions: Yellow Socks Yellow Gown Door Sign Patient Fall Education Report given to [Rosalba RN].
--- NOTE | 2020-07-24 07:45 | NUR ---
NURSE NOTES: Report received from ARTURO Eaton. Patient observed to be awake, alert, and oriented x4. Currently on room, no s/sx of SOB/Distress, no c/o any pain or gi/gu discomfort. IV site located on LFA g20, asymptomatic, inplace and intact. Bed placed on lowest and locked position, call light placed within reach and will continue to monitor.
[2020-07-24 07:53] LABS: CALCIUM 8.6 MG/DL (8.5-10.1); CREATININE 5.2 MG/DL (0.55-1.30); POTASSIUM 3.7 MMOL/L (3.5-5.1)
[2020-07-24 08:00] VITALS: BP 131/70
[2020-07-24] MEDS: Sodium Citrate 30ml ORAL SCH ×2 (09:02→12:01)
[2020-07-24] MEDS: Lacri-Lube Opth Oint 3.5gm BOTH EYES SCH ×2 (09:02→18:03)
[2020-07-24] MEDS: Nephrovite tab (Rena-Vite) ORAL SCH (09:03)
[2020-07-24] MEDS: Erythromycin Opth Ointment 1gm RIGHT EYE SCH ×4 (09:03→20:18)
[2020-07-24] MEDS: Thiamine 100mg tab ORAL SCH (09:03)
[2020-07-24] MEDS: Memantine 5 MG TAB ORAL SCH ×2 (09:03→18:03)
[2020-07-24] MEDS: Docusate 100mg cap ORAL SCH ×3 (09:03→18:03)
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
--- NOTE | 2020-07-24 09:43 | Initial Psychiatric Evaluation ---
Psychiatry Consultation Psychiatry Consultation Chief Complaint: Generalized Weakness History of Present Illness: 70yo female who is confused and disorganized with failure to thrive. She will continue to be followed by psychiatry to improve her cognition closer to her baseline, improve her mood and thus hopefully improve her appetitie. Allergies: Coded Allergies: PENICILLINS (Verified Allergy, Severe, Rash, 12/23/13) PENICILLIN G (Unverified Allergy, Unknown, 11/17/18) Medication History Scheduled Folic Acid* (Folic Acid*), 1 MG ORAL DAILY, (Reported) Levothyroxine Sodium* (Levothyroxine Sodium*), 50 MCG ORAL DAILY, (Reported) Metformin Hcl* (Metformin Hcl*), 500 MG ORAL TWICE A DAY Multivitamins* (Multivitamins*), 1 TAB ORAL DAILY, (Reported) Omeprazole (Omeprazole), 20 MG ORAL BID, (Reported) Scheduled PRN Tramadol Hcl* (Ultram*), 50 MG ORAL Q6H PRN for For Pain Discontinued Medications Alendronate Sodium* (Fosamax*), 70 MG ORAL ONCE A WEEK, (Reported) Discontinued Reason: Pt stopped taking med Insulin Detemir (Levemir Flexpen), 18 UNITS SUBQ BEDTIME Discontinued Reason: Pt stopped taking med Insulin Glargine (Lantus), 10 SUBQ BEFORE MEALS AND HS, (Reported) Discontinued Reason: Pt stopped taking med Insulin Glargine (Lantus), 10 SUBQ BEDTIME, (Reported) Discontinued Reason: Pt stopped taking med Insulin Glargine (Lantus), 0 SUBQ BEDTIME, (Reported) Discontinued Reason: Pt stopped taking med Levofloxacin* (Levaquin*), 750 MG ORAL DAILY, (Reported) Discontinued Reason: Pt stopped taking med [place]-3 Fatty Acids ([place]-3), 100 MG PO, (Reported) Discontinued Reason: Pt stopped taking med Prednisone (Prednisone), 5 MG ORAL DAILY Discontinued Reason: Pt stopped taking med Prednisone* (Prednisone*), 10 MG ORAL DAILY, (Reported) Discontinued Reason: Pt stopped taking med Objective Data Height (Feet): 5 Height (Inches): 1.00 Weight (Pounds): 120 Appearance: disheveled Behavior Mannerisms: difficulty R/T interviewer Affect: expansive Mood: depressed Speech: dysarthric Thought Process: disorganized Thought Content: delusions (specify) Perceptual Disturbances: hallucinations Suicidal Ideation: not present Assessment/Plan Assessment/Plan: Patient appears to be still confused disorganized at times still does not understand the severity of her medical illness will continue to help her with anxiety to reduce agitation and anxiety Linda Jack MD Jul 24, 2020 09:43
--- NOTE | 2020-07-24 09:51 | General Progress Note ---
Subjective Constitutional: Reports: weakness Allergies: Coded Allergies: PENICILLINS (Verified Allergy, Severe, Rash, 12/23/13) PENICILLIN G (Unverified Allergy, Unknown, 11/17/18) All Systems: reviewed and negative except above Subjective sleepy in bed Objective Last 24 Hour Vital Signs Date Time Temp Pulse Resp B/P (MAP) Pulse Ox O2 Delivery O2 Flow Rate FiO2 07/24/20 09:00 Room Air Room Air 07/24/20 08:00 97.0 92 20 131/70 (90) 97 07/24/20 04:27 98.4 86 18 149/79 (102) 99 07/23/20 23:46 98.6 90 18 146/78 (100) 97 07/23/20 21:00 Room Air Room Air 07/23/20 20:00 98.4 89 18 139/74 (95) 97 07/23/20 16:59 98.2 88 18 137/72 (93) 100 07/23/20 12:16 98.4 88 18 134/69 (90) 98 Intake and Output 07/23/20 07/24/20 19:00 07:00 Intake Total 720 ml 260 ml Output Total 200 ml Balance 520 ml 260 ml Intake Oral 720 ml 200 ml IV Total 60 ml Output Urine Total 200 ml # Voids 2 Laboratory Tests 07/24/20 06:10: White Blood Count 9.1, Red Blood Count 2.86L, Hemoglobin 8.7L, Hematocrit 25.3L, Mean Corpuscular Volume 88, Mean Corpuscular Hemoglobin 30.5, Mean Corpuscular Hemoglobin Concent 34.6, Red Cell Distribution Width 13.2, Platelet Count 89L, Mean Platelet Volume 7.3, Neutrophils (%) (Auto) , Lymphocytes (%) (Auto) , Monocytes (%) (Auto) , Eosinophils (%) (Auto) , Basophils (%) (Auto) , Differential Total Cells Counted 100, Neutrophils % (Manual) 72, Lymphocytes % (Manual) 17L, Monocytes % (Manual) 10, Eosinophils % (Manual) 1, Basophils % (Manual) 0, Band Neutrophils 0, Platelet Estimate DecreasedL, Platelet Morphology Normal, Hypochromasia 1+, Anisocytosis 1+, Sodium Level 140, Potassium Level 3.7, Chloride Level 105, Carbon Dioxide Level 23, Anion Gap 12, Blood Urea Nitrogen 71H, Creatinine 5.2H, Estimat Glomerular Filtration Rate 9.9, Glucose Level 106, Calcium Level 8.6 Height (Feet): 5 Height (Inches): 1.00 Weight (Pounds): 120 General Appearance: lethargic EENT: normal ENT inspection Neck: normal alignment Cardiovascular: normal peripheral pulses, normal rate, regular rhythm Respiratory/Chest: chest wall non-tender, lungs clear, normal breath sounds Abdomen: normal bowel sounds, non tender, soft Extremities: normal inspection Edema: no edema noted Arm (L), no edema noted Arm (R), no edema noted Leg (L), no edema noted Leg (R), no edema noted Pedal (L), no edema noted Pedal (R), no edema noted Generalized Neurologic: motor weakness Skin: normal pigmentation, warm/dry Assessment/Plan Problem List: (1) Weakness ICD Codes: R53.1 - Weakness SNOMED: 29658483 (2) DM (diabetes mellitus) ICD Codes: E11.9 - Type 2 diabetes mellitus without complications SNOMED: 52232582 (3) Anemia ICD Codes: D64.9 - Anemia, unspecified SNOMED: 719979843 Qualifiers: Qualified Codes: D64.9 - Anemia, unspecified (4) Acute renal failure ICD Codes: N17.9 - Acute kidney failure, unspecified SNOMED: 14101541 Qualifiers: Qualified Codes: N17.9 - Acute kidney failure, unspecified (5) FTT (failure to thrive) in adult ICD Codes: R62.7 - Adult failure to thrive SNOMED: 516718350 Status: stable, progressing Assessment/Plan: pt diet gi f/u transfuse prn cbc bmp am dc plan w Danyel Cobian DO Jul 24, 2020 09:51
--- NOTE | 2020-07-24 11:33 | Hematology/Onc Progress Note ---
Assessment/Plan Assessment/Plan Assessment and Recs # Anemia due to iron deficiency v gi bleed v chronic disease --> anemia panel has been reviewed --> hgb goal >7 --> has been started on epogen and iron --> hgb trennd 7.1-->6.7-->9.6->8.7 --> r/o hemolysis --> stool ob++ --> blood transfusions: 2 units 07/21, # Thrombocytopenia rule out underlying infection, consumptive process, does have hepatitis C --> plt trend 131-->106-->89 --> hiv negative, hep C++ --> us abd as needed --> baseline of 90--120 is noted --> if bleeding, consider plt transfusion # Coagulopathy likely related to chronic hep c --> rx underlying hep c once discharged # Acute renal failure --> as per renal --> workup as needed --> hd prn # Abd pain, genearlized weakness --> per gi care # Dvt ppx scds Appreciate consultation and dw Rn Subjective Constitutional: Denies: no symptoms, chills, fever, malaise, weakness, other HEENT: Denies: no symptoms, eye pain, blurred vision, tearing, double vision, ear pain, ear discharge, nose pain, nose congestion, throat pain, throat swelling, mouth pain, mouth swelling, other Cardiovascular: Denies: no symptoms, chest pain, edema, irregular heart rate, lightheadedness, palpitations, syncope, other Respiratory: Denies: no symptoms, cough, shortness of breath, SOB with excertion, SOB at rest, sputum, wheezing, other Gastrointestinal/Abdominal: Denies: no symptoms, abdomen distended, abdominal pain, black stools, tarry stools, blood in stool, constipated, diarrhea, difficulty swallowing, nausea, poor appetite, poor fluid intake, rectal bleeding, vomiting, other Allergies: Coded Allergies: PENICILLINS (Verified Allergy, Severe, Rash, 12/23/13) PENICILLIN G (Unverified Allergy, Unknown, 11/17/18) Subjective 07/23 s/p 2 units, hgb 9.6, hiv negative, iv iron, no distress 07/24 labs are noted, no bleeding, hgb 8.7, plt 89 Objective Objective Current Medications Medications (Trade) Dose Ordered Sig/Irma Route PRN Reason Start Time Stop Time Status Last Admin Dose Admin Allopurinol (allopurinoL) 300 mg DAILY ORAL 07/20/20 10:00 08/19/20 09:59 07/24/20 09:02 Artificial Tears (Lacri-Lube) 1 applic BID BOTH EYES 07/23/20 09:00 08/22/20 08:59 07/24/20 09:02 Dextrose (Dextrose 50%) 25 ml Q30M PRN IV Hypoglycemia 07/19/20 22:00 08/18/20 21:56 Dextrose (Dextrose 50%) 50 ml Q30M PRN IV hypoglycemia 07/19/20 22:00 08/18/20 21:59 Docusate Sodium (Colace) 100 mg THREE TIMES A DAY ORAL 07/20/20 09:00 08/19/20 08:59 07/24/20 09:03 Epoetin Jose (Epoetin Jose-EPBX(NON ESRD)) 10,000 unit SAT-SAT-SAT SUBQ 07/20/20 21:00 10/18/20 20:59 07/22/20 20:56 Erythromycin (Ilotycin) 1 applic FOUR TIMES A DAY RIGHT EYE 07/22/20 21:00 07/29/20 20:59 07/24/20 09:03 Hydralazine HCl (Apresoline) 25 mg Q4H PRN ORAL bp over 160 syst 07/19/20 19:00 10/17/20 18:59 Insulin Aspart (NovoLOG) No Dose BEFORE MEALS SUBQ 07/19/20 23:00 10/17/20 22:59 07/23/20 17:09 Iron Sucrose 100 mg/Sodium Chloride 60 ml @ 240 mls/hr BEDTIME IV 07/21/20 21:00 07/25/20 21:14 07/23/20 20:12 Levothyroxine Sodium (Synthroid) 50 mcg ACBREAKFAST ORAL 07/20/20 06:30 08/19/20 06:29 07/24/20 06:04 Lorazepam (Ativan) 1 mg Q6H PRN ORAL For Anxiety 07/21/20 15:15 07/28/20 15:14 Memantine (Namenda) 5 mg BID ORAL 07/21/20 18:00 08/20/20 17:59 07/24/20 09:03 Metoclopramide HCl (Reglan) 5 mg BEFORE MEALS ORAL 07/22/20 11:30 08/21/20 11:29 07/24/20 06:04 Metoclopramide HCl (Reglan) 10 mg Q6H PRN IVP Nausea & Vomiting 07/19/20 19:00 08/18/20 18:59 Pantoprazole (Protonix) 40 mg EVERY 12 HOURS ORAL 07/19/20 21:00 08/18/20 20:59 07/24/20 09:03 Polyethylene Glycol/ Electrolytes (Golytely) 4,000 ml ONCE ORAL 07/24/20 16:00 07/24/20 23:59 Sodium Citrate (Bicitra) 30 ml TID ORAL 07/22/20 13:00 08/19/20 00:00 07/24/20 09:02 Thiamine HCl (Vitamin B1) 100 mg DAILY ORAL 07/21/20 09:00 08/20/20 08:59 07/24/20 09:03 Vitamin B Complex/ Vit C/Folic Acid (Nephrovite) 1 tab DAILY ORAL 07/21/20 09:00 08/20/20 08:59 07/24/20 09:03 Last 24 Hour Vital Signs Date Time Temp Pulse Resp B/P (MAP) Pulse Ox O2 Delivery O2 Flow Rate FiO2 07/24/20 09:00 Room Air Room Air 07/24/20 08:00 97.0 92 20 131/70 (90) 97 07/24/20 04:27 98.4 86 18 149/79 (102) 99 07/23/20 23:46 98.6 90 18 146/78 (100) 97 07/23/20 21:00 Room Air Room Air 07/23/20 20:00 98.4 89 18 139/74 (95) 97 07/23/20 16:59 98.2 88 18 137/72 (93) 100 07/23/20 12:16 98.4 88 18 134/69 (90) 98 07/23/20 09:00 Room Air Room Air 07/23/20 08:00 98.6 91 18 134/70 (91) 98 07/23/20 04:00 98.6 91 18 154/86 (108) 97 07/23/20 00:00 98.1 89 18 151/78 (102) 98 07/22/20 21:00 Room Air Room Air 07/22/20 20:00 98.7 90 18 152/84 (106) 99 07/22/20 16:00 97.4 81 18 139/75 (96) 97 07/22/20 12:00 98.6 88 17 143/83 (103) 98 Intake and Output 07/23/20 07/24/20 19:00 07:00 Intake Total 720 ml 260 ml Output Total 200 ml Balance 520 ml 260 ml Intake Oral 720 ml 200 ml IV Total 60 ml Output Urine Total 200 ml # Voids 2 Labs Test 07/22/20 08:30 07/22/20 08:45 07/23/20 04:30 07/24/20 06:10 White Blood Count 10.0 K/UL (4.8-10.8) 9.4 K/UL (4.8-10.8) 9.1 K/UL (4.8-10.8) Red Blood Count 3.15 M/UL (4.20-5.40) 3.17 M/UL (4.20-5.40) 2.86 M/UL (4.20-5.40) Hemoglobin 9.5 G/DL (12.0-16.0) 9.6 G/DL (12.0-16.0) 8.7 G/DL (12.0-16.0) Hematocrit 27.8 % (37.0-47.0) 27.8 % (37.0-47.0) 25.3 % (37.0-47.0) Mean Corpuscular Volume 88 FL (80-99) 87 FL (80-99) 88 FL (80-99) Mean Corpuscular Hemoglobin 30.2 PG (27.0-31.0) 30.4 PG (27.0-31.0) 30.5 PG (27.0-31.0) Mean Corpuscular Hemoglobin Concent 34.2 G/DL (32.0-36.0) 34.8 G/DL (32.0-36.0) 34.6 G/DL (32.0-36.0) Red Cell Distribution Width 13.3 % (11.6-14.8) 13.4 % (11.6-14.8) 13.2 % (11.6-14.8) Platelet Count 90 K/UL (150-450) 84 K/UL (150-450) 89 K/UL (150-450) Mean Platelet Volume 6.4 FL (6.5-10.1) 5.9 FL (6.5-10.1) 7.3 FL (6.5-10.1) Neutrophils (%) (Auto) % (45.0-75.0) % (45.0-75.0) % (45.0-75.0) Lymphocytes (%) (Auto) % (20.0-45.0) % (20.0-45.0) % (20.0-45.0) Monocytes (%) (Auto) % (1.0-10.0) % (1.0-10.0) % (1.0-10.0) Eosinophils (%) (Auto) % (0.0-3.0) % (0.0-3.0) % (0.0-3.0) Basophils (%) (Auto) % (0.0-2.0) % (0.0-2.0) % (0.0-2.0) Differential Total Cells Counted 100 100 100 Neutrophils % (Manual) 67 % (45-75) 74 % (45-75) 72 % (45-75) Lymphocytes % (Manual) 27 % (20-45) 17 % (20-45) 17 % (20-45) Monocytes % (Manual) 5 % (1-10) 8 % (1-10) 10 % (1-10) Eosinophils % (Manual) 0 % (0-3) 1 % (0-3) 1 % (0-3) Basophils % (Manual) 1 % (0-2) 0 % (0-2) 0 % (0-2) Band Neutrophils 0 % (0-8) 0 % (0-8) 0 % (0-8) Platelet Estimate Decreased Decreased Decreased Platelet Morphology Normal Normal Normal Hypochromasia 1+ 1+ Uric Acid 7.9 MG/DL (2.6-7.2) 6.9 MG/DL (2.6-7.2) Phosphorus Level 2.9 MG/DL (2.5-4.9) 3.3 MG/DL (2.5-4.9) Total Bilirubin 1.1 MG/DL (0.2-1.0) 0.5 MG/DL (0.2-1.0) Direct Bilirubin 0.3 MG/DL (0.0-0.3) Aspartate Amino Transf (AST/SGOT) 34 U/L (15-37) 40 U/L (15-37) Alanine Aminotransferase (ALT/SGPT) 26 U/L (12-78) 29 U/L (12-78) Alkaline Phosphatase 39 U/L (46-116) 38 U/L (46-116) Total Protein 6.2 G/DL (6.4-8.2) 6.4 G/DL (6.4-8.2) Albumin 2.6 G/DL (3.4-5.0) 2.6 G/DL (3.4-5.0) Sodium Level 136 MMOL/L (136-145) 138 MMOL/L (136-145) 140 MMOL/L (136-145) Potassium Level 3.3 MMOL/L (3.5-5.1) 3.6 MMOL/L (3.5-5.1) 3.7 MMOL/L (3.5-5.1) Chloride Level 101 MMOL/L (98-107) 102 MMOL/L (98-107) 105 MMOL/L (98-107) Carbon Dioxide Level 18 MMOL/L (21-32) 21 MMOL/L (21-32) 23 MMOL/L (21-32) Anion Gap 17 mmol/L (5-15) 15 mmol/L (5-15) 12 mmol/L (5-15) Blood Urea Nitrogen 60 mg/dL (7-18) 63 mg/dL (7-18) 71 mg/dL (7-18) Creatinine 4.9 MG/DL (0.55-1.30) 4.9 MG/DL (0.55-1.30) 5.2 MG/DL (0.55-1.30) Estimat Glomerular Filtration Rate 10.7 mL/min (>60) 10.7 mL/min (>60) 9.9 mL/min (>60) Glucose Level 244 MG/DL (74-106) 133 MG/DL (74-106) 106 MG/DL (74-106) Calcium Level 8.2 MG/DL (8.5-10.1) 8.4 MG/DL (8.5-10.1) 8.6 MG/DL (8.5-10.1) Red Blood Cell Morphology Normal Magnesium Level 1.8 MG/DL (1.8-2.4) C-Reactive Protein, Quantitative 0.8 mg/dL (0.00-0.90) Pro-B-Type Natriuretic Peptide 1097 pg/mL (0-125) Globulin 3.8 g/dL Albumin/Globulin Ratio 0.7 (1.0-2.7) Anisocytosis 1+ Height (Feet): 5 Height (Inches): 1.00 Weight (Pounds): 120 Objective PE General: thin, Chronically Ill HEENT: right eye other - Enucleated; left eye Scleral Injection - Green discharge Resp: lungs clear, normal breath sounds Cardiovascular: regular rate, rhythm Gastrointestinal: no guarding, no rebound, tenderness Musculoskeletal: back normal, moves extm spontaneously Neurologic: alert, oriented - X2, sensory intact, motor weakness - Generalized, speech normal Psychiatric: no suicidal/homicidal ideation, depressed affect, anxious Skin: warm/dry Yohan Nunez MD Jul 24, 2020 11:33
[2020-07-24 12:00] VITALS: BP 140/68
--- NOTE | 2020-07-24 13:38 | NUR ---
NURSE NOTES: Whitney from [employer] called and stated that patient was COVID negative.
[2020-07-24 16:00] VITALS: BP 139/70
[2020-07-24] MEDS ORDERED: Golytely 4L ORAL SCH (16:00)
--- NOTE | 2020-07-24 16:11 | Nephrology Progress Note ---
Assessment/Plan Problem List: (1) Renal failure (ARF), acute on chronic (2) Acute renal failure (3) Anemia in chronic kidney disease (CKD) (4) FTT (failure to thrive) in adult (5) DM (diabetes mellitus) Assessment Renal failure most likely acute on chronic Anemia, most likely anemia of chronic disease History of diabetes, Plan July 24: Patient agreed to dialysis- Consented for permacath. HD in am. July 23: Clinically stable. Labs reviewed.. Medication list reviewed. Discussed regarding initiation of dialysis. Patient is still indecisive. July 22: Patient transfused 2 units of packed RBCs. Hemoglobin higher. Blood pressure medication adjusted. IV fluid discontinued. Nails catheter discontinued. Potassium supplement given. GFR 10. Continue to monitor renal parameters and electrolytes. Will discuss again the need for dialysis treatment. Physical therapy treatment ordered. Previously: 2D echocardiogram monitor results noted Kidney ultrasound, results noted Nails catheter Urine studies Avoid nephrotoxic's Anemia work-up Subcu Epogen IV iron Transfusion, patient refused transfusion. She does not believe that the type and crossmatch at the [place] matches her blood group and type Per orders Kidney ultrasound results: SMALL LEFT KIDNEY. BOTH KIDNEYS APPEAR ECHOGENIC LIKELY REFLECTING MEDICAL RENAL DISEASE. NO OBSTRUCTIVE UROPATHY. 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 2D echocardiogram results: Normal left ventricular chamber size, systolic function and wall motion. Left ventricular ejection fraction estimated to be 65-70%. Mild left ventricular hypertrophy by 2-D. Subjective ROS Limited/Unobtainable: No Objective Objective Last 24 Hour Vital Signs Date Time Temp Pulse Resp B/P (MAP) Pulse Ox O2 Delivery O2 Flow Rate FiO2 07/24/20 12:00 97.2 86 18 140/68 (92) 98 07/24/20 09:00 Room Air Room Air 07/24/20 08:00 97.0 92 20 131/70 (90) 97 07/24/20 04:27 98.4 86 18 149/79 (102) 99 07/23/20 23:46 98.6 90 18 146/78 (100) 97 07/23/20 21:00 Room Air Room Air 07/23/20 20:00 98.4 89 18 139/74 (95) 97 07/23/20 16:59 98.2 88 18 137/72 (93) 100 Intake and Output 07/23/20 07/24/20 19:00 07:00 Intake Total 720 ml 260 ml Output Total 200 ml Balance 520 ml 260 ml Intake Oral 720 ml 200 ml IV Total 60 ml Output Urine Total 200 ml # Voids 2 Current Medications Medications (Trade) Dose Ordered Sig/Irma Route PRN Reason Start Time Stop Time Status Last Admin Dose Admin Allopurinol (allopurinoL) 300 mg DAILY ORAL 07/20/20 10:00 08/19/20 09:59 07/24/20 09:02 Artificial Tears (Lacri-Lube) 1 applic BID BOTH EYES 07/23/20 09:00 08/22/20 08:59 07/24/20 09:02 Dextrose (Dextrose 50%) 25 ml Q30M PRN IV Hypoglycemia 07/19/20 22:00 08/18/20 21:56 Dextrose (Dextrose 50%) 50 ml Q30M PRN IV hypoglycemia 07/19/20 22:00 08/18/20 21:59 Docusate Sodium (Colace) 100 mg THREE TIMES A DAY ORAL 07/20/20 09:00 08/19/20 08:59 07/24/20 12:01 Epoetin Jose (Epoetin Jose-EPBX(NON ESRD)) 10,000 unit MON-WED-SAT SUBQ 07/20/20 21:00 10/18/20 20:59 07/22/20 20:56 Erythromycin (Ilotycin) 1 applic FOUR TIMES A DAY RIGHT EYE 07/22/20 21:00 07/29/20 20:59 07/24/20 12:01 Hydralazine HCl (Apresoline) 25 mg Q4H PRN ORAL bp over 160 syst 07/19/20 19:00 10/17/20 18:59 Insulin Aspart (NovoLOG) No Dose BEFORE MEALS SUBQ 07/19/20 23:00 10/17/20 22:59 07/24/20 11:54 Iron Sucrose 100 mg/Sodium Chloride 60 ml @ 240 mls/hr BEDTIME IV 07/21/20 21:00 07/25/20 21:14 07/23/20 20:12 Levothyroxine Sodium (Synthroid) 50 mcg ACBREAKFAST ORAL 07/20/20 06:30 08/19/20 06:29 07/24/20 06:04 Lorazepam (Ativan) 1 mg Q6H PRN ORAL For Anxiety 07/21/20 15:15 07/28/20 15:14 Memantine (Namenda) 5 mg BID ORAL 07/21/20 18:00 08/20/20 17:59 07/24/20 09:03 Metoclopramide HCl (Reglan) 5 mg BEFORE MEALS ORAL 07/22/20 11:30 08/21/20 11:29 07/24/20 15:57 Metoclopramide HCl (Reglan) 10 mg Q6H PRN IVP Nausea & Vomiting 07/19/20 19:00 08/18/20 18:59 Pantoprazole (Protonix) 40 mg EVERY 12 HOURS ORAL 07/19/20 21:00 08/18/20 20:59 07/24/20 09:03 Polyethylene Glycol/ Electrolytes (Golytely) 4,000 ml ONCE ORAL 07/24/20 16:00 07/24/20 23:59 07/24/20 15:57 Thiamine HCl (Vitamin B1) 100 mg DAILY ORAL 07/21/20 09:00 08/20/20 08:59 07/24/20 09:03 Vitamin B Complex/ Vit C/Folic Acid (Nephrovite) 1 tab DAILY ORAL 07/21/20 09:00 08/20/20 08:59 07/24/20 09:03 Laboratory Tests 07/24/20 06:10: White Blood Count 9.1, Red Blood Count 2.86L, Hemoglobin 8.7L, Hematocrit 25.3L, Mean Corpuscular Volume 88, Mean Corpuscular Hemoglobin 30.5, Mean Corpuscular Hemoglobin Concent 34.6, Red Cell Distribution Width 13.2, Platelet Count 89L, Mean Platelet Volume 7.3, Neutrophils (%) (Auto) , Lymphocytes (%) (Auto) , Monocytes (%) (Auto) , Eosinophils (%) (Auto) , Basophils (%) (Auto) , Differential Total Cells Counted 100, Neutrophils % (Manual) 72, Lymphocytes % (Manual) 17L, Monocytes % (Manual) 10, Eosinophils % (Manual) 1, Basophils % (Manual) 0, Band Neutrophils 0, Platelet Estimate DecreasedL, Platelet Morphology Normal, Hypochromasia 1+, Anisocytosis 1+, Sodium Level 140, Potassium Level 3.7, Chloride Level 105, Carbon Dioxide Level 23, Anion Gap 12, Blood Urea Nitrogen 71H, Creatinine 5.2H, Estimat Glomerular Filtration Rate 9.9, Glucose Level 106, Calcium Level 8.6 Height (Feet): 5 Height (Inches): 1.00 Weight (Pounds): 120 General Appearance: no apparent distress Cardiovascular: normal rate Respiratory/Chest: lungs clear Abdomen: soft Objective No change Almas Champion MD Jul 24, 2020 16:11
--- NOTE | 2020-07-24 19:28 | NUR ---
NURSE NOTES: Received report from Rosalba RN. Rounding is done. Patient is a/ox4. Denied any pain at this time. No any distress noted at this time. Breathing is even and unlabored on RA. IV site is intact and patent. Bed is on alarm, locked, and lowest position. Call light within reach. Will continue to monitor.
--- NOTE | 2020-07-24 19:35 | NUR ---
NURSE HAND-OFF: Important Events on Shift:consents for HD, Tunnel catheter insertion, colonoscopy, and esophagogastroduodenoscopy obtained. Currently on bowel prep Patient Status: stable Diet: CLD and NPO at midnight Pending Orders: n/a Pending Results/Labs:n/a Pending MD notification:n/a Latest Vital Signs: Temperature 98.1 , Pulse 84 , B/P 139 /70 , Respiratory Rate 19 , O2 SAT 96 , Room Air, O2 Flow Rate . Vital Sign Comment: stable Latest English Fall Score: 55 Fall Risk: High Risk Safety Measures: Call light Within Reach, Bed Alarm Zone 1, Side Rails Side Rails x2, Bed position Low and Locked. Fall Precautions: Yellow Socks Yellow Gown Door Sign Patient Fall Education Report given to ARTURO Lai.
[2020-07-24 20:00] VITALS: BP 143/72
[2020-07-24] MEDS: Iron Sucrose 100 MG in NS 55 ML IV SCH (20:17)
--- NOTE | 2020-07-24 21:05 | NUR ---
NURSE NOTES: Called to Dr. Stanton that patient couldn't finish Golytely and had vomiting after taking golytely. Dr. Stanton ordered to change the prep to miralax and zofran 4mg IV q6 hrs prn. Will follow up.
[2020-07-24] MEDS ORDERED: Polyethylene Glycol 238gm bottle ORAL SCH (22:00)
[2020-07-25] VITALS (19 sets, daily range): BP systolic 127–172; BP diastolic 59–84
[2020-07-25] MEDS: Insulin NovoLOG Flexpen S/S (insulin sensitive) SUBQ SCH ×3 (05:47→16:30)
--- NOTE | 2020-07-25 06:35 | NUR ---
NURSE NOTES: patient had yellow watery stool with some of particles. Will continue to monitor.
[2020-07-25 07:15] LABS: BASOPHILS % (AUTO) 1.5 % (0.0-2.0); EOSINOPHILS % (AUTO) 1.1 % (0.0-3.0); HEMATOCRIT 27.1 % (37.0-47.0); HEMOGLOBIN 9.4 G/DL (12.0-16.0); LYMPHOCYTES % (AUTO) 18.3 % (20.0-45.0); MEAN CORPUSCULAR VOLUME 89 FL (80-99); MONOCYTES % (AUTO) 12.1 % (1.0-10.0); NEUTROPHILS % (AUTO) 67.1 % (45.0-75.0); PLATELET COUNT 107 K/UL (150-450); RED BLOOD COUNT 3.04 M/UL (4.20-5.40); RED CELL DISTRIBUTION WIDTH 13.5 % (11.6-14.8); WHITE BLOOD COUNT 8.8 K/UL (4.8-10.8)
--- NOTE | 2020-07-25 07:23 | NUR ---
NURSE HAND-OFF: Important Events on Shift:[Prepare for procedure] Patient Status: [stable] Diet: [NPO] Pending Orders: [N] Pending Results/Labs:[N] Pending MD notification:[N] Latest Vital Signs: Temperature 98.8 , Pulse 89 , B/P 138 /77 , Respiratory Rate 18 , O2 SAT 98 , Room Air, O2 Flow Rate . Vital Sign Comment: [STABLE] Latest English Fall Score: 55 Fall Risk: High Risk Safety Measures: Call light Within Reach, Bed Alarm Zone 1, Side Rails Side Rails x2, Bed position Low and Locked. Fall Precautions: Yellow Socks Yellow Gown Door Sign Patient Fall Education Report given to [De RN].
[2020-07-25 07:30] LABS: INR 1.2 (0.9-1.1)
[2020-07-25 07:32] LABS: CALCIUM 8.6 MG/DL (8.5-10.1); CREATININE 4.9 MG/DL (0.55-1.30); POTASSIUM 3.5 MMOL/L (3.5-5.1)
[2020-07-25 07:35] LABS: ALBUMIN 2.6 G/DL (3.4-5.0); ALBUMIN/GLOBULIN RATIO 0.7 (1.0-2.7); BILIRUBIN,TOTAL 0.5 MG/DL (0.2-1.0); PHOSPHORUS 3.1 MG/DL (2.5-4.9)
--- NOTE | 2020-07-25 07:52 | NUR ---
NURSE NOTES: Report received from Joelle/ARTURO Eaton. Patient seen on rounds, AxOx4, not in pain or distress. Nurse reports pt underwent bowel prep last night and had stool with some particles in AM for anticipated procedure. Pt has been NPO except meds since midnight and education reinforced. PIV on left forearm patent and intact. Pt is continent but requests to wear diaper this AM due to bowel prep. GI checklist initiated. Bed low and locked, siderails up x2, call light placed within reach and instructed to call nurse for assistance. Will continue to monitor.
--- NOTE | 2020-07-25 07:55 | NUR ---
NURSE NOTES: Spoke with Zackery chowdhury, dialysis nurse who confirmed she is aware of dialysis orders for today and advised to update her once tunnel catheter for dialysis access has been placed.
--- NOTE | 2020-07-25 08:16 | NUR ---
NURSE NOTES: Spoke with Heidi from GI lab, who confirmed pickup time for colonoscopy/EGD will be between 11:00-11:30 am today.
[2020-07-25] MEDS: Memantine 5 MG TAB ORAL SCH ×2 (08:26→18:15)
[2020-07-25] MEDS: Docusate 100mg cap ORAL SCH ×3 (08:26→18:15)
[2020-07-25] MEDS: Thiamine 100mg tab ORAL SCH (08:26)
[2020-07-25] MEDS: Nephrovite tab (Rena-Vite) ORAL SCH (08:26)
[2020-07-25] MEDS: Erythromycin Opth Ointment 1gm RIGHT EYE SCH ×4 (08:28→21:48)
[2020-07-25] MEDS: Lacri-Lube Opth Oint 3.5gm BOTH EYES SCH ×2 (08:28→18:15)
--- NOTE | 2020-07-25 09:05 | Initial Psychiatric Evaluation ---
Psychiatry Consultation Psychiatry Consultation Chief Complaint: Generalized Weakness History of Present Illness: 70-year-old female patient she continues to have altered mental status confusion and failure to thrive declining cognition below her baseline Attending has requested daily psychiatric consultation throughout her hospital course Mental status examination: 70-year-old female her parents discovered her attitude irritable agitated her affect is labile intellect fork she has no creditors that will last for presence of mood depressed anxious motor activity psychomotor agitation attention span is poor orientation x2 speech is nonsensical thought process disorganized and illogical Insight and judgment is poor Allergies: Coded Allergies: PENICILLINS (Verified Allergy, Severe, Rash, 12/23/13) PENICILLIN G (Unverified Allergy, Unknown, 11/17/18) Medication History Scheduled Folic Acid* (Folic Acid*), 1 MG ORAL DAILY, (Reported) Levothyroxine Sodium* (Levothyroxine Sodium*), 50 MCG ORAL DAILY, (Reported) Metformin Hcl* (Metformin Hcl*), 500 MG ORAL TWICE A DAY Multivitamins* (Multivitamins*), 1 TAB ORAL DAILY, (Reported) Omeprazole (Omeprazole), 20 MG ORAL BID, (Reported) Scheduled PRN Tramadol Hcl* (Ultram*), 50 MG ORAL Q6H PRN for For Pain Discontinued Medications Alendronate Sodium* (Fosamax*), 70 MG ORAL ONCE A WEEK, (Reported) Discontinued Reason: Pt stopped taking med Insulin Detemir (Levemir Flexpen), 18 UNITS SUBQ BEDTIME Discontinued Reason: Pt stopped taking med Insulin Glargine (Lantus), 10 SUBQ BEFORE MEALS AND HS, (Reported) Discontinued Reason: Pt stopped taking med Insulin Glargine (Lantus), 10 SUBQ BEDTIME, (Reported) Discontinued Reason: Pt stopped taking med Insulin Glargine (Lantus), 0 SUBQ BEDTIME, (Reported) Discontinued Reason: Pt stopped taking med Levofloxacin* (Levaquin*), 750 MG ORAL DAILY, (Reported) Discontinued Reason: Pt stopped taking med [place]-3 Fatty Acids ([place]-3), 100 MG PO, (Reported) Discontinued Reason: Pt stopped taking med Prednisone (Prednisone), 5 MG ORAL DAILY Discontinued Reason: Pt stopped taking med Prednisone* (Prednisone*), 10 MG ORAL DAILY, (Reported) Discontinued Reason: Pt stopped taking med Objective Data Height (Feet): 5 Height (Inches): 1.00 Weight (Pounds): 131 Assessment/Plan Assessment/Plan: Patient appears to be still confused disorganized at times still does not understand the severity of her medical illness will continue to help her with anxiety to reduce agitation and anxiety Linda Jack MD Jul 25, 2020 09:05
--- NOTE | 2020-07-25 09:41 | Hematology/Onc Progress Note ---
Assessment/Plan Assessment/Plan Assessment and Recs # Anemia due to iron deficiency v gi bleed v chronic disease --> anemia panel has been reviewed --> hgb goal >7 --> has been started on epogen and iron --> hgb trennd 7.1-->6.7-->9.6->8.7-->9.7 --> r/o hemolysis --> stool ob++ --> blood transfusions: 2 units 07/21, # Thrombocytopenia rule out underlying infection, consumptive process, does have hepatitis C --> plt trend 131-->106-->89->107 --> hiv negative, hep C++ --> us abd as needed --> baseline of 90--120 is noted --> if bleeding, consider plt transfusion # Coagulopathy likely related to chronic hep c --> rx underlying hep c once discharged # Acute renal failure --> as per renal --> workup as needed --> hd prn # Abd pain, genearlized weakness --> per gi care # Dvt ppx scds Appreciate consultation and mariela Rn Subjective HEENT: Denies: no symptoms, eye pain, blurred vision, tearing, double vision, ear pain, ear discharge, nose pain, nose congestion, throat pain, throat swelling, mouth pain, mouth swelling, other Cardiovascular: Denies: no symptoms, chest pain, edema, irregular heart rate, lightheadedness, palpitations, syncope, other Respiratory: Denies: no symptoms, cough, shortness of breath, SOB with excertion, SOB at rest, sputum, wheezing, other Gastrointestinal/Abdominal: Denies: no symptoms, abdomen distended, abdominal pain, black stools, tarry stools, blood in stool, constipated, diarrhea, difficulty swallowing, nausea, poor appetite, poor fluid intake, rectal bleeding, vomiting, other Genitourinary: Denies: no symptoms, burning, discharge, frequency, flank pain, hematuria, incontinence, pain, urgency, other Neurologic/Psychiatric: Denies: no symptoms, anxiety, depressed, emotional problems, headache, numbness, paresthesia, pre-existing deficit, seizure, tingling, tremors, weakness, other Endocrine: Denies: no symptoms, excessive sweating, flushing, intolerance to cold, intolerance to heat, increased hunger, increased thirst, increased urine, unexplained weight gain, unexplained weight loss, other Hematologic/Lymphatic: Denies: no symptoms, anemia, easy bleeding, easy bruising, adenopathy, other Allergies: Coded Allergies: PENICILLINS (Verified Allergy, Severe, Rash, 12/23/13) PENICILLIN G (Unverified Allergy, Unknown, 11/17/18) Subjective 07/23 s/p 2 units, hgb 9.6, hiv negative, iv iron, no distress 07/24 labs are noted, no bleeding, hgb 8.7, plt 89 07/25 labs are noted, is for hd today as well as egd/colo Objective Objective Current Medications Medications (Trade) Dose Ordered Sig/Irma Route PRN Reason Start Time Stop Time Status Last Admin Dose Admin Allopurinol (allopurinoL) 300 mg DAILY ORAL 07/20/20 10:00 08/19/20 09:59 07/25/20 08:26 Artificial Tears (Lacri-Lube) 1 applic BID BOTH EYES 07/23/20 09:00 08/22/20 08:59 07/25/20 08:28 Dextrose (Dextrose 50%) 25 ml Q30M PRN IV Hypoglycemia 07/19/20 22:00 08/18/20 21:56 Dextrose (Dextrose 50%) 50 ml Q30M PRN IV hypoglycemia 07/19/20 22:00 08/18/20 21:59 Docusate Sodium (Colace) 100 mg THREE TIMES A DAY ORAL 07/20/20 09:00 08/19/20 08:59 07/25/20 08:26 Epoetin Jose (Epoetin Jose-EPBX(NON ESRD)) 10,000 unit SAT-SAT-SAT SUBQ 07/20/20 21:00 10/18/20 20:59 07/22/20 20:56 Erythromycin (Ilotycin) 1 applic FOUR TIMES A DAY RIGHT EYE 07/22/20 21:00 07/29/20 20:59 07/25/20 08:28 Hydralazine HCl (Apresoline) 25 mg Q4H PRN ORAL bp over 160 syst 07/19/20 19:00 10/17/20 18:59 Insulin Aspart (NovoLOG) No Dose BEFORE MEALS SUBQ 07/19/20 23:00 10/17/20 22:59 07/24/20 16:41 Iron Sucrose 100 mg/Sodium Chloride 60 ml @ 240 mls/hr BEDTIME IV 07/21/20 21:00 07/25/20 21:14 07/24/20 20:17 Levothyroxine Sodium (Synthroid) 50 mcg ACBREAKFAST ORAL 07/20/20 06:30 08/19/20 06:29 07/25/20 05:47 Lorazepam (Ativan) 1 mg Q6H PRN ORAL For Anxiety 07/21/20 15:15 07/28/20 15:14 Memantine (Namenda) 5 mg BID ORAL 07/21/20 18:00 08/20/20 17:59 07/25/20 08:26 Metoclopramide HCl (Reglan) 5 mg BEFORE MEALS ORAL 07/22/20 11:30 08/21/20 11:29 07/25/20 05:47 Metoclopramide HCl (Reglan) 10 mg Q6H PRN IVP Nausea & Vomiting 07/19/20 19:00 08/18/20 18:59 07/24/20 22:41 Ondansetron HCl (Zofran) 4 mg Q6H PRN IVP Nausea & Vomiting 07/24/20 21:15 08/23/20 21:14 Pantoprazole (Protonix) 40 mg EVERY 12 HOURS ORAL 07/19/20 21:00 08/18/20 20:59 07/25/20 08:26 Thiamine HCl (Vitamin B1) 100 mg DAILY ORAL 07/21/20 09:00 08/20/20 08:59 07/25/20 08:26 Vitamin B Complex/ Vit C/Folic Acid (Nephrovite) 1 tab DAILY ORAL 07/21/20 09:00 08/20/20 08:59 07/25/20 08:26 Last 24 Hour Vital Signs Date Time Temp Pulse Resp B/P (MAP) Pulse Ox O2 Delivery O2 Flow Rate FiO2 07/25/20 08:00 98.2 88 20 152/72 (98) 98 07/25/20 04:00 98.8 89 18 138/77 (97) 98 07/25/20 00:00 98.2 87 18 135/74 (94) 97 07/24/20 21:00 Room Air Room Air 07/24/20 20:00 98.1 88 19 143/72 (95) 98 07/24/20 16:00 98.1 84 19 139/70 (93) 96 07/24/20 12:00 97.2 86 18 140/68 (92) 98 07/24/20 09:00 Room Air Room Air 07/24/20 08:00 97.0 92 20 131/70 (90) 97 07/24/20 04:27 98.4 86 18 149/79 (102) 99 07/23/20 23:46 98.6 90 18 146/78 (100) 97 07/23/20 21:00 Room Air Room Air 07/23/20 20:00 98.4 89 18 139/74 (95) 97 07/23/20 16:59 98.2 88 18 137/72 (93) 100 07/23/20 12:16 98.4 88 18 134/69 (90) 98 Intake and Output 07/24/20 07/25/20 19:00 07:00 Intake Total 800 ml 60 ml Balance 800 ml 60 ml Intake Oral 800 ml IV Total 60 ml # Voids 4 # Bowel Movements 5 Labs Test 07/23/20 04:30 07/24/20 06:10 07/25/20 06:50 White Blood Count 9.4 K/UL (4.8-10.8) 9.1 K/UL (4.8-10.8) 8.8 K/UL (4.8-10.8) Red Blood Count 3.17 M/UL (4.20-5.40) 2.86 M/UL (4.20-5.40) 3.04 M/UL (4.20-5.40) Hemoglobin 9.6 G/DL (12.0-16.0) 8.7 G/DL (12.0-16.0) 9.4 G/DL (12.0-16.0) Hematocrit 27.8 % (37.0-47.0) 25.3 % (37.0-47.0) 27.1 % (37.0-47.0) Mean Corpuscular Volume 87 FL (80-99) 88 FL (80-99) 89 FL (80-99) Mean Corpuscular Hemoglobin 30.4 PG (27.0-31.0) 30.5 PG (27.0-31.0) 30.8 PG (27.0-31.0) Mean Corpuscular Hemoglobin Concent 34.8 G/DL (32.0-36.0) 34.6 G/DL (32.0-36.0) 34.5 G/DL (32.0-36.0) Red Cell Distribution Width 13.4 % (11.6-14.8) 13.2 % (11.6-14.8) 13.5 % (11.6-14.8) Platelet Count 84 K/UL (150-450) 89 K/UL (150-450) 107 K/UL (150-450) Mean Platelet Volume 5.9 FL (6.5-10.1) 7.3 FL (6.5-10.1) 6.6 FL (6.5-10.1) Neutrophils (%) (Auto) % (45.0-75.0) % (45.0-75.0) 67.1 % (45.0-75.0) Lymphocytes (%) (Auto) % (20.0-45.0) % (20.0-45.0) 18.3 % (20.0-45.0) Monocytes (%) (Auto) % (1.0-10.0) % (1.0-10.0) 12.1 % (1.0-10.0) Eosinophils (%) (Auto) % (0.0-3.0) % (0.0-3.0) 1.1 % (0.0-3.0) Basophils (%) (Auto) % (0.0-2.0) % (0.0-2.0) 1.5 % (0.0-2.0) Differential Total Cells Counted 100 100 Neutrophils % (Manual) 74 % (45-75) 72 % (45-75) Lymphocytes % (Manual) 17 % (20-45) 17 % (20-45) Monocytes % (Manual) 8 % (1-10) 10 % (1-10) Eosinophils % (Manual) 1 % (0-3) 1 % (0-3) Basophils % (Manual) 0 % (0-2) 0 % (0-2) Band Neutrophils 0 % (0-8) 0 % (0-8) Platelet Estimate Decreased Decreased Platelet Morphology Normal Normal Red Blood Cell Morphology Normal Sodium Level 138 MMOL/L (136-145) 140 MMOL/L (136-145) 141 MMOL/L (136-145) Potassium Level 3.6 MMOL/L (3.5-5.1) 3.7 MMOL/L (3.5-5.1) 3.5 MMOL/L (3.5-5.1) Chloride Level 102 MMOL/L (98-107) 105 MMOL/L (98-107) 104 MMOL/L (98-107) Carbon Dioxide Level 21 MMOL/L (21-32) 23 MMOL/L (21-32) 24 MMOL/L (21-32) Anion Gap 15 mmol/L (5-15) 12 mmol/L (5-15) 13 mmol/L (5-15) Blood Urea Nitrogen 63 mg/dL (7-18) 71 mg/dL (7-18) 66 mg/dL (7-18) Creatinine 4.9 MG/DL (0.55-1.30) 5.2 MG/DL (0.55-1.30) 4.9 MG/DL (0.55-1.30) Estimat Glomerular Filtration Rate 10.7 mL/min (>60) 9.9 mL/min (>60) 10.7 mL/min (>60) Glucose Level 133 MG/DL (74-106) 106 MG/DL (74-106) 102 MG/DL (74-106) Uric Acid 6.9 MG/DL (2.6-7.2) 5.2 MG/DL (2.6-7.2) Calcium Level 8.4 MG/DL (8.5-10.1) 8.6 MG/DL (8.5-10.1) 8.6 MG/DL (8.5-10.1) Phosphorus Level 3.3 MG/DL (2.5-4.9) 3.1 MG/DL (2.5-4.9) Magnesium Level 1.8 MG/DL (1.8-2.4) 1.5 MG/DL (1.8-2.4) Total Bilirubin 0.5 MG/DL (0.2-1.0) 0.5 MG/DL (0.2-1.0) Aspartate Amino Transf (AST/SGOT) 40 U/L (15-37) 55 U/L (15-37) Alanine Aminotransferase (ALT/SGPT) 29 U/L (12-78) 41 U/L (12-78) Alkaline Phosphatase 38 U/L (46-116) 38 U/L (46-116) C-Reactive Protein, Quantitative 0.8 mg/dL (0.00-0.90) Pro-B-Type Natriuretic Peptide 1097 pg/mL (0-125) Total Protein 6.4 G/DL (6.4-8.2) 6.4 G/DL (6.4-8.2) Albumin 2.6 G/DL (3.4-5.0) 2.6 G/DL (3.4-5.0) Globulin 3.8 g/dL 3.8 g/dL Albumin/Globulin Ratio 0.7 (1.0-2.7) 0.7 (1.0-2.7) Hypochromasia 1+ Anisocytosis 1+ Prothrombin Time 12.7 SEC (9.30-11.50) Prothromb Time International Ratio 1.2 (0.9-1.1) Activated Partial Thromboplast Time 31 SEC (23-33) Micro Microbiology Date/Time Source Procedure Growth Status 07/24/20 12:20 Nasopharynx SARS-CoV-2 RdRp Gene Assay - Final Complete Height (Feet): 5 Height (Inches): 1.00 Weight (Pounds): 131 Objective PE General: thin, Chronically Ill HEENT: right eye other - Enucleated; left eye Scleral Injection - Green discharge Resp: lungs clear, normal breath sounds Cardiovascular: regular rate, rhythm Gastrointestinal: no guarding, no rebound, tenderness Musculoskeletal: back normal, moves extm spontaneously Neurologic: alert, oriented - X2, sensory intact, motor weakness - Generalized, speech normal Psychiatric: no suicidal/homicidal ideation, depressed affect, anxious Skin: warm/dry Yohan Nunez MD Jul 25, 2020 09:41
--- NOTE | 2020-07-25 10:12 | General Progress Note ---
Subjective Constitutional: Reports: weakness Allergies: Coded Allergies: PENICILLINS (Verified Allergy, Severe, Rash, 12/23/13) PENICILLIN G (Unverified Allergy, Unknown, 11/17/18) All Systems: reviewed and negative except above Subjective sleepy in bed Objective Last 24 Hour Vital Signs Date Time Temp Pulse Resp B/P (MAP) Pulse Ox O2 Delivery O2 Flow Rate FiO2 07/25/20 09:00 Room Air Room Air 07/25/20 08:00 98.2 88 20 152/72 (98) 98 07/25/20 04:00 98.8 89 18 138/77 (97) 98 07/25/20 00:00 98.2 87 18 135/74 (94) 97 07/24/20 21:00 Room Air Room Air 07/24/20 20:00 98.1 88 19 143/72 (95) 98 07/24/20 16:00 98.1 84 19 139/70 (93) 96 07/24/20 12:00 97.2 86 18 140/68 (92) 98 Intake and Output 07/24/20 07/25/20 19:00 07:00 Intake Total 800 ml 60 ml Balance 800 ml 60 ml Intake Oral 800 ml IV Total 60 ml # Voids 4 # Bowel Movements 5 Laboratory Tests 07/25/20 06:50: White Blood Count 8.8, Red Blood Count 3.04L, Hemoglobin 9.4L, Hematocrit 27.1L, Mean Corpuscular Volume 89, Mean Corpuscular Hemoglobin 30.8, Mean Corpuscular Hemoglobin Concent 34.5, Red Cell Distribution Width 13.5, Platelet Count 107L, Mean Platelet Volume 6.6, Neutrophils (%) (Auto) 67.1, Lymphocytes (%) (Auto) 18.3L, Monocytes (%) (Auto) 12.1H, Eosinophils (%) (Auto) 1.1, Basophils (%) (Auto) 1.5, Prothrombin Time 12.7H, Prothromb Time International Ratio 1.2H, Activated Partial Thromboplast Time 31, Sodium Level 141, Potassium Level 3.5, Chloride Level 104, Carbon Dioxide Level 24, Anion Gap 13, Blood Urea Nitrogen 66H, Creatinine 4.9H, Estimat Glomerular Filtration Rate 10.7, Glucose Level 102, Uric Acid 5.2, Calcium Level 8.6, Phosphorus Level 3.1, Magnesium Level 1. 5L, Total Bilirubin 0.5, Aspartate Amino Transf (AST/SGOT) 55H, Alanine Aminotransferase (ALT/SGPT) 41, Alkaline Phosphatase 38L, Total Protein 6.4, Albumin 2.6L, Globulin 3.8, Albumin/Globulin Ratio 0.7L Height (Feet): 5 Height (Inches): 1.00 Weight (Pounds): 131 General Appearance: lethargic EENT: normal ENT inspection Neck: normal alignment Cardiovascular: normal peripheral pulses, normal rate, regular rhythm Respiratory/Chest: chest wall non-tender, lungs clear, normal breath sounds Abdomen: normal bowel sounds, non tender, soft Extremities: normal inspection Edema: no edema noted Arm (L), no edema noted Arm (R), no edema noted Leg (L), no edema noted Leg (R), no edema noted Pedal (L), no edema noted Pedal (R), no edema noted Generalized Neurologic: motor weakness Skin: normal pigmentation, warm/dry Assessment/Plan Problem List: (1) Weakness ICD Codes: R53.1 - Weakness SNOMED: 05188652 (2) DM (diabetes mellitus) ICD Codes: E11.9 - Type 2 diabetes mellitus without complications SNOMED: 08964243 (3) Anemia ICD Codes: D64.9 - Anemia, unspecified SNOMED: 659787940 Qualifiers: Qualified Codes: D64.9 - Anemia, unspecified (4) Acute renal failure ICD Codes: N17.9 - Acute kidney failure, unspecified SNOMED: 90977488 Qualifiers: Qualified Codes: N17.9 - Acute kidney failure, unspecified (5) FTT (failure to thrive) in adult ICD Codes: R62.7 - Adult failure to thrive SNOMED: 177270775 Status: stable, progressing Assessment/Plan: pt diet gi f/u transfuse prn cbc bmp am dc if clear Danyel Mohan DO Jul 25, 2020 10:12
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
--- NOTE | 2020-07-25 11:43 | Pre-Procedure Note/Attestation ---
Pre-Procedure Note/Attestation Complete Prior to Procedure Planned Procedure: not applicable Procedure Narrative: EGD and colonoscopy Indications for Procedure Pre-Operative Diagnosis: gib Attestation I attest that I discussed the nature of the procedure; its benefits; risks and complications; and alternatives (and the risks and benefits of such alternatives), prior to the procedure, with the patient (or the patient's legal outside sales representative). I attest that, if there was a reasonable possibility of needing a blood t ransfusion, the patient (or the patient's legal outside sales representative) was given the [facility] standardized written summary, pursuant to the Ulises Daquan Blood Safety Act ([place] Health and Safety Code # 1645, as amended). I attest that I re-evaluated the patient just prior to the surgery and that there has been no change in the patient's H&P, except as documented below: Severiano Stanton MD Jul 25, 2020 11:43
[2020-07-25] MEDS ORDERED: Lidocaine 1% MPF 10mg/ml 5ml ONE (12:00)
--- NOTE | 2020-07-25 12:00 | NUR ---
NURSE NOTES: Patient brought down to GI lab for scheduled procedure in stable condition.
[2020-07-25] MEDS ORDERED: NS 500ML IVPB ONE (12:04)
[2020-07-25] MEDS ORDERED: fentaNYL 100 mcg/2 mL IV PRN (12:15)
[2020-07-25] MEDS ORDERED: Midazolam 2mg/2ml Inj IVP PRN (12:15)
[2020-07-25] MEDS ORDERED: DiphenhydrAMINE 50mg/ml Inj IVP PRN (12:15)
[2020-07-25] MEDS ORDERED: Atropine Inj 1mg/10ml Syr IVP PRN (12:15)
[2020-07-25] MEDS ORDERED: Labetalol 5mg/ml 20ml vial IV PRN (12:15)
--- NOTE | 2020-07-25 12:26 | Anethesia Preoperative Eval ---
Anesthesia Pre-op PMH/ROS General Date of Evaluation: Jul 25, 2020 Time of Evaluation: 11:45 Anesthesiologist: steven ASA Score: ASA 4 Mallampati Score Class I : Soft palate, uvula, fauces, pillars visible Class II: Soft palate, uvula, fauces visible Class III: Soft palate, base of uvula visible Class IV: Only hard plate visible Mallampati Classification: Class II Surgeon: tristan Diagnosis: anemia Surgical Procedure: egd/colonoscopy Anesthesia History: none Social History: smoking - nonsmoker Family History: no anesthesia problems Allergies: Coded Allergies: PENICILLINS (Verified Allergy, Severe, Rash, 12/23/13) PENICILLIN G (Unverified Allergy, Unknown, 11/17/18) Medications: see eMAR Patient NPO?: Yes Past Medical History Cardiovascular: Reports: HTN Pulmonary: Reports: other - uri Gastrointestinal/Genitourinary: Reports: GERD, ESRD, other - hep c, hep b Neurologic/Psychiatric: Reports: depression/anxiety, other - blind od, weakness Endocrine: Reports: DM, hypothyroidism Hematology/Immune: Reports: other - failure to thrive Musculoskeletal/Integumentary: Reports: other - left leg pain, back pain, hidradenitis supprativa Anesthesia Pre-op Phys. Exam Physician Exam Last Vital Signs Date Time Temp Pulse Resp B/P (MAP) Pulse Ox O2 Delivery O2 Flow Rate FiO2 07/25/20 12:00 98.2 87 20 146/73 (97) 97 07/25/20 09:00 Room Air Room Air Constitutional: NAD Neurologic: other - right eye blind Cardiovascular: RRR Respiratory: CTA Gastrointestinal: S/NT/ND Airway Exam Mallampati Score: Class II MO: limited Neck: flexible TMD: 2fb ROM: limited Anesthesia Pre-op A/P Labs Microbiology Date/Time Source Procedure Growth Status 07/24/20 12:20 Nasopharynx SARS-CoV-2 RdRp Gene Assay - Final Complete 07/19/20 14:35 Urine,Clean Catch Urine Culture - Final Mixed Gram Positive Organism Complete Hematology Test 07/25/20 06:50 White Blood Count 8.8 K/UL (4.8-10.8) Red Blood Count 3.04 M/UL (4.20-5.40) L Hemoglobin 9.4 G/DL (12.0-16.0) L Hematocrit 27.1 % (37.0-47.0) L Mean Corpuscular Volume 89 FL (80-99) Mean Corpuscular Hemoglobin 30.8 PG (27.0-31.0) Mean Corpuscular Hemoglobin Concent 34.5 G/DL (32.0-36.0) Red Cell Distribution Width 13.5 % (11.6-14.8) Platelet Count 107 K/UL (150-450) L Mean Platelet Volume 6.6 FL (6.5-10.1) Neutrophils (%) (Auto) 67.1 % (45.0-75.0) Lymphocytes (%) (Auto) 18.3 % (20.0-45.0) L Monocytes (%) (Auto) 12.1 % (1.0-10.0) H Eosinophils (%) (Auto) 1.1 % (0.0-3.0) Basophils (%) (Auto) 1.5 % (0.0-2.0) Coagulation Test 07/25/20 06:50 Prothrombin Time 12.7 SEC (9.30-11.50) H Prothromb Time International Ratio 1.2 (0.9-1.1) H Activated Partial Thromboplast Time 31 SEC (23-33) Chemistry Test 07/25/20 06:50 Sodium Level 141 MMOL/L (136-145) Potassium Level 3.5 MMOL/L (3.5-5.1) Chloride Level 104 MMOL/L (98-107) Carbon Dioxide Level 24 MMOL/L (21-32) Anion Gap 13 mmol/L (5-15) Blood Urea Nitrogen 66 mg/dL (7-18) H Creatinine 4.9 MG/DL (0.55-1.30) H Estimat Glomerular Filtration Rate 10.7 mL/min (>60) Glucose Level 102 MG/DL (74-106) Uric Acid 5.2 MG/DL (2.6-7.2) Calcium Level 8.6 MG/DL (8.5-10.1) Phosphorus Level 3.1 MG/DL (2.5-4.9) Magnesium Level 1.5 MG/DL (1.8-2.4) L Total Bilirubin 0.5 MG/DL (0.2-1.0) Aspartate Amino Transf (AST/SGOT) 55 U/L (15-37) H Alanine Aminotransferase (ALT/SGPT) 41 U/L (12-78) Alkaline Phosphatase 38 U/L (46-116) L Total Protein 6.4 G/DL (6.4-8.2) Albumin 2.6 G/DL (3.4-5.0) L Globulin 3.8 g/dL Albumin/Globulin Ratio 0.7 (1.0-2.7) L Risk Assessment & Plan Assessment: [id number] Plan: mac Status Change Before Surgery: No Pre-Antibiotics Drug: Steffanie Min MD Jul 25, 2020 12:26
--- NOTE | 2020-07-25 12:58 | Immediate Post-Op Evaluation ---
Immediate Post-Op Evalulation Immediate Post-Op Evalulation Procedure: egd/colonoscopy w/bx Date of Evaluation: Jul 25, 2020 Time of Evaluation: 12:58 IV Fluids: 250ml 0.9ns Blood Products: none Estimated Blood Loss: negligible Blood Pressure Systolic: 127 Blood Pressure Diastolic: 63 Pulse Rate: 83 Respiratory Rate: 18 O2 Sat by Pulse Oximetry: 100 Temperature (Fahrenheit): 97.7 Pain Score (1-10): 0 Nausea: No Vomiting: No Complications none Patient Status: awake, reacts, patent Hydration Status: adequate Drug: Steffanie Bourgeois MD Jul 25, 2020 12:58
--- NOTE | 2020-07-25 13:00 | 48 Hour Post Anesthesia Eval ---
Post Anesthesia Evaluation Procedure: egd/colonoscopy w/bx Date of Evaluation: Jul 25, 2020 Time of Evaluation: 13:00 Blood Pressure Systolic: 138 0: 67 Pulse Rate: 83 Respiratory Rate: 18 Temperature (Fahrenheit): 97.7 O2 Sat by Pulse Oximetry: 100 Airway: patent Nausea: No Vomiting: No Pain Intensity: 0 Hydration Status: adequate Cardiopulmonary Status: stable Mental Status/LOC: patient returned to baseline Post-Anesthesia Complications: none Follow-up care needed: N/A Steffanie Quick MD Jul 25, 2020 13:00
[2020-07-25] MEDS ORDERED: Heparin1,000 units/500ml Premix(Conc:2 units/ml) IV PRN (13:11)
[2020-07-25] MEDS ORDERED: Lidocaine 2% 20mg/ml/Epi 0.005mg/ml 20ml vial INJ PRN (13:12)
--- NOTE | 2020-07-25 13:26 | Nephrology Progress Note ---
Assessment/Plan Problem List: (1) Renal failure (ARF), acute on chronic (2) Acute renal failure (3) Anemia in chronic kidney disease (CKD) (4) FTT (failure to thrive) in adult (5) DM (diabetes mellitus) Assessment Renal failure most likely acute on chronic Anemia, most likely anemia of chronic disease History of diabetes, Plan July 25: Due for dialysis catheter followed by dialysis procedure. Medication reviewed. Labs were reviewed. Abnormal electrolyte adjusted. July 24: Patient agreed to dialysis- Consented for permacath. HD in am. July 23: Clinically stable. Labs reviewed.. Medication list reviewed. Discussed regarding initiation of dialysis. Patient is still indecisive. July 22: Patient transfused 2 units of packed RBCs. Hemoglobin higher. Blood pressure medication adjusted. IV fluid discontinued. Nails catheter discontinued. Potassium supplement given. GFR 10. Continue to monitor renal parameters and electrolytes. Will discuss again the need for dialysis treatment. Physical therapy treatment ordered. Previously: 2D echocardiogram monitor results noted Kidney ultrasound, results noted Nails catheter Urine studies Avoid nephrotoxic's Anemia work-up Subcu Epogen IV iron Transfusion, patient refused transfusion. She does not believe that the type and crossmatch at the [facility] matches her blood group and type Per orders Kidney ultrasound results: SMALL LEFT KIDNEY. BOTH KIDNEYS APPEAR ECHOGENIC LIKELY REFLECTING MEDICAL RENAL DISEASE. NO OBSTRUCTIVE UROPATHY. 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 2D echocardiogram results: Normal left ventricular chamber size, systolic function and wall motion. Left ventricular ejection fraction estimated to be 65-70%. Mild left ventricular hypertrophy by 2-D. Subjective ROS Limited/Unobtainable: No Constitutional: Reports: malaise Objective Objective Last 24 Hour Vital Signs Date Time Temp Pulse Resp B/P (MAP) Pulse Ox O2 Delivery O2 Flow Rate FiO2 07/25/20 13:15 97.9 82 15 154/63 100 Room Air 07/25/20 13:06 82 21 144/65 100 Nasal Cannula 3 07/25/20 13:00 83 18 100 07/25/20 12:58 83 18 100 07/25/20 12:56 81 15 150/61 100 Nasal Cannula 3 07/25/20 12:51 83 16 138/67 100 Nasal Cannula 3 07/25/20 12:46 97.7 82 15 127/63 100 Nasal Cannula 3 07/25/20 12:00 98.2 87 20 146/73 (97) 97 9/21/20 09:00 Room Air Room Air 07/25/20 08:00 98.2 88 20 152/72 (98) 98 07/25/20 04:00 98.8 89 18 138/77 (97) 98 07/25/20 00:00 98.2 87 18 135/74 (94) 97 07/24/20 21:00 Room Air Room Air 07/24/20 20:00 98.1 88 19 143/72 (95) 98 07/24/20 16:00 98.1 84 19 139/70 (93) 96 Intake and Output 07/24/20 07/25/20 19:00 07:00 Intake Total 800 ml 60 ml Balance 800 ml 60 ml Intake Oral 800 ml IV Total 60 ml # Voids 4 # Bowel Movements 5 Current Medications Medications (Trade) Dose Ordered Sig/Irma Route PRN Reason Start Time Stop Time Status Last Admin Dose Admin Acetaminophen (Tylenol) 650 mg Q4H PRN ORAL Mild Pain (Pain Scale 1-3) 07/25/20 12:15 07/25/20 21:00 Al Hydroxide/Mg Hydroxide (Mylanta) 15 ml Q1H PRN ORAL gi upset 07/25/20 12:15 07/25/20 21:00 Allopurinol (allopurinoL) 300 mg DAILY ORAL 07/20/20 10:00 08/19/20 09:59 07/25/20 08:26 Artificial Tears (Lacri-Lube) 1 applic BID BOTH EYES 07/23/20 09:00 08/22/20 08:59 07/25/20 08:28 Atropine Sulfate (Atropine) 0.5 mg Q5M PRN IVP bpm less than 45 07/25/20 12:15 07/25/20 21:00 Dextrose (Dextrose 50%) 25 ml Q30M PRN IV Hypoglycemia 07/19/20 22:00 08/18/20 21:56 Dextrose (Dextrose 50%) 50 ml Q30M PRN IV hypoglycemia 07/19/20 22:00 08/18/20 21:59 Diphenhydramine HCl (Benadryl) 25 mg Q15M PRN IVP Itching 07/25/20 12:15 07/25/20 21:00 Docusate Sodium (Colace) 100 mg THREE TIMES A DAY ORAL 07/20/20 09:00 08/19/20 08:59 07/25/20 08:26 Epoetin Jose (Epoetin Jose-EPBX(NON ESRD)) 10,000 unit SAT-SAT-SAT SUBQ 07/20/20 21:00 10/18/20 20:59 07/22/20 20:56 Erythromycin (Ilotycin) 1 applic FOUR TIMES A DAY RIGHT EYE 07/22/20 21:00 07/29/20 20:59 07/25/20 08:28 Fentanyl Citrate (Sublimaze 100 mcg/2 mL) 25 mcg Q10M PRN IV Moderate Pain (Pain Scale 4-6) 07/25/20 12:15 07/25/20 21:00 Heparin Sodium/ Sodium Chloride (Heparin 1000 units/500ml Premix) 1,000 unit ONCE PRN IV procedure 07/25/20 13:11 07/25/20 23:59 Hydralazine HCl (Apresoline) 25 mg Q4H PRN ORAL bp over 160 syst 07/19/20 19:00 10/17/20 18:59 Insulin Aspart (NovoLOG) No Dose BEFORE MEALS SUBQ 07/19/20 23:00 10/17/20 22:59 07/24/20 16:41 Iron Sucrose 100 mg/Sodium Chloride 60 ml @ 240 mls/hr BEDTIME IV 07/21/20 21:00 07/25/20 21:14 07/24/20 20:17 Labetalol HCl (Normodyne) 5 mg Q10M PRN IV SBP>160 or____/ DBP>90 or 07/25/20 12:15 07/25/20 21:00 Levothyroxine Sodium (Synthroid) 50 mcg ACBREAKFAST ORAL 07/20/20 06:30 08/19/20 06:29 07/25/20 05:47 Lidocaine/ Epinephrine (Lidocaine 2%/ Epi 20ml) 1 ml ONCE PRN INJ procedure 07/25/20 13:12 07/25/20 23:59 Lorazepam (Ativan) 1 mg Q6H PRN ORAL For Anxiety 07/21/20 15:15 07/28/20 15:14 Memantine (Namenda) 5 mg BID ORAL 07/21/20 18:00 08/20/20 17:59 07/25/20 08:26 Metoclopramide HCl (Reglan) 5 mg BEFORE MEALS ORAL 07/22/20 11:30 08/21/20 11:29 07/25/20 11:19 Metoclopramide HCl (Reglan) 10 mg Q6H PRN IVP Nausea & Vomiting 07/19/20 19:00 08/18/20 18:59 07/24/20 22:41 Midazolam HCl (Versed 2mg/2ml vial) 1 mg Q15M PRN IVP For Anxiety 07/25/20 12:15 07/25/20 21:00 Ondansetron HCl (Zofran) 4 mg Q6H PRN IVP Nausea & Vomiting 07/24/20 21:15 08/23/20 21:14 Pantoprazole (Protonix) 40 mg EVERY 12 HOURS ORAL 07/19/20 21:00 08/18/20 20:59 07/25/20 08:26 Sodium Chloride 1,000 ml @ 10 mls/hr Q24H IVLG 07/25/20 12:15 07/25/20 14:14 Thiamine HCl (Vitamin B1) 100 mg DAILY ORAL 07/21/20 09:00 08/20/20 08:59 07/25/20 08:26 Vitamin B Complex/ Vit C/Folic Acid (Nephrovite) 1 tab DAILY ORAL 07/21/20 09:00 08/20/20 08:59 07/25/20 08:26 Laboratory Tests 07/25/20 06:50: White Blood Count 8.8, Red Blood Count 3.04L, Hemoglobin 9.4L, Hematocrit 27.1L, Mean Corpuscular Volume 89, Mean Corpuscular Hemoglobin 30.8, Mean Corpuscular Hemoglobin Concent 34.5, Red Cell Distribution Width 13.5, Platelet Count 107L, Mean Platelet Volume 6.6, Neutrophils (%) (Auto) 67.1, Lymphocytes (%) (Auto) 18.3L, Monocytes (%) (Auto) 12.1H, Eosinophils (%) (Auto) 1.1, Basophils (%) (Auto) 1.5, Prothrombin Time 12.7H, Prothromb Time International Ratio 1.2H, Activated Partial Thromboplast Time 31, Sodium Level 141, Potassium Level 3.5, Chloride Level 104, Carbon Dioxide Level 24, Anion Gap 13, Blood Urea Nitrogen 66H, Creatinine 4.9H, Estimat Glomerular Filtration Rate 10.7, Glucose Level 102, Uric Acid 5.2, Calcium Level 8.6, Phosphorus Level 3.1, Magnesium Level 1.5L, Total Bilirubin 0.5, Aspartate Amino Transf (AST/SGOT) 55H, Alanine Aminotransferase (ALT/SGPT) 41, Alkaline Phosphatase 38L, Total Protein 6.4, Al bumin 2.6L, Globulin 3.8, Albumin/Globulin Ratio 0.7L Height (Feet): 5 Height (Inches): 1.00 Weight (Pounds): 131 General Appearance: no apparent distress Cardiovascular: normal rate Respiratory/Chest: decreased breath sounds Abdomen: soft Objective No change Almas Champion MD Jul 25, 2020 13:26
--- NOTE | 2020-07-25 13:29 | Endoscopy Procedure Note ---
Endoscopy Procedure Note General Indication for Procedure: gib Procedures Performed: EGD, colonoscopy Operative Findings/Diagnosis: large colon polyp Specimen: yes Pt Tolerated Procedure Well: Yes Anesthesia Anesthesiologist: cholo Anesthesia: MAC Inserted Devices Implant(s) used?: No Quality Quality of Bowel Preparation: Good Did scope reach the cecum?: Yes Was there any complications?: No GI Core Measures 50 yrs or older w/o bx or poly: Not Applicable 10yrs. F/U recommended: Not Applicable Severiano Stanton MD Jul 25, 2020 13:29
[2020-07-25] MEDS: Lisinopril 2.5mg tab ORAL SCH ×2 (13:30→18:15)
--- NOTE | 2020-07-25 14:24 | NUR ---
NURSE NOTES: Patient returned from GI lab. EGD with biopsy and colonoscopy completed.
--- NOTE | 2020-07-25 14:45 | Procedure Note ---
DATE OF PROCEDURE: 07/25/2020 SURGEON: Severiano Stanton MD. PROCEDURE: Upper endoscopy with biopsy and colonoscopy with snare polypectomy. ANESTHESIA: Per Dr. Rubio. INSTRUMENT: Olympus adult flexible endoscope and colonoscope. INDICATION: GI bleeding. REASON FOR PROCEDURE: The procedure, risks, benefits, and possible consequences, including hemorrhage, aspiration, perforation and infection, and alternative treatments, were explained to the patient/legal guardian by Dr. Severiano Stanton and the patient/legal guardian understood and accepted these risks. PROCEDURE IN DETAIL: After informed consent was obtained and the patient was adequately sedated, Olympus upper endoscope was advanced from mouth into the second portion of duodenum and retroflexion was performed in the stomach. The patient has diffuse atrophic gastritis. Biopsy from antrum and body was obtained to rule out H. pylori infection. At this time, the upper endoscope was retrieved and the patient was turned over for colonoscopy. First, rectal exam was performed, which was positive for internal hemorrhoids. Then, the scope was advanced from the rectum into the cecum documented by appendiceal orifice, ileocecal valve, and right upper quadrant palpation. Quality of prep was good. The patient had a large polyp over 3 cm polyp in the ascending colon, sessile. It was removed in piecemeal manner. Again, this polyp was over 3 cm. There was another smaller polyp in the ascending colon removed with a hot snare polypectomy technique. The rest of the examination grossly looked within normal limits. Retroflexion of rectum showed evidence of internal hemorrhoids. SUMMARY OF FINDINGS: 1. Atrophic gastritis. 2. Large colon polyp over 3 cm in size in ascending colon status post piecemeal polypectomy. 3. Internal hemorrhoids. RECOMMENDATIONS: 1. Follow pathology and treat accordingly. 2. We will recommend repeat colonoscopy in six months. Severiano Stanton M.D. DR: Russell JOB#: [id number] CC:
--- NOTE | 2020-07-25 15:15 | Pre-Procedure Note/Attestation ---
Pre-Procedure Note/Attestation Complete Prior to Procedure Planned Procedure: not applicable Procedure Narrative: Permacath Indications for Procedure Pre-Operative Diagnosis: renal failure Attestation I attest that I discussed the nature of the procedure; its benefits; risks and complications; and alternatives (and the risks and benefits of such alternatives), prior to the procedure, with the patient (or the patient's legal player services representative). I attest that, if there was a reasonable possibility of needing a blood t ransfusion, the patient (or the patient's legal player services representative) was given the [facility] standardized written summary, pursuant to the Ulises Daquan Blood Safety Act ([place] Health and Safety Code # 1645, as amended). I attest that I re-evaluated the patient just prior to the surgery and that there has been no change in the patient's H&P, except as documented below: Tomasz Durham MD Jul 25, 2020 15:15
--- NOTE | 2020-07-25 15:16 | Brief Operative Note ---
Immediate Post Operative Note Operative Note Pre-op Diagnosis: renal failure Procedure: R IJV permacath Post-op Diagnosis: same as pre-op Surgeon: Zev DURHAM Specimen: none Complications: none Fluids: none Implant(s) used?: No Tomasz Durham MD Jul 25, 2020 15:16
--- NOTE | 2020-07-25 15:54 | NUR ---
CASE MANAGEMENT:REVIEW SI;ACUTE RENAL FAILURE. ANEMIA. FTT. 98.8 56 20 152/72 97% ON RA H/H 9.4/27.1 BUN 66 CR 4.9 MAG 1.5 AST 55 ALB 2.6 IS;PROTONIX PO Q12 SYNTHROID PO AC BREAKFAST ALLOPURINOL PO QD THIAMINE PO QD NAMENDA PO Q6 HR PRN IRON SUCROSE IV QHS REGLAN PO QIAC IVF NS BOLUS EGD/COLONOSCOPY W/BIOPSY MED SURG STATUS DCP;FROM HOME PLAN; TUNNEL CATH PLACEMENT INITIATE HD SNF PLACEMENT VS HOME WITH HOME HEALTH
--- NOTE | 2020-07-25 16:48 | NUR ---
I/R NURSE NOTE @1430 tunnel,cath,started by KAILEY CA INSERTED RT,SVC COMPLETED @1449 DRESSING DRY /INTACT PT,FULLY AWAKE/ALERT PROC,DONE UNDER LOCAL ANESTHESIA NO BLEEDING NOTED
--- NOTE | 2020-07-25 18:41 | NUR ---
RADIOLOGY NOTE: TUNNELED DIALYSIS CATHETER PLACEMENT BY DR. KEY BONNER. FA
--- NOTE | 2020-07-25 18:51 | Diagnostic Imaging Report ---
Indications: Needs long-term dialysis access Technique: Patient given IV antibiotics. Total sterile technique, including sterile probe cover and sterile gel, sterile gloves, hand hygiene, hat, mask,, sterile gown, large sterile drape, and preparation with 2% chlorhexidine utilized. Local anesthesia with 1% lidocaine. Under real-time ultrasound guidance, puncture right internal jugular vein using 21-gauge micropuncture needle, passage 0.018 guidewire, exchange for 4 Peruvian micropuncture introducer. The guidewire was used to measure the appropriate catheter length, and was removed. The sheath was left in place. The subcutaneous tract was then anesthetized with 1% lidocaine. A chest dermatotomy was made . The tunneling device was used to pull a 19 cm length BioFlo catheter through the subcutaneous tunnel to the neck dermatotomy. A guidewire was passed through the neck introducer into the inferior vena cava, and serial dilators were passed over it, followed by the introduction of a 14.5 [place]uvian AirGuard peel-away sheath. The catheter was then introduced into the sheath, the peel-away sheath was removed. Digital radiograph documents satisfactory catheter tip position in the high right atrium, no kinking at the insertion site. Both catheter ports aspirated and flushed. Catheter was fixed to the skin. Patient tolerated procedure well without immediate complication. Total fluoroscopy time 56.4 second. Total dose area product 0.48200 mGym2 Total number of images-one Comparison: None. Findings: Completion radiograph documents satisfactory position and course of the catheter, catheter tip at the high right atrium. Impression: Successful placement of right transjugular tunneled dialysis catheter, as described above
--- NOTE | 2020-07-25 19:30 | NUR ---
NURSE NOTES: Patient awake in bed, alert and oriented x4, on room air, no SOB noted. No complaints at this time. With IV access on the left arm. With right transjugular tunnel cath in place. Instructed to use call light for help. Call light in reach. Bed in lowest, lock engaged and alarm on. Will continue plan of care.
--- NOTE | 2020-07-25 19:55 | NUR ---
NURSE HAND-OFF: Important Events on Shift: S/P EGD/Colonoscopy, tunnel cath insertion, HD- 1 liter out. Patient Status: Stable Diet: Renal Pending Orders: None Pending Results/Labs: Pending EGD/colonoscopy results Pending MD notification: None Latest Vital Signs: Temperature 97.0 , Pulse 94 , B/P 146 /59 , Respiratory Rate 20 , O2 SAT 98 , Room Air, O2 Flow Rate 3 . Vital Sign Comment: Latest English Fall Score: 55 Fall Risk: High Risk Safety Measures: Call light Within Reach, Bed Alarm Zone 1, Side Rails Side Rails x2, Bed position Low and Locked. Fall Precautions: Yellow Socks Yellow Gown Door Sign Patient Fall Education Report given to Joni MORRIS.
[2020-07-25] MEDS: Epoetin Alfa-EPBX (NON ESRD)10,000 unit/ml vial SUBQ SCH (21:48)
[2020-07-25] MEDS: Iron Sucrose 100 MG in NS 55 ML IV SCH (21:59)
[2020-07-26] VITALS: BP 146/73
--- NOTE | 2020-07-26 02:28 | NUR ---
NURSE NOTES: Dressing changed on sacral. Educated patient. Patient verbalized understanding.
[2020-07-26 04:00] VITALS: BP 145/71
[2020-07-26] MEDS: Insulin NovoLOG Flexpen S/S (insulin sensitive) SUBQ SCH ×3 (05:52→16:51)
--- NOTE | 2020-07-26 06:24 | NUR ---
NURSE HAND-OFF: Important Events on Shift:Wound dressing changed, Patient Status: Stable Diet: Renal Pending Orders: labs Pending Results/Labs:AM labs Pending MD notification: Latest Vital Signs: Temperature 96.8 , Pulse 88 , B/P 145 /71 , Respiratory Rate 17 , O2 SAT 98 , Room Air, O2 Flow Rate 3 . Vital Sign Comment: Latest English Fall Score: 55 Fall Risk: High Risk Safety Measures: Call light Within Reach, Bed Alarm Zone 1, Side Rails Side Rails x2, Bed position Low and Locked. Fall Precautions: Yellow Socks Yellow Gown Door Sign Patient Fall Education
--- NOTE | 2020-07-26 06:24 | NUR ---
NURSE NOTES: Dr. Mohan made aware of wound on sacral. Waiting for new order.
[2020-07-26 06:42] LABS: HEMATOCRIT 25.5 % (37.0-47.0); HEMOGLOBIN 8.7 G/DL (12.0-16.0); MEAN CORPUSCULAR VOLUME 89 FL (80-99); PLATELET COUNT 83 K/UL (150-450); RED BLOOD COUNT 2.86 M/UL (4.20-5.40); RED CELL DISTRIBUTION WIDTH 13.6 % (11.6-14.8); WHITE BLOOD COUNT 7.3 K/UL (4.8-10.8)
[2020-07-26 07:15] LABS: ALBUMIN 2.5 G/DL (3.4-5.0); ALBUMIN/GLOBULIN RATIO 0.7 (1.0-2.7); BILIRUBIN,TOTAL 0.5 MG/DL (0.2-1.0); CALCIUM 8.6 MG/DL (8.5-10.1); CREATININE 3.8 MG/DL (0.55-1.30); PHOSPHORUS 2.8 MG/DL (2.5-4.9); POTASSIUM 3.9 MMOL/L (3.5-5.1)
--- NOTE | 2020-07-26 07:33 | NUR ---
NURSE NOTES: Report received from ARTURO Quinones. Patient seen awake, alert and oriented x4. Seen lying in bed with HOB elevated, patient currently on room air. No s/sx of SOB/Distress, no c/o any pain or gi/gu discomfort. Patient IV access located at left wrist gauge 20, asymptomatic, inplace and intact. Dialysis access site located right transjugular permacath. Bed placed on lowest and locked position, call light placed within reach and will continue to monitor for any changes of condition.
--- NOTE | 2020-07-26 07:36 | NUR ---
HAND-OFF: Report given to ARTURO Navarrete.
[2020-07-26] MEDS: Nephrovite tab (Rena-Vite) ORAL SCH (08:31)
[2020-07-26] MEDS: Thiamine 100mg tab ORAL SCH (08:31)
[2020-07-26] MEDS: Lacri-Lube Opth Oint 3.5gm BOTH EYES SCH ×2 (08:32→18:18)
[2020-07-26] MEDS: Lisinopril 2.5mg tab ORAL SCH ×2 (08:32→18:18)
[2020-07-26] MEDS: Memantine 5 MG TAB ORAL SCH ×2 (08:32→18:17)
[2020-07-26] MEDS: Erythromycin Opth Ointment 1gm RIGHT EYE SCH ×4 (08:32→20:21)
[2020-07-26] MEDS: Docusate 100mg cap ORAL SCH ×3 (08:35→18:19)
--- NOTE | 2020-07-26 08:37 | NUR ---
Speech Pathology Note (Dysphagia Evaluation) H and P, consults, progress notes, CBC, Chem. reviewed. The procedure EGD/Colonoscopy brief summary reviewed. Indication of Evaluation: Failure to thrive, rule out dysphagia S: She is upright position in bed and had regular diet breakfast, consumption is " I ate all, I think.." per patient. I discussed with her nursing at site who reported me no concerns of dysphagia. O: Her speech is clear and normal voice. Her cough is strong and protective. Her oropharyngeal motility is normal without any concern. He tolerates PO water without dysphagia. A/P 1. Normal Swallow function -Regular diet and thin liquid -Singed off from Speech/Swallow service at this time. Katarzyna Painter
--- NOTE | 2020-07-26 08:59 | Hematology/Onc Progress Note ---
Assessment/Plan Assessment/Plan Assessment and Recs # Anemia due to iron deficiency v gi bleed v chronic disease --> anemia panel has been reviewed --> hgb goal >7 --> has been started on epogen and iron --> hgb trennd 7.1-->6.7-->9.6->8.7-->9.7 --> r/o hemolysis --> stool ob++ --> blood transfusions: 2 units 07/21 --> 07/26 EGD/COLO Atrophic gastritis. Large colon polyp over 3 cm in size in ascending colon status post piecemeal polypectomy. # Thrombocytopenia rule out underlying infection, consumptive process, does have hepatitis C --> plt trend 131-->106-->89->107 --> hiv negative, hep C++ --> us abd as needed --> baseline of 90--120 is noted --> if bleeding, consider plt transfusion # Coagulopathy likely related to chronic hep c --> rx underlying hep c once discharged # Acute renal failure --> as per renal --> workup as needed --> hd prn # Abd pain, genearlized weakness --> per gi care # Dvt ppx scds Appreciate consultation and dw Rn Subjective Constitutional: Denies: no symptoms, chills, fever, malaise, weakness, other HEENT: Denies: no symptoms, eye pain, blurred vision, tearing, double vision, ear pain, ear discharge, nose pain, nose congestion, throat pain, throat swelling, mouth pain, mouth swelling, other Cardiovascular: Denies: no symptoms, chest pain, edema, irregular heart rate, lightheadedness, palpitations, syncope, other Respiratory: Denies: no symptoms, cough, shortness of breath, SOB with excertion, SOB at rest, sputum, wheezing, other Gastrointestinal/Abdominal: Denies: no symptoms, abdomen distended, abdominal pain, black stools, tarry stools, blood in stool, constipated, diarrhea, difficulty swallowing, nausea, poor appetite, poor fluid intake, rectal bleeding, vomiting, other Genitourinary: Denies: no symptoms, burning, discharge, frequency, flank pain, hematuria, incontinence, pain, urgency, other Endocrine: Denies: no symptoms, excessive sweating, flushing, intolerance to cold, intolerance to heat, increased hunger, increased thirst, increased urine, unexplained weight gain, unexplained weight loss, other Allergies: Coded Allergies: PENICILLINS (Verified Allergy, Severe, Rash, 12/23/13) PENICILLIN G (Unverified Allergy, Unknown, 11/17/18) Subjective 07/23 s/p 2 units, hgb 9.6, hiv negative, iv iron, no distress 07/24 labs are noted, no bleeding, hgb 8.7, plt 89 07/25 labs are noted, is for hd today as well as egd/colo 07/26 labs reviewed, no bleeding, egd results reviewd from yesterday andcolo neg Objective Objective Current Medications Medications (Trade) Dose Ordered Sig/Irma Route PRN Reason Start Time Stop Time Status Last Admin Dose Admin Allopurinol (allopurinoL) 300 mg DAILY ORAL 07/20/20 10:00 08/19/20 09:59 07/26/20 08:31 Artificial Tears (Lacri-Lube) 1 applic BID BOTH EYES 07/23/20 09:00 08/22/20 08:59 07/26/20 08:32 Dextrose (Dextrose 50%) 25 ml Q30M PRN IV Hypoglycemia 07/19/20 22:00 08/18/20 21:56 Dextrose (Dextrose 50%) 50 ml Q30M PRN IV hypoglycemia 07/19/20 22:00 08/18/20 21:59 Docusate Sodium (Colace) 100 mg THREE TIMES A DAY ORAL 07/20/20 09:00 08/19/20 08:59 07/26/20 08:35 Epoetin Jose (Epoetin Jose-EPBX(NON ESRD)) 10,000 unit MON-WED-SAT SUBQ 07/20/20 21:00 10/18/20 20:59 07/25/20 21:48 Erythromycin (Ilotycin) 1 applic FOUR TIMES A DAY RIGHT EYE 07/22/20 21:00 07/29/20 20:59 07/26/20 08:32 Hydralazine HCl (Apresoline) 25 mg Q4H PRN ORAL bp over 160 syst 07/19/20 19:00 10/17/20 18:59 Insulin Aspart (NovoLOG) No Dose BEFORE MEALS SUBQ 07/19/20 23:00 10/17/20 22:59 07/24/20 16:41 Levothyroxine Sodium (Synthroid) 50 mcg ACBREAKFAST ORAL 07/20/20 06:30 08/19/20 06:29 07/26/20 05:51 Lisinopril (ZestriL) 2.5 mg BID ORAL 07/25/20 13:30 08/24/20 13:29 07/26/20 08:32 Lorazepam (Ativan) 1 mg Q6H PRN ORAL For Anxiety 07/21/20 15:15 07/28/20 15:14 Memantine (Namenda) 5 mg BID ORAL 07/21/20 18:00 08/20/20 17:59 07/26/20 08:32 Metoclopramide HCl (Reglan) 5 mg BEFORE MEALS ORAL 07/22/20 11:30 08/21/20 11:29 07/26/20 05:51 Metoclopramide HCl (Reglan) 10 mg Q6H PRN IVP Nausea & Vomiting 07/19/20 19:00 08/18/20 18:59 07/24/20 22:41 Ondansetron HCl (Zofran) 4 mg Q6H PRN IVP Nausea & Vomiting 07/24/20 21:15 08/23/20 21:14 Pantoprazole (Protonix) 40 mg EVERY 12 HOURS ORAL 07/19/20 21:00 08/18/20 20:59 07/26/20 08:31 Thiamine HCl (Vitamin B1) 100 mg DAILY ORAL 07/21/20 09:00 08/20/20 08:59 07/26/20 08:31 Vitamin B Complex/ Vit C/Folic Acid (Nephrovite) 1 tab DAILY ORAL 07/21/20 09:00 08/20/20 08:59 07/26/20 08:31 Last 24 Hour Vital Signs Date Time Temp Pulse Resp B/P (MAP) Pulse Ox O2 Delivery O2 Flow Rate FiO2 07/26/20 08:32 118/63 07/26/20 04:00 96.8 88 17 145/71 (95) 98 07/26/20 00:00 98.2 88 20 146/73 (97) 99 07/25/20 21:00 Room Air Room Air 07/25/20 20:00 97.5 90 22 147/71 (96) 98 07/25/20 18:15 146/59 07/25/20 16:00 97.0 94 20 146/59 (88) 98 07/25/20 15:00 90 23 150/63 (92) 100 07/25/20 14:55 96 28 135/60 (85) 100 07/25/20 14:50 95 26 145/59 (87) 100 07/25/20 14:45 92 30 172/76 (108) 100 07/25/20 14:40 82 28 169/82 (111) 100 07/25/20 14:35 85 26 170/84 (112) 100 07/25/20 14:30 86 23 168/65 (99) 100 07/25/20 14:15 98.2 85 23 146/66 (92) 100 07/25/20 13:30 154/63 07/25/20 13:15 97.9 82 15 154/63 100 Room Air 07/25/20 13:06 82 21 144/65 100 Nasal Cannula 3 07/25/20 13:00 83 18 100 07/25/20 12:58 83 18 100 07/25/20 12:56 81 15 150/61 100 Nasal Cannula 3 07/25/20 12:51 83 16 138/67 100 Nasal Cannula 3 07/25/20 12:46 97.7 82 15 127/63 100 Nasal Cannula 3 07/25/20 12:00 98.2 87 20 146/73 (97) 97 07/25/20 09:00 Room Air Room Air 07/25/20 08:00 98.2 88 20 152/72 (98) 98 07/25/20 04:00 98.8 89 18 138/77 (97) 98 07/25/20 00:00 98.2 87 18 135/74 (94) 97 07/24/20 21:00 Room Air Room Air 07/24/20 20:00 98.1 88 19 143/72 (95) 98 07/24/20 16:00 98.1 84 19 139/70 (93) 96 07/24/20 12:00 97.2 86 18 140/68 (92) 98 07/24/20 09:00 Room Air Room Air Intake and Output 07/25/20 07/26/20 18:59 06:59 Intake Total 300 ml 60 ml Output Total 1000 ml 2 ml Balance -700 ml 58 ml IV Total 300 ml 60 ml Output Urine Total 2 ml Hemodialysis UF 1000 ml # Voids 2 Labs Test 07/24/20 06:10 07/25/20 06:50 07/26/20 05:50 White Blood Count 9.1 K/UL (4.8-10.8) 8.8 K/UL (4.8-10.8) 7.3 K/UL (4.8-10.8) Red Blood Count 2.86 M/UL (4.20-5.40) 3.04 M/UL (4.20-5.40) 2.86 M/UL (4.20-5.40) Hemoglobin 8.7 G/DL (12.0-16.0) 9.4 G/DL (12.0-16.0) 8.7 G/DL (12.0-16.0) Hematocrit 25.3 % (37.0-47.0) 27.1 % (37.0-47.0) 25.5 % (37.0-47.0) Mean Corpuscular Volume 88 FL (80-99) 89 FL (80-99) 89 FL (80-99) Mean Corpuscular Hemoglobin 30.5 PG (27.0-31.0) 30.8 PG (27.0-31.0) 30.4 PG (27.0-31.0) Mean Corpuscular Hemoglobin Concent 34.6 G/DL (32.0-36.0) 34.5 G/DL (32.0-36.0) 34.0 G/DL (32.0-36.0) Red Cell Distribution Width 13.2 % (11.6-14.8) 13.5 % (11.6-14.8) 13.6 % (11.6-14.8) Platelet Count 89 K/UL (150-450) 107 K/UL (150-450) 83 K/UL (150-450) Mean Platelet Volume 7.3 FL (6.5-10.1) 6.6 FL (6.5-10.1) 6.3 FL (6.5-10.1) Neutrophils (%) (Auto) % (45.0-75.0) 67.1 % (45.0-75.0) % (45.0-75.0) Lymphocytes (%) (Auto) % (20.0-45.0) 18.3 % (20.0-45.0) % (20.0-45.0) Monocytes (%) (Auto) % (1.0-10.0) 12.1 % (1.0-10.0) % (1.0-10.0) Eosinophils (%) (Auto) % (0.0-3.0) 1.1 % (0.0-3.0) % (0.0-3.0) Basophils (%) (Auto) % (0.0-2.0) 1.5 % (0.0-2.0) % (0.0-2.0) Differential Total Cells Counted 100 Neutrophils % (Manual) 72 % (45-75) Lymphocytes % (Manual) 17 % (20-45) Monocytes % (Manual) 10 % (1-10) Eosinophils % (Manual) 1 % (0-3) Basophils % (Manual) 0 % (0-2) Band Neutrophils 0 % (0-8) Platelet Estimate Decreased Platelet Morphology Normal Hypochromasia 1+ Anisocytosis 1+ Sodium Level 140 MMOL/L (136-145) 141 MMOL/L (136-145) 137 MMOL/L (136-145) Potassium Level 3.7 MMOL/L (3.5-5.1) 3.5 MMOL/L (3.5-5.1) 3.9 MMOL/L (3.5-5.1) Chloride Level 105 MMOL/L (98-107) 104 MMOL/L (98-107) 100 MMOL/L (98-107) Carbon Dioxide Level 23 MMOL/L (21-32) 24 MMOL/L (21-32) 28 MMOL/L (21-32) Anion Gap 12 mmol/L (5-15) 13 mmol/L (5-15) 9 mmol/L (5-15) Blood Urea Nitrogen 71 mg/dL (7-18) 66 mg/dL (7-18) 39 mg/dL (7-18) Creatinine 5.2 MG/DL (0.55-1.30) 4.9 MG/DL (0.55-1.30) 3.8 MG/DL (0.55-1.30) Estimat Glomerular Filtration Rate 9.9 mL/min (>60) 10.7 mL/min (>60) 14.3 mL/min (>60) Glucose Level 106 MG/DL (74-106) 102 MG/DL (74-106) 107 MG/DL (74-106) Calcium Level 8.6 MG/DL (8.5-10.1) 8.6 MG/DL (8.5-10.1) 8.6 MG/DL (8.5-10.1) Prothrombin Time 12.7 SEC (9.30-11.50) Prothromb Time International Ratio 1.2 (0.9-1.1) Activated Partial Thromboplast Time 31 SEC (23-33) Uric Acid 5.2 MG/DL (2.6-7.2) Phosphorus Level 3.1 MG/DL (2.5-4.9) 2.8 MG/DL (2.5-4.9) Magnesium Level 1.5 MG/DL (1.8-2.4) 1.6 MG/DL (1.8-2.4) Total Bilirubin 0.5 MG/DL (0.2-1.0) 0.5 MG/DL (0.2-1.0) Aspartate Amino Transf (AST/SGOT) 55 U/L (15-37) 70 U/L (15-37) Alanine Aminotransferase (ALT/SGPT) 41 U/L (12-78) 48 U/L (12-78) Alkaline Phosphatase 38 U/L (46-116) 41 U/L (46-116) Total Protein 6.4 G/DL (6.4-8.2) 6.3 G/DL (6.4-8.2) Albumin 2.6 G/DL (3.4-5.0) 2.5 G/DL (3.4-5.0) Globulin 3.8 g/dL 3.8 g/dL Albumin/Globulin Ratio 0.7 (1.0-2.7) 0.7 (1.0-2.7) Height (Feet): 5 Height (Inches): 1.00 Weight (Pounds): 131 Objective PE General: thin, Chronically Ill HEENT: right eye other - Enucleated; left eye Scleral Injection - Green discharge Resp: lungs clear, normal breath sounds Cardiovascular: regular rate, rhythm Gastrointestinal: no guarding, no rebound, tenderness Musculoskeletal: back normal, moves extm spontaneously Neurologic: alert, oriented - X2, sensory intact, motor weakness - Generalized, speech normal Psychiatric: no suicidal/homicidal ideation, depressed affect, anxious Skin: warm/dry Yohan Nunez MD Jul 26, 2020 08:59
[2020-07-26 09:00] VITALS: BP 118/63
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
[2020-07-26 12:00] VITALS: BP 121/69
--- NOTE | 2020-07-26 12:00 | Initial Psychiatric Evaluation ---
Psychiatry Consultation Psychiatry Consultation Chief Complaint: Generalized Weakness History of Present Illness: 70yo female who continues to have confusion and failure to thrive. Her attending has requested daily psychiatry fu to help return her to baseline cognitively. See and assesed at bedside still confused. Allergies: Coded Allergies: PENICILLINS (Verified Allergy, Severe, Rash, 12/23/13) PENICILLIN G (Unverified Allergy, Unknown, 11/17/18) Medication History Scheduled Folic Acid* (Folic Acid*), 1 MG ORAL DAILY, (Reported) Levothyroxine Sodium* (Levothyroxine Sodium*), 50 MCG ORAL DAILY, (Reported) Metformin Hcl* (Metformin Hcl*), 500 MG ORAL TWICE A DAY Multivitamins* (Multivitamins*), 1 TAB ORAL DAILY, (Reported) Omeprazole (Omeprazole), 20 MG ORAL BID, (Reported) Scheduled PRN Tramadol Hcl* (Ultram*), 50 MG ORAL Q6H PRN for For Pain Discontinued Medications Alendronate Sodium* (Fosamax*), 70 MG ORAL ONCE A WEEK, (Reported) Discontinued Reason: Pt stopped taking med Insulin Detemir (Levemir Flexpen), 18 UNITS SUBQ BEDTIME Discontinued Reason: Pt stopped taking med Insulin Glargine (Lantus), 10 SUBQ BEFORE MEALS AND HS, (Reported) Discontinued Reason: Pt stopped taking med Insulin Glargine (Lantus), 10 SUBQ BEDTIME, (Reported) Discontinued Reason: Pt stopped taking med Insulin Glargine (Lantus), 0 SUBQ BEDTIME, (Reported) Discontinued Reason: Pt stopped taking med Levofloxacin* (Levaquin*), 750 MG ORAL DAILY, (Reported) Discontinued Reason: Pt stopped taking med Nye-3 Fatty Acids (Nye-3), 100 MG PO, (Reported) Discontinued Reason: Pt stopped taking med Prednisone (Prednisone), 5 MG ORAL DAILY Discontinued Reason: Pt stopped taking med Prednisone* (Prednisone*), 10 MG ORAL DAILY, (Reported) Discontinued Reason: Pt stopped taking med Objective Data Height (Feet): 5 Height (Inches): 1.00 Weight (Pounds): 131 Appearance: disheveled Behavior Mannerisms: poor eye contact Affect: constricted Mood: depressed Speech: dysarthric Thought Process: disorganized Thought Content: delusions of grandiosity Perceptual Disturbances: auditory Suicidal Ideation: no plan Assessment/Plan Assessment/Plan: Patient appears to be still confused disorganized at times still does not understand the severity of her medical illness will continue to help her with anxiety to reduce agitation and anxiety Linda Jack MD Jul 26, 2020 12:00
--- NOTE | 2020-07-26 13:22 | General Progress Note ---
Subjective Constitutional: Reports: weakness Allergies: Coded Allergies: PENICILLINS (Verified Allergy, Severe, Rash, 12/23/13) PENICILLIN G (Unverified Allergy, Unknown, 11/17/18) All Systems: reviewed and negative except above Subjective sleepy in bed Objective Last 24 Hour Vital Signs Date Time Temp Pulse Resp B/P (MAP) Pulse Ox O2 Delivery O2 Flow Rate FiO2 07/26/20 12:00 98.7 82 18 121/69 (86) 98 07/26/20 09:00 Room Air Room Air 07/26/20 09:00 99.1 89 18 118/63 (81) 96 07/26/20 08:32 118/63 07/26/20 04:00 96.8 88 17 145/71 (95) 98 07/26/20 00:00 98.2 88 20 146/73 (97) 99 07/25/20 21:00 Room Air Room Air 07/25/20 20:00 97.5 90 22 147/71 (96) 98 07/25/20 18:15 146/59 07/25/20 16:00 97.0 94 20 146/59 (88) 98 07/25/20 15:00 90 23 150/63 (92) 100 07/25/20 14:55 96 28 135/60 (85) 100 07/25/20 14:50 95 26 145/59 (87) 100 07/25/20 14:45 92 30 172/76 (108) 100 07/25/20 14:40 82 28 169/82 (111) 100 07/25/20 14:35 85 26 170/84 (112) 100 07/25/20 14:30 86 23 168/65 (99) 100 07/25/20 14:15 98.2 85 23 146/66 (92) 100 07/25/20 13:30 154/63 Intake and Output 07/25/20 07/26/20 19:00 07:00 Intake Total 300 ml 60 ml Output Total 1000 ml 2 ml Balance -700 ml 58 ml IV Total 300 ml 60 ml Output Urine Total 2 ml Hemodialysis UF 1000 ml # Voids 2 Laboratory Tests 07/25/20 16:34: POC Whole Blood Glucose 106 07/26/20 05:50: POC Whole Blood Glucose 112H, White Blood Count 7.3, Red Blood Count 2.86L, Hemoglobin 8.7L, Hematocrit 25.5L, Mean Corpuscular Volume 89, Mean Corpuscular Hemoglobin 30.4, Mean Corpuscular Hemoglobin Concent 34.0, Red Cell Distribution Width 13.6, Platelet Count 83L, Mean Platelet Volume 6.3L, Neutrophils (%) (Auto) , Lymphocytes (%) (Auto) , Monocytes (%) (Auto) , Eosinophils (%) (Auto) , Basophils (%) (Auto) , Differential Total Cells Counted 100, Neutrophils % (Manual) 65, Lymphocytes % (Manual) 25, Monocytes % (Manual) 9, Eosinophils % (Manual) 0, Basophils % (Manual) 0, Band Neutrophils 1, Platelet Estimate DecreasedL, Platelet Morphology Normal, Red Blood Cell Morphology Normal, Sodium Level 137, Potassium Level 3.9, Chloride Level 100, Carbon Dioxide Level 28, Anion Gap 9, Blood Urea Nitrogen 39H, Creatinine 3.8H, Estimat Glomerular Filtration Rate 14.3, Glucose Level 107H, Calcium Level 8.6, Phosphorus Level 2.8, Magnesium Level 1.6L, Total Bilirubin 0.5, Aspartate Amino Transf (AST/SGOT) 70H, Alanine Aminotransferase (ALT/SGPT) 48, Alkaline Phosphatase 41L , Total Protein 6.3L, Albumin 2.5L, Globulin 3.8, Albumin/Globulin Ratio 0.7L, Hepatitis B Surface Antigen [Pending], Hepatitis B Surface Antibody, Quant [Pending], Hepatitis C Antibody [Pending] 07/26/20 11:17: POC Whole Blood Glucose 211H Height (Feet): 5 Height (Inches): 1.00 Weight (Pounds): 131 General Appearance: lethargic EENT: normal ENT inspection Neck: normal alignment Cardiovascular: normal peripheral pulses, normal rate, regular rhythm Respiratory/Chest: chest wall non-tender, lungs clear, normal breath sounds Abdomen: normal bowel sounds, non tender, soft Extremities: normal inspection Edema: no edema noted Arm (L), no edema noted Arm (R), no edema noted Leg (L), no edema noted Leg (R), no edema noted Pedal (L), no edema noted Pedal (R), no edema noted Generalized Neurologic: motor weakness Skin: normal pigmentation, warm/dry Assessment/Plan Problem List: (1) Weakness ICD Codes: R53.1 - Weakness SNOMED: 69726030 (2) DM (diabetes mellitus) ICD Codes: E11.9 - Type 2 diabetes mellitus without complications SNOMED: 40498577 (3) Anemia ICD Codes: D64.9 - Anemia, unspecified SNOMED: 192883660 Qualifiers: Qualified Codes: D64.9 - Anemia, unspecified (4) Acute renal failure ICD Codes: N17.9 - Acute kidney failure, unspecified SNOMED: 27871764 Qualifiers: Qualified Codes: N17.9 - Acute kidney failure, unspecified (5) FTT (failure to thrive) in adult ICD Codes: R62.7 - Adult failure to thrive SNOMED: 092362722 Status: stable, progressing Assessment/Plan: pt diet gi f/u transfuse prn cbc bmp am aru eval dc if clear Danyel Mohan DO Jul 26, 2020 13:22
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
--- NOTE | 2020-07-26 14:26 | NUR ---
*-*DISCHARGE PLANNING*-* PATIENT HAS BEEN ACCEPTED AND WILL BE DISCHARGED TO: [facility] P: [phone] FOR NURSE TO NURSE REPORT ROOM# 405. skilled
--- NOTE | 2020-07-26 15:11 | NUR ---
DISCHARGE PLANNING PATIENT HAS BEEN REFERRED FOR OUTPATIENT HEMODILAYSIS TO [facility] P: [phone] F: [phone]
[2020-07-26 16:00] VITALS: BP 119/79
--- NOTE | 2020-07-26 16:36 | Nephrology Progress Note ---
Assessment/Plan Problem List: (1) Renal failure (ARF), acute on chronic (2) Acute renal failure (3) Anemia in chronic kidney disease (CKD) (4) FTT (failure to thrive) in adult (5) DM (diabetes mellitus) Assessment Renal failure most likely acute on chronic Anemia, most likely anemia of chronic disease History of diabetes, Plan July 26: Dialyzed yesterday. Will order dialysis tomorrow. Patient lethargic, will discontinue oral Reglan. Meds and labs reviewed. July 25: Due for dialysis catheter followed by dialysis procedure. Medication reviewed. Labs were reviewed. Abnormal electrolyte adjusted. July 24: Patient agreed to dialysis- Consented for permacath. HD in am. July 23: Clinically stable. Labs reviewed.. Medication list reviewed. Discussed regarding initiation of dialysis. Patient is still indecisive. July 22: Patient transfused 2 units of packed RBCs. Hemoglobin higher. Blood pressure medication adjusted. IV fluid discontinued. Nails catheter discontinued. Potassium supplement given. GFR 10. Continue to monitor renal parameters and electrolytes. Will discuss again the need for dialysis treatment. Physical therapy treatment ordered. Previously: 2D echocardiogram monitor results noted Kidney ultrasound, results noted Nails catheter Urine studies Avoid nephrotoxic's Anemia work-up Subcu Epogen IV iron Transfusion, patient refused transfusion. She does not believe that the type and crossmatch at the [facility] matches her blood group and type Per orders Kidney ultrasound results: SMALL LEFT KIDNEY. BOTH KIDNEYS APPEAR ECHOGENIC LIKELY REFLECTING MEDICAL RENAL DISEASE. NO OBSTRUCTIVE UROPATHY. 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 2D echocardiogram results: Normal left ventricular chamber size, systolic function and wall motion. Left ventricular ejection fraction estimated to be 65-70%. Mild left ventricular hypertrophy by 2-D. Subjective ROS Limited/Unobtainable: No Constitutional: Reports: malaise Objective Objective Last 24 Hour Vital Signs Date Time Temp Pulse Resp B/P (MAP) Pulse Ox O2 Delivery O2 Flow Rate FiO2 07/26/20 16:00 97.1 79 18 119/79 (92) 96 07/26/20 12:00 98.7 82 18 121/69 (86) 98 07/26/20 09:00 Room Air Room Air 07/26/20 09:00 99.1 89 18 118/63 (81) 96 07/26/20 08:32 118/63 07/26/20 04:00 96.8 88 17 145/71 (95) 98 07/26/20 00:00 98.2 88 20 146/73 (97) 99 07/25/20 21:00 Room Air Room Air 07/25/20 20:00 97.5 90 22 147/71 (96) 98 07/25/20 18:15 146/59 Intake and Output 07/25/20 07/26/20 19:00 07:00 Intake Total 300 ml 60 ml Output Total 1000 ml 2 ml Balance -700 ml 58 ml IV Total 300 ml 60 ml Output Urine Total 2 ml Hemodialysis UF 1000 ml # Voids 2 Laboratory Tests 07/26/20 05:50: White Blood Count 7.3, Red Blood Count 2.86L, Hemoglobin 8.7L, Hematocrit 25.5L, Mean Corpuscular Volume 89, Mean Corpuscular Hemoglobin 30.4, Mean Corpuscular Hemoglobin Concent 34.0, Red Cell Distribution Width 13.6, Platelet Count 83L, Mean Platelet Volume 6.3L, Neutrophils (%) (Auto) , Lymphocytes (%) (Auto) , Monocytes (%) (Auto) , Eosinophils (%) (Auto) , Basophils (%) (Auto) , Differential Total Cells Counted 100, Neutrophils % (Manual) 65, Lymphocytes % (Manual) 25, Monocytes % (Manual) 9, Eosinophils % (Manual) 0, Basophils % (Manual) 0, Band Neutrophils 1, Platelet Estimate DecreasedL, Platelet Morphology Normal, Red Blood Cell Morphology Normal, Sodium Level 137, Potassium Level 3.9, Chloride Level 100, Carbon Dioxide Level 28, Anion Gap 9, Blood Urea Nitrogen 39H, Creatinine 3.8H, Estimat Glomerular Filtration Rate 14.3, Glucose Level 107H, POC Whole Blood Glucose 112H, Calcium Level 8.6, Phosphorus Level 2.8, Magnesium Level 1.6L, Total Bilirubin 0.5, Aspartate Amino Transf (AST/SGOT) 70H, Alanine Aminotransferase (ALT/SGPT) 48, Alkaline Phosphatase 41L , Total Protein 6.3L, Albumin 2.5L, Globulin 3.8, Albumin/Globulin Ratio 0.7L, Hepatitis B Surface Antigen [Pending], Hepatitis B Surface Antibody, Quant [Pending], Hepatitis C Antibody [Pending] 07/26/20 11:17: POC Whole Blood Glucose 211H 9/22/20 16:30: POC Whole Blood Glucose 175H Height (Feet): 5 Height (Inches): 1.00 Weight (Pounds): 131 General Appearance: no apparent distress Respiratory/Chest: lungs clear Abdomen: soft Objective No change Almas Champion MD Jul 26, 2020 16:36
[2020-07-26] MEDS ORDERED: Iron Sucrose 200 MG in NS 110 ML IV SCH (18:00)
[2020-07-26] MEDS ORDERED: ALLOPURINOL300 M1 ORAL (18:37)
[2020-07-26] MEDS ORDERED: COLACE100 MG ORAL (18:42)
[2020-07-26] MEDS ORDERED: PROCRIT10000 UNIT SUBQ (18:43)
[2020-07-26] MEDS ORDERED: NOVOLOG100 UNIT/5 (18:43)
[2020-07-26] MEDS ORDERED: LEVOTHYROXINE75 MCG ORAL (18:45)
[2020-07-26] MEDS ORDERED: LISINOPRIL5 MG ORAL (18:46)
[2020-07-26] MEDS ORDERED: MEMANTINE HCL5 MG PO (18:47)
[2020-07-26] MEDS ORDERED: VITAMIN B-1100 MG ORAL (18:48)
[2020-07-26] MEDS ORDERED: PANTOPRAZOLE SO40 MG ORAL (18:48)
[2020-07-26] MEDS ORDERED: NEPHROVITE1 TAB ORAL (18:49)
[2020-07-26] MEDS ORDERED: LUBRICANT EYE3.5 G2 OP (18:54)
[2020-07-26] MEDS ORDERED: ERYTHROMYCIN1 G1 OP (18:56)
--- NOTE | 2020-07-26 19:00 | NUR ---
NURSE NOTES: Gave report to ARTURO Chun in [facility]. Patient going to room 430. Ambulance transpo arranged will arrive at 2044
--- NOTE | 2020-07-26 19:30 | NUR ---
NURSE NOTES: Patient in bed, waiting for metal pickling equipment operator. For discharge today to [facility]. Will follow up metal pickling equipment operator accordingly to [facility].
--- NOTE | 2020-07-26 19:52 | NUR ---
NURSE HAND-OFF: Important Events on Shift:d/c to [facility] Patient Status: stable Diet: renal diet Pending Orders: n/a Pending Results/Labs:n/a Pending MD notification:n/a Latest Vital Signs: Temperature 97.1 , Pulse 79 , B/P 119 /79 , Respiratory Rate 18 , O2 SAT 96 , Room Air, O2 Flow Rate 3 . Vital Sign Comment: stable Latest English Fall Score: 55 Fall Risk: High Risk Safety Measures: Call light Within Reach, Bed Alarm Zone 1, Side Rails Side Rails x2, Bed position Low and Locked. Fall Precautions: Yellow Socks Yellow Gown Door Sign Patient Fall Education Report given to ARTURO Quinones.
[2020-07-26 20:00] VITALS: BP 106/54
--- NOTE | 2020-07-26 21:10 | NUR ---
NURSE NOTES: Spoke with [facility] snack foods mixer operator, inquired regarding pickers material handlers, delayed at the moment, pickers material handlers [phone]. Will inform Primary Nurse.
--- NOTE | 2020-07-26 22:30 | NUR ---
NURSE NOTES: Discharged patient stable. Report given to [facility] staff. Belongings checked and signed by patient.
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
--- NOTE | 2020-07-27 21:52 | CDS Physician Query ---
Clarification is required for compliance, coding accuracy, and to reflect severity of illness for this patient. Dear Dr. Mohan Date: 07/26/20 Malnutrition has been documented in this medical record. ID progress note on 07/26/20: FTT/malnutrition, SYLVIA on CKD IM progress notes on 07/26/20: Failure to thrive in adult, acute renal failure Discharge summary on 07/27/20: Failure to thrive/protein calorie malnutrition, Acute on chronic renal failure, requiring start of hemodialysis, Metabolic acidosis, Anemia of chronic kidney disease Labs: Albumin 2.6 L, 3.3 L In order to accurately code this and to reflect the appropriate severity of illness, please clarify diagnosis. Malnutrition: [ ] Severe [ ] Moderate [ ] Mild [ ] Unknown degree [ ] Other: [ ] Clinically Undetermined Present on Admission: [ ] Yes [ ] No [ ] Clinically Undetermined Physician signature Date Please also document in your Progress Notes and/or Discharge Summary and indicate if the condition was present on admission. HOPE
== END 2020-07-26 22:30 | DRG 674 ==
LOC: EDBD 13:54 → EMR 14:32 → 4E 14:40 → EDBEDREQ 17:26 → 4E 17:58
PROC: 30233N1 Transfusion of Nonautologous Red Blood Cells into Peripheral Vein, Percutaneous Approach (ICD-10-PCS; 2020-07-20)
PROC: 02H633Z Insertion of Infusion Device into Right Atrium, Percutaneous Approach (ICD-10-PCS; 2020-07-25)
PROC: 0DBK8ZZ Excision of Ascending Colon, Via Natural or Artificial Opening Endoscopic (ICD-10-PCS; principal; 2020-07-25 12:19)
PROC: 0DB68ZX Excision of Stomach, Via Natural or Artificial Opening Endoscopic, Diagnostic (ICD-10-PCS; principal; 2020-07-25 12:19)
PROC: 0DB78ZX Excision of Stomach, Pylorus, Via Natural or Artificial Opening Endoscopic, Diagnostic (ICD-10-PCS; principal; 2020-07-25 12:19)
PROC: 0JH63XZ Insertion of Tunneled Vascular Access Device into Chest Subcutaneous Tissue and Fascia, Percutaneous Approach (ICD-10-PCS; principal; 2020-07-25 12:19)
DX: N17.9 Acute kidney failure, unspecified (principal); E46 Unspecified protein-calorie malnutrition; D68.9 Coagulation defect, unspecified; N18.9 Chronic kidney disease, unspecified; D63.8 Anemia in other chronic diseases classified elsewhere; E11.22 Type 2 diabetes mellitus with diabetic chronic kidney disease; E03.9 Hypothyroidism, unspecified; M81.0 Age-related osteoporosis without current pathological fracture; D69.6 Thrombocytopenia, unspecified; M19.90 Unspecified osteoarthritis, unspecified site; B19.20 Unspecified viral hepatitis C without hepatic coma; R62.7 Adult failure to thrive; Z79.4 Long term (current) use of insulin; K29.40 Chronic atrophic gastritis without bleeding; K63.5 Polyp of colon; K64.8 Other hemorrhoids; H54.61 Unqualified visual loss, right eye, normal vision left eye; T14.90XS Injury, unspecified, sequela; W34.00XS Accidental discharge from unspecified firearms or gun, sequela; K21.9 Gastro-esophageal reflux disease without esophagitis; E78.5 Hyperlipidemia, unspecified; Z98.1 Arthrodesis status; Z79.84 Long term (current) use of oral hypoglycemic drugs; M10.9 Gout, unspecified; D63.1 Anemia in chronic kidney disease; R53.1 Weakness; H10.9 Unspecified conjunctivitis; F41.9 Anxiety disorder, unspecified
CPT/HCPCS: 36415; 36558; 71045; 76000; 76770; 80048; 80053; 80061; 80076; 80307; 81003; 82150; 82270; 82378; 82550; 82570; 82607; 82728; 82746; 82962; 82977; 83036; 83540; 83550; 83605; 83615; 83735; 83880; 83970; 84100; 84300; 84443; 84484; 84550; 85007; 85025; 85610; 85730; 86140; 86703; 86705; 86706; 86707; 86709; 86803; 86850; 86900; 86901; 86920; 87086; 87340; 87522; 89050; 93005; 93306; 94003; 94150; 96361; 96374; 96375; 99285; G0480; J1815; J2405; J2765; J7030; J8499; S0077; U0002